=== PATIENT | male | born 1950 | race Caucasian/White ===

== ENCOUNTER → 2018-02-14 14:43 | Outpatient (CLI) | payer OTHER, SELFPAY ==
[2018-02-14 14:51] LABS: Bacteria Urine None Seen; RBC Urine None Seen (0-5/HPF); WBC Urine None Seen (0-5/HPF)
[2018-02-14 15:17] LABS: Appearance Urine UA CLEAR; Bilirubin Urine UA NEGATIVE (NEGATIVE); Color Urine UA YELLOW; Glucose Urine UA NEGATIVE (Negative); Ketones Urine UA NEGATIVE (NEGATIVE); Leukocyte Esterase Urine UA NEGATIVE (NEGATIVE); Nitrite Urine UA Negative (Negative); Occult Blood Urine UA NEGATIVE (Negative); Protein Urine UA NEGATIVE (Negative); Specific Gravity Urine UA <=1.005 (1.000-1.035); Urobilinogen Urine UA 0.2 E.U./dL (0.2); pH Urine UA 6.5 (4.5-8.0)
[2018-02-14 15:29] LABS: Culture Indicated Urine Cult Not Indicated; Urine Comments Microscopic Normal
[2018-02-14 15:50] LABS: Add Manual Diff / Slide Review NO; Basophils Percent Auto 0.6 % (0-2); Eosinophils Percent Auto 2.7 % (2-4); Hematocrit 45.3 % (41-53); Lymphocytes Percent Auto 24.2 % (25-40); Mean Corpuscular HGB Conc 35.4 % (30-36); Mean Corpuscular Volume 90.1 fL (80-100); Monocytes Percent Auto 9.1 % (3-14); Neutrophils Absolute Auto 3600 /uL (3000-5900); Neutrophils Percent Auto 63.4 % (50-75); Platelet Count 209 X10^3/uL (150-400); Red Blood Cell Count 5.02 X10^6/uL (4.5-5.9); Red Cell Distribution Width 13.4 % (11.6-14.8); White Blood Cell Count 5.6 X10^3/uL (4.5-11.0)
[2018-02-14 16:05] LABS: Alanine Aminotransferase 32 IU/L (21-72); Albumin 4.4 g/dL (3.5-5.0); Albumin Globulin Ratio 1.6 (1.0-2.8); Alkaline Phosphatase 59 U/L (38-126); Aspartate Aminotransferase 33 IU/L (17-59); Bilirubin Total 0.6 mg/dL (0.2-1.3); Calcium 9.2 mg/dL (8.4-10.2); Estimated Glomerular Filt Rate > 60.0 mL/min (>60); Globulin 2.8 g/dL (1.7-4.1); Glucose 86 mg/dL (80-110); HEMOLYSIS 19 (0-50); Potassium 4.8 mmol/L (3.4-5.1); Sodium 132 mmol/L (137-145); Total Protein 7.2 g/dL (6.3-8.2)
[2018-02-14 16:52] LABS: TSH w/ Reflex to FT4 3.92 uIU/mL (0.47-4.68)
[2018-02-14 16:54] LABS: Vitamin B12 496 pg/mL (239-931)
== END ==
PROVIDERS: PCP Family Medicine; Visit Provider Internal Medicine
DX: R10.30 Lower abdominal pain, unspecified (principal); N48.89 Other specified disorders of penis
CPT/HCPCS: 36415; 80053; 81001; 82607; 84443; 85025

== ENCOUNTER 2018-02-18 09:03 | Emergency (ER) | payer OTHER, SELFPAY ==
[2018-02-18 09:07] VITALS: BP 159/94; PULSE 74; RESP 14; TEMP 35.9; O2SAT 100; BMI 30.1
--- NOTE | 2018-02-18 09:29 | ED.BACK ---
HPI - Back Pain/Injury General Chief Complaint: Back Pain/Injury Stated Complaint: 'REALLY SERIOUS CASE OF SCIATICA' Time Seen by Provider: 02/18/18 09:22 Source: patient Mode of arrival: wheelchair Limitations: no limitations History of Present Illness HPI Narrative: Patient is a 67-year-old male presenting with left-sided back pain. He feels like this is sciatica. He has been quite active over the past couple of weeks more so than normal. His back has been bothering him off and on for a bit however this morning is unbearable and he cannot stand up. He denies any changes in bowel or bladder habits. He has not had any fever. He does have some numbness and tingling down his left leg. He did not fall there was no direct trauma to his back. MD Complaint: back pain Onset (ago): week(s) Quality: tingling Related Data Previous Rx's Medication Instructions Recorded rosuvastatin 10 mg PO HS #90 tab 09/28/17 sildenafil (antihypertensive) 20 mg PO QDAY #20 tab 10/24/17 [Revatio] candesartan 8 mg PO QDAY #90 tab 01/03/18 levothyroxine [Synthroid] 50 mcg PO QDAY #90 tab 01/03/18 diazepam [Valium] 5 mg PO Q8HR PRN #14 tab 02/18/18 meloxicam [Mobic] 7.5 mg PO DAILY #20 tab 02/18/18 Allergies Allergy/AdvReac Type Severity Reaction Status Date / Time No Known Drug Allergies Allergy Verified 02/14/18 13:56 Review of Systems Review of Systems All systems reviewed & are unremarkable except as noted in HPI and below Constitutional Denies chills, Denies fever(s), Denies lethargy and Denies weakness ENT Ears, Nose, Mouth, and Throat: Denies vertigo Cardiovascular Denies dyspnea and Denies dyspnea on exertion Respiratory Denies cough, Denies dyspnea, Denies dyspnea on exertion and Denies wheezing Gastrointestinal Gastrointestinal: Denies abdominal pain, Denies change in bowel habits, Denies diarrhea, Denies nausea and Denies vomiting Genitourinary Denies hematuria, Denies flank pain, Denies urinary incontinence and Denies urinary urgency Musculoskeletal Reports system reviewed and no additional complaints, except as docu, Reports back pain and Reports tingling Integumentary/Breasts Denies pruritus, Denies erythema, Denies rash and Denies wounds Neurologic Denies vertigo, Reports tingling, Denies paresthesias and Denies weakness Allergic/Immunologic Denies wheezing PFSH Medical History Hyperlipidemia (Acute) Hypertension (Acute) Surgical History History of cataract removal with insertion of prosthetic lens Family History Sister Age: 69 Parkinson's disease Social History Smoking Status: Former smoker Exam Initial Vital Signs Initial Vital Signs: Vital Signs Temperature 96.6 F L 02/18/18 09:07 Pulse Rate 74 02/18/18 09:07 Respiratory Rate 14 02/18/18 09:07 Blood Pressure 159/94 H 02/18/18 09:07 Pulse Oximetry 100 02/18/18 09:07 Const General: cooperative and well developed Nutritional Appearance: well nourished Orientation: alert, awake, oriented x3 and not confused Resp Effort & Inspection: normal respiratory effort and able to speak in complete sentences Cardio Pulses: normal peripheral pulses Back/Spine/Pelvis Other: In tender in lumbar area more on the right and piriformis. No overt will tenderness no step-offs. Sensation intact bilaterally slightly decreased to soft touch in right medial thigh Skin General: no rashes or lesions noted, No jaundice and No petechiae Extrem Right lower extremity: normal to inspection and full ROM Left lower extremity: normal to inspection and full ROM Course Orders Ordered: Discontinued Medications Diazepam (Valium) 5 mg PO NOW ONE Stop: 02/18/18 09:40 Last Admin: 02/18/18 09:56 Dose: 5 mg Ketorolac Tromethamine (Toradol) 60 mg IM NOW ONE Stop: 02/18/18 09:40 Last Admin: 02/18/18 09:55 Dose: 60 mg Vital Signs - 8 hr 02/18/18 09:07 Temperature 96.6 F L Pulse Rate 74 Respiratory Rate 14 Blood Pressure 159/94 H Pulse Oximetry 100 Discharge Plan Departure Patient Disposition: Home, Self-Care Clinical Impression: Sciatic leg pain Discharge Date/Time: 02/18/18 10:48 Interventions: ED Discharge Assessment Last Done: 02/18/18 10:47 Instructions: DI for Back Pain With Sciatica Activity Restrictions/Additional Instructions: *You have been diagnosed with back pain with sciatic pain *What to do: May require physical therapy, increase activity as rate, no lifting more than 10-15, *Take medications as directed -Mobic 1 a day with food, do not combine with other and says that she has ibuprofen, Advil etc -Valium every 8 hr if needed for severe muscle spasm do not drive this causes sleepiness and dizziness *Follow up with your primary care provider in 2-3 days *Return to ER if you should have increasing weakness, loss of urine or stool, or any new, worsening or concerning symptoms Prescriptions: New meloxicam [Mobic] 7.5 mg tablet 7.5 mg PO DAILY Qty: 20 RF: 0 diazepam [Valium] 5 mg tablet 5 mg PO Q8HR PRN (Reason: muscle spasm) Qty: 14 RF: 0 No Action rosuvastatin 10 MG tablet 10 mg PO HS Qty: 90 RF: 2 sildenafil (antihypertensive) [Revatio] 20 MG tablet 20 mg PO QDAY Qty: 20 RF: 3 candesartan 8 MG tablet 8 mg PO QDAY Qty: 90 RF: 2 levothyroxine [Synthroid] 50 MCG tablet 50 mcg PO QDAY Qty: 90 RF: 2
[2018-02-18] MEDS: KETOROLAC 60 MG/2 ML VIAL IM (09:55)
[2018-02-18] MEDS: diazePAM 5 MG TABLET PO (09:56)
== END 2018-02-18 10:48 | disposition home or self-care (01) ==
PROVIDERS: Emergency Provider Emergency Medicine; PCP Family Medicine
DX: M54.30 Sciatica, unspecified side (principal)
CPT/HCPCS: 96372; 99282; 99283; J1885

== ENCOUNTER → 2018-04-03 09:22 | Outpatient (CLI) | payer OTHER, SELFPAY ==
[2018-04-03 11:29] LABS: BUN Creatinine Ratio 20.9 (6-22); Blood Urea Nitrogen 23 mg/dL (9-20); Calcium 9.1 mg/dL (8.4-10.2); Carbon Dioxide 28 mmol/L (22-32); Chloride 98 mmol/L (98-107); Estimated Glomerular Filt Rate > 60.0 mL/min (>60); Glucose 70 mg/dL (80-110); HEMOLYSIS < 15 (0-50); Potassium 5.2 mmol/L (3.4-5.1); Sodium 134 mmol/L (137-145)
== END ==
PROVIDERS: PCP Family Medicine; Visit Provider Internal Medicine
DX: E78.1 Pure hyperglyceridemia (principal); E87.1 Hypo-osmolality and hyponatremia
CPT/HCPCS: 36415; 80048

== ENCOUNTER → 2018-05-20 12:16 | Outpatient (CLI) | payer OTHER, SELFPAY ==
[2018-05-20 13:12] LABS: BUN Creatinine Ratio 19.1 (6-22); Blood Urea Nitrogen 21 mg/dL (9-20); Calcium 9.2 mg/dL (8.4-10.2); Carbon Dioxide 29 mmol/L (22-32); Chloride 101 mmol/L (98-107); Estimated Glomerular Filt Rate > 60.0 mL/min (>60); Glucose 102 mg/dL (80-110); HEMOLYSIS < 15 (0-50); Potassium 5.1 mmol/L (3.4-5.1); Sodium 140 mmol/L (137-145)
== END ==
PROVIDERS: PCP Family Medicine; Visit Provider Internal Medicine
DX: I10 Essential (primary) hypertension (principal)
CPT/HCPCS: 36415; 80048

== ENCOUNTER → 2018-10-22 07:13 | Outpatient (CLI) | payer MEDICARE, OTHER, SELFPAY ==
[2018-10-22 08:03] LABS: Add Manual Diff / Slide Review NO; Basophils Absolute Auto 0 /uL (0-100); Basophils Percent Auto 0.5 % (0-2); Eosinophils Absolute Auto 200 /uL (0-450); Eosinophils Percent Auto 3.5 % (2-4); Hematocrit 45.8 % (41-53); Hemoglobin 15.5 g/dL (13.5-17.5); Lymphocytes Absolute Auto 1700 /uL (1100-4500); Lymphocytes Percent Auto 34.1 % (25-40); Mean Corpuscular HGB Conc 33.9 % (30-36); Mean Corpuscular Hemoglobin 30.9 PG (26-34); Mean Corpuscular Volume 91.2 fL (80-100); Monocytes Absolute Auto 400 /uL (0-900); Monocytes Percent Auto 8.3 % (3-14); Neutrophils Absolute Auto 2600 /uL (1500-7000); Neutrophils Percent Auto 53.6 % (50-75); Platelet Count 216 X10^3/uL (150-400); Red Blood Cell Count 5.02 X10^6/uL (4.5-5.9); Red Cell Distribution Width 13.4 % (11.6-14.8); White Blood Cell Count 4.9 X10^3/uL (4.5-11.0)
[2018-10-22 08:54] LABS: Alanine Aminotransferase 44 IU/L (21-72); Albumin 4.5 g/dL (3.5-5.0); Albumin Globulin Ratio 1.6 (1.0-2.8); Alkaline Phosphatase 60 U/L (38-126); Aspartate Aminotransferase 40 IU/L (17-59); BUN Creatinine Ratio 15.8 (6-22); Bilirubin Total 0.7 mg/dL (0.2-1.3); Blood Urea Nitrogen 19 mg/dL (9-20); Calcium 9.4 mg/dL (8.4-10.2); Carbon Dioxide 28 mmol/L (22-32); Chloride 98 mmol/L (98-107); Cholesterol 200 mg/dL (140-199); Estimated Glomerular Filt Rate > 60.0 mL/min (>60); Globulin 2.8 g/dL (1.7-4.1); Glucose 101 mg/dL (80-110); HDL Cholesterol 52 mg/dL (40-60); HEMOLYSIS < 15 (0-50); LDL Cholesterol Calculated 104 mg/dL (<100); Potassium 4.2 mmol/L (3.4-5.1); Sodium 135 mmol/L (137-145); Total Protein 7.3 g/dL (6.3-8.2); Triglycerides 219 mg/dL (35-150)
[2018-10-22 09:53] LABS: Free T4, Direct Thyroxine 1.04 ng/dL (0.78-2.19)
== END ==
PROVIDERS: PCP Family Medicine; Visit Provider Family Medicine
DX: E03.9 Hypothyroidism, unspecified (principal); E78.5 Hyperlipidemia, unspecified; I10 Essential (primary) hypertension
CPT/HCPCS: 36415; 80053; 80061; 84439; 84443; 85025

== ENCOUNTER → 2019-10-23 07:42 | Outpatient (CLI) | payer MEDICARE, OTHER, SELFPAY ==
[2019-10-23 08:36] LABS: Add Manual Diff / Slide Review NO; Basophils Absolute Auto 0 /uL (0-100); Basophils Percent Auto 0.7 % (0-2); Eosinophils Absolute Auto 200 /uL (0-450); Eosinophils Percent Auto 3.2 % (2-4); Hematocrit 44.6 % (41-53); Hemoglobin 15.3 g/dL (13.5-17.5); Lymphocytes Absolute Auto 1800 /uL (1100-4500); Lymphocytes Percent Auto 34.8 % (25-40); Mean Corpuscular HGB Conc 34.4 % (30-36); Mean Corpuscular Hemoglobin 31.3 PG (26-34); Mean Corpuscular Volume 90.9 fL (80-100); Monocytes Absolute Auto 500 /uL (0-900); Monocytes Percent Auto 9.4 % (3-14); Neutrophils Absolute Auto 2600 /uL (1500-7000); Neutrophils Percent Auto 51.9 % (50-75); Platelet Count 224 X10^3/uL (150-400)
[2019-10-23 08:43] LABS: Alanine Aminotransferase 28 IU/L (<50); Albumin 4.2 g/dL (3.5-5.0); Albumin Globulin Ratio 1.4 (1.0-2.8); Alkaline Phosphatase 62 U/L (38-126); Aspartate Aminotransferase 31 IU/L (17-59); BUN Creatinine Ratio 13.3 (6-22); Bilirubin Total 0.7 mg/dL (0.2-1.3); Blood Urea Nitrogen 16 mg/dL (9-20); Calcium 9.5 mg/dL (8.4-10.2); Carbon Dioxide 25 mmol/L (22-32); Chloride 98 mmol/L (98-107); Cholesterol 195 mg/dL (140-199); Estimated Glomerular Filt Rate > 60.0 mL/min (>60); Globulin 2.9 g/dL (1.7-4.1); Glucose 100 mg/dL (80-110); HDL Cholesterol 44 mg/dL (40-60); HEMOLYSIS < 15 (0-50); LDL Cholesterol Calculated 96 mg/dL (<100); Potassium 4.7 mmol/L (3.4-5.1); Sodium 134 mmol/L (137-145); Total Protein 7.1 g/dL (6.3-8.2); Triglycerides 273 mg/dL (35-150)
[2019-10-23 09:13] LABS: TSH w/ Reflex to FT4 2.91 uIU/mL (0.47-4.68)
== END ==
PROVIDERS: PCP Family Medicine; Visit Provider Family Medicine
DX: E03.9 Hypothyroidism, unspecified (principal); E78.5 Hyperlipidemia, unspecified; I10 Essential (primary) hypertension; Z12.5 Encounter for screening for malignant neoplasm of prostate
CPT/HCPCS: 36415; 80053; 80061; 84443; 85025; G0103

== ENCOUNTER → 2019-12-18 11:57 | Outpatient (CLI) | payer MEDICARE, OTHER, SELFPAY ==
[2019-12-20 12:15] LABS: COVID19 Sendout Not Detected (Not Detected)
== END ==
PROVIDERS: PCP Family Medicine; Visit Provider Family Medicine
DX: R05 Cough (principal); R06.02 Shortness of breath
CPT/HCPCS: 87635

== ENCOUNTER → 2020-02-12 07:12 | Outpatient (CLI) | payer MEDICARE, OTHER, SELFPAY ==
--- NOTE | 2020-02-12 | DI.CT.S_ITS ---
PROCEDURE: CT SINUS SCREEN WO CON INDICATIONS: OTHER CHRONIC SINUSITIS TECHNIQUE: Noncontrast 3.0 mm axial images acquired from the frontal sinuses to the mid-sella, with coronal and sagittal reformats. For radiation dose reduction, the following was used: automated exposure control, adjustment of mA and/or kV according to patient size. COMPARISON: None. FINDINGS: Image quality: Excellent. Maxillary Sinuses: No bony remodeling or destruction. Sinuses are clear. Ethmoid Air Cells: No bony remodeling or destruction. Sinuses are clear. Sphenoid Sinuses: No bony remodeling or destruction. Sinuses are clear. Frontal Sinuses: No bony remodeling or destruction. Sinuses are clear. Ostiomeatal Complexes: Ostiomeatal complexes are patent. No Terri cells. Miscellaneous: Visualized intra-orbital contents are normal. No ness bullosa or paradoxical turbinate curvature. There is mild rightward nasal septal deviation with mild bilateral nasal airway stenosis. IMPRESSION: No acute sinusitis foun, no chronic mucosal thickening seen. Note is made of mild right midline nasal septal deviation with associated mild bilateral nasal airway stenosis. Dictated by: Devang Freitas M.D. on 02/12/2020 at 9:31 Approved by: Devang Freitas M.D. on 02/12/2020 at 9:33
== END ==
PROVIDERS: PCP Family Medicine; Referring Provider Otolaryngology; Visit Provider Otolaryngology
DX: J32.8 Other chronic sinusitis (principal); R09.82 Postnasal drip; R51 Headache; J34.2 Deviated nasal septum; J34.89 Other specified disorders of nose and nasal sinuses
CPT/HCPCS: 70486

== ENCOUNTER → 2020-10-27 08:10 | Outpatient (CLI) | payer MEDICARE, OTHER, SELFPAY ==
[2020-10-27 09:34] LABS: Add Manual Diff / Slide Review NO; Basophils Absolute Auto 0 /uL (0-100); Basophils Percent Auto 0.7 % (0-2); Eosinophils Absolute Auto 100 /uL (0-450); Eosinophils Percent Auto 2.8 % (2-4); Hematocrit 43.1 % (41-53); Hemoglobin 15.2 g/dL (13.5-17.5); Lymphocytes Absolute Auto 1200 /uL (1100-4500); Lymphocytes Percent Auto 29.3 % (25-40); Mean Corpuscular HGB Conc 35.2 % (30-36); Mean Corpuscular Hemoglobin 31.9 PG (26-34); Mean Corpuscular Volume 90.4 fL (80-100); Monocytes Absolute Auto 500 /uL (0-900); Neutrophils Absolute Auto 2200 /uL (1500-7000); Neutrophils Percent Auto 55.2 % (50-75); Platelet Count 212 X10^3/uL (150-400); Red Blood Cell Count 4.77 X10^6/uL (4.5-5.9); Red Cell Distribution Width 13.3 % (11.6-14.8)
[2020-10-27 09:48] LABS: Alanine Aminotransferase 31 IU/L (<50); Albumin 4.4 g/dL (3.5-5.0); Albumin Globulin Ratio 1.7 (1.0-2.8); Alkaline Phosphatase 66 U/L (38-126); Aspartate Aminotransferase 38 IU/L (17-59); BUN Creatinine Ratio 19.8 (6-22); Bilirubin Total 0.6 mg/dL (0.2-1.3); Blood Urea Nitrogen 20 mg/dL (9-20); Calcium 9.4 mg/dL (8.4-10.2); Carbon Dioxide 25 mmol/L (22-32); Chloride 95 mmol/L (98-107); Cholesterol 204 mg/dL (140-199); Estimated Glomerular Filt Rate > 60.0 mL/min (>60); Globulin 2.6 g/dL (1.7-4.1); Glucose 105 mg/dL (80-110); HDL Cholesterol 55 mg/dL (40-60); HEMOLYSIS < 15 (0-50); LDL Cholesterol Calculated 123 mg/dL (<100); Potassium 4.6 mmol/L (3.4-5.1); Sodium 127 mmol/L (137-145); Triglycerides 130 mg/dL (35-150)
[2020-10-27 10:28] LABS: Thyroid Stimulating Hormone 3.48 uIU/mL (0.47-4.68)
== END ==
PROVIDERS: PCP Family Medicine; Referring Provider Family Medicine; Visit Provider Family Medicine
DX: E03.9 Hypothyroidism, unspecified (principal); I10 Essential (primary) hypertension; E78.5 Hyperlipidemia, unspecified; Z12.5 Encounter for screening for malignant neoplasm of prostate
CPT/HCPCS: 36415; 80053; 80061; 84443; 85025; G0103

== ENCOUNTER → 2020-12-01 12:12 | Outpatient (CLI) | payer MEDICARE, OTHER, SELFPAY ==
[2020-12-01] MEDS: COVID-19 VACC, Ad26(JANSSEN)/PF 0.5 ML IM (12:34)
== END ==
PROVIDERS: PCP Family Medicine; Visit Provider Internal Medicine
DX: Z23 Encounter for immunization (principal)
CPT/HCPCS: 0031A; 91303

== ENCOUNTER → 2021-11-10 08:07 | Outpatient (CLI) | payer MEDICARE, OTHER, SELFPAY ==
[2021-11-10 09:19] LABS: Add Manual Diff / Slide Review NO; Basophils Absolute Auto 0 /uL (0-100); Eosinophils Absolute Auto 200 /uL (0-450); Eosinophils Percent Auto 4.7 % (2-4); Hematocrit 41.8 % (41-53); Hemoglobin 14.4 g/dL (13.5-17.5); Lymphocytes Absolute Auto 1200 /uL (1100-4500); Lymphocytes Percent Auto 30.8 % (25-40); Mean Corpuscular HGB Conc 34.4 % (30-36); Mean Corpuscular Hemoglobin 31.1 PG (26-34); Mean Corpuscular Volume 90.3 fL (80-100); Monocytes Absolute Auto 500 /uL (0-900); Monocytes Percent Auto 11.8 % (3-14); Neutrophils Absolute Auto 2100 /uL (1500-7000); Neutrophils Percent Auto 51.7 % (50-75); Platelet Count 218 X10^3/uL (150-400); Red Blood Cell Count 4.63 X10^6/uL (4.5-5.9); Red Cell Distribution Width 13.8 % (11.6-14.8)
[2021-11-10 09:35] LABS: Alanine Aminotransferase 21 IU/L (<50); Albumin 4.3 g/dL (3.5-5.0); Albumin Globulin Ratio 1.7 (1.0-2.8); Alkaline Phosphatase 50 U/L (38-126); Aspartate Aminotransferase 38 IU/L (17-59); BUN Creatinine Ratio 24.2 (6-22); Bilirubin Total 0.6 mg/dL (0.2-1.3); Blood Urea Nitrogen 30 mg/dL (9-20); Calcium 9.3 mg/dL (8.4-10.2); Carbon Dioxide 27 mmol/L (22-32); Chloride 96 mmol/L (98-107); Cholesterol 302 mg/dL (140-199); Estimated Glomerular Filt Rate 57.8 mL/min (>60); Globulin 2.6 g/dL (1.7-4.1); Glucose 97 mg/dL (80-110); HDL Cholesterol 68 mg/dL (40-60); HEMOLYSIS < 15 (0-50); LDL Cholesterol Calculated 206 mg/dL (<100); Potassium 4.7 mmol/L (3.4-5.1); Sodium 130 mmol/L (137-145); Total Protein 6.9 g/dL (6.3-8.2); Triglycerides 140 mg/dL (35-150)
[2021-11-10 10:16] LABS: Thyroid Stimulating Hormone 2.74 uIU/mL (0.47-4.68)
== END ==
PROVIDERS: PCP Family Medicine; Referring Provider Family Medicine; Visit Provider Family Medicine
DX: I10 Essential (primary) hypertension (principal); E78.5 Hyperlipidemia, unspecified
CPT/HCPCS: 36415; 80053; 80061; 84443; 85025

== ENCOUNTER → 2022-11-03 08:05 | Outpatient (CLI) | payer MEDICARE, OTHER, SELFPAY ==
[2022-11-03 09:04] LABS: Add Manual Diff / Slide Review NO; Basophils Absolute Auto 0 /uL (0-100); Basophils Percent Auto 0.8 % (0-2); Eosinophils Absolute Auto 200 /uL (0-450); Eosinophils Percent Auto 4.5 % (2-4); Hematocrit 41.4 % (41-53); Hemoglobin 14.1 g/dL (13.5-17.5); Lymphocytes Absolute Auto 1500 /uL (1100-4500); Lymphocytes Percent Auto 30.5 % (25-40); Mean Corpuscular HGB Conc 34.2 % (30-36); Mean Corpuscular Hemoglobin 30.3 PG (26-34); Mean Corpuscular Volume 88.5 fL (80-100); Monocytes Absolute Auto 500 /uL (0-900); Monocytes Percent Auto 11.5 % (3-14); Neutrophils Absolute Auto 2500 /uL (1500-7000); Neutrophils Percent Auto 52.7 % (50-75); Platelet Count 234 X10^3/uL (150-400); Red Blood Cell Count 4.67 X10^6/uL (4.5-5.9); White Blood Cell Count 4.8 X10^3/uL (4.5-11.0)
[2022-11-03 09:42] LABS: Alanine Aminotransferase 25 IU/L (<50); Albumin 4.3 g/dL (3.5-5.0); Albumin Globulin Ratio 1.5 (1.0-2.8); Alkaline Phosphatase 56 U/L (38-126); Aspartate Aminotransferase 35 IU/L (17-59); BUN Creatinine Ratio 20.2 (6-22); Bilirubin Total 0.7 mg/dL (0.2-1.3); Blood Urea Nitrogen 19 mg/dL (9-20); Calcium 8.9 mg/dL (8.4-10.2); Carbon Dioxide 25 mmol/L (22-32); Chloride 90 mmol/L (98-107); Cholesterol 313 mg/dL (140-199); Estimated Glomerular Filt Rate > 60 mL/min (>60); Globulin 2.8 g/dL (1.7-4.1); Glucose 92 mg/dL (80-110); HDL Cholesterol 66 mg/dL (40-60); HEMOLYSIS < 15 (0-50); LDL Cholesterol Calculated 220 mg/dL (<100); Potassium 4.6 mmol/L (3.4-5.1); Sodium 127 mmol/L (137-145); Total Protein 7.1 g/dL (6.3-8.2); Triglycerides 135 mg/dL (35-150)
[2022-11-03 10:11] LABS: Thyroid Stimulating Hormone 3.14 uIU/mL (0.47-4.68)
== END ==
PROVIDERS: PCP Family Medicine; Referring Provider Family Medicine; Visit Provider Family Medicine
DX: E03.9 Hypothyroidism, unspecified (principal); E78.2 Mixed hyperlipidemia; I10 Essential (primary) hypertension; Z79.899 Other long term (current) drug therapy
CPT/HCPCS: 36415; 80053; 80061; 84443; 85025

== ENCOUNTER 2022-12-28 12:21 | Day surgery (SDC) | payer MEDICARE, OTHER, SELFPAY ==
--- NOTE | 2022-12-28 | PATH_ITS ---
[facility] Accession Number: [id number] No. of containers..02 Tissue . 01 Material submitted: . PART A: hepatic flexure - HEPATIC FLEXURE COLON POLYP PART B: colon - TRANSVERSE COLON POLYP . 01 Diagnosis: A. Hepatic Flexure Polyp: Tubular adenoma. . B. Transverse Colon Polyp: Tubular adenoma. MRV 01/02/2023 1226 Local . 01 Electronically signed: . Toy Guerrero MD, PhD, Pathologist NPI- [id number] . 01 Gross description: . Part A: HEPATIC FLEXURE COLON POLYP: Received in formalin is 1 fragment(s) of bloom, soft tissue measuring 0.3 x 0.3 x 0.3 cm submitted entirely in 1 cassette(s) Part B: TRANSVERSE COLON POLYP: Received in formalin are 3 fragment(s) of bloom, soft tissue measuring 0.1 x 0.1 x 0.1 cm to 0.2 x 0.2 x 0.2 cm submitted entirely in 1 cassette(s) /ASHLEY 12/29/2022 2359 Local . 01 Pathologist provided ICD-10: D12.3 . 01 CPT . 775341, 248745 Specimen Comment: A courtesy copy of this report has been sent to [facility] Pathology Performed at: 01 [facility] [address] [place] [address] [address], [place], [place] [id number] MD Will Rosario MD Phone: [phone]
[2022-12-28 12:49] VITALS: BMI 28.1
[2022-12-28 12:56] VITALS: BP 172/92; PULSE 69; RESP 16; TEMP 36.2; O2SAT 99
[2022-12-28] MEDS: LACTATED RINGERS 1,000 ML 42 ML IV (13:00)
[2022-12-28 13:14] VITALS: BP 156/82
--- NOTE | 2022-12-28 13:53 | PM.HP.1 ---
History of Present Illness History of Present Illness Date Patient Seen: 12/28/22 Time Patient Seen: 13:53 Chief complaint: Colonoscopy Narrative: Mr. Rowley is 72-year-old relatively healthy man who presents today for a screening colonoscopy. He has had a colonoscopy before it was ?several years ago? (probably more than 10) and he does not recall having had any polyps at that time. He does not have any concerning symptoms no bleeding or changes in bowel habits. He has no family history of colon cancer. [facility] Medical History (Updated 12/28/22 @ 13:55 by Melina Goetz MD) Acne (~1965) Aortic stenosis (~1999) Cataract (2003) Chicken pox (~195) Coronary artery disease (~1999) Dengue fever (2007) Detached retina (2004) Hyperlipidemia Hypertension (2004) Measles (~195) Mumps (~195) Eliz's syndrome (2002) Surgical History Anesthesia H/O detached retina repair (2004) History of cataract removal with insertion of prosthetic lens (2003) Family History Sister Age: 74 Parkinson's disease Father Heart disease Mother Emphysema of lung Sister No problems noted. Social History marital status: household members: spouse Smoking Status: Former smoker alcohol intake: current substance use type: does not use Meds Home Medications and Allergies Home Medications Medication Instructions Recorded Confirmed Type fluticasone propionate 50 1 spray intranasal BID #15.8 mL 06/02/22 12/28/22 Rx mcg/actuation nasal spray,suspension (Flonase Allergy Relief) levothyroxine 75 mcg tablet See Rx Instructions .Route 11/06/22 12/28/22 Rx .COMPLEX #90 tabs amlodipine 10 mg-benazepril 20 mg 1 cap PO DAILY 12/28/22 12/28/22 History capsule ascorbic acid (vitamin C) 500 mg 500 mg PO DAILY 12/28/22 12/28/22 History tablet (Vitamin C) magnesium 200 mg tablet 400 mg PO DAILY 12/28/22 12/28/22 History multivitamin 1 tab PO DAILY 12/28/22 12/28/22 History omega 0-rax-auf-fish oil 1,000 mg 1 cap PO DAILY 12/28/22 12/28/22 History (120 mg-180 mg) capsule (Fish Oil) sildenafil (pulm.hypertension) 20 20 mg PO PRN PRN Erectile 12/28/22 12/28/22 History mg tablet (Revatio) Dysfunction Allergies Allergy/AdvReac Type Severity Reaction Status Date / Time No Known Drug Allergies Allergy Verified 12/28/22 12:48 Exam Vital Signs (past 8 hours): - 12/28/22 12:56 12/28/22 13:14 Temperature 97.2 F L Pulse Rate 69 Respiratory Rate 16 Blood Pressure 172/92 H 156/82 H Pulse Oximetry 99 Oxygen Delivery Method Room Air Oxygen Delivery Method Room Air Const General: cooperative, healthy appearing and comfortable HENMT Head: normal to inspection Eyes General: appearance normal, both eyes and all related structures Resp Effort & Inspection: normal respiratory effort and able to speak in complete sentences GI Inspection: normal to inspection Palpation: soft and No tender Assessment & Plan Assessment and plan (1) Screening for colon cancer: Status: Acute Assessment & Plan narrative: Presents today for screening colonoscopy I discussed the risks benefits and alternatives including but not limited to perforation of the colon and an incomplete exam he fully understands these risks and would like to proceed.
[2022-12-28 14:38] VITALS: BP 130/68; PULSE 61; RESP 17; TEMP 37.1; O2SAT 99
[2022-12-28 14:42] VITALS: BP 144/76; PULSE 58; RESP 13; TEMP 37; O2SAT 99
--- NOTE | 2022-12-28 14:44 | PM.OP.COLON ---
Operative Date/Time/Diagnoses Date of procedure: 12/28/22 Pre-op diagnosis: Screening for colon cancer Post-op diagnosis: same Procedure & Clinicians Study performed: Colonoscopy and biopsy Same procedure as scheduled: Yes Surgeon: Melina Goetz Procedure Notes Procedure in detail: Patient was taken to the endoscopy suite and placed in a left lateral decubitus position. Time-out was performed. Conscious sedation with the help of an anesthesiologist was performed and maintained throughout the procedure. A digital rectal exam was performed. The prostate was smooth and there were no masses or strictures. The colonoscope was introduced into the anal canal and advanced through to the cecum. Abdominal pressure was required to reach the cecum. Photograph was obtained of the appendiceal orifice. The prep was good [place] bowel prep score 2. The scope was then withdrawn slowly over the course of 19 minutes. A small very small polyp was seen at the hepatic flexure and removed in total with the biopsy forceps. A 2nd larger polyp though still less than 1 cm in size was seen in the transverse colon and removed with 2 sweeps of the biopsy forceps. There were a few small scattered diverticula within the sigmoid colon. It was retroflexed and a photograph obtained of the hemorrhoidal piles which appeared normal. Findings: divertiulosis and polyp(s) Specimen(s): other (1. Hepatic flexure colon polyp very small 2. Transverse colon polyps small) Complications: none Post-procedure Plan for aftercare: Usually the follow-up exam will be recommended in between 5 and 10 years based on the pathology of these polyps.
[2022-12-28 14:53] VITALS: BP 140/87; PULSE 60; RESP 18; TEMP 36.6; O2SAT 99
== END 2022-12-28 15:14 | disposition home or self-care (01) ==
PROVIDERS: PCP Family Medicine; Referring Provider Surgery; Visit Provider Surgery
PROC: 0DJD8ZZ Inspection of Lower Intestinal Tract, Via Natural or Artificial Opening Endoscopic (ICD-10-PCS; CPT 45378; principal; 2022-12-28 13:30)
DX: Z12.11 Encounter for screening for malignant neoplasm of colon (principal); K64.4 Residual hemorrhoidal skin tags; K57.30 Diverticulosis of large intestine without perforation or abscess without bleeding; D12.3 Benign neoplasm of transverse colon
CPT/HCPCS: 45380; J2704

== ENCOUNTER 2023-01-23 10:21 | Emergency (ER) | payer MEDICARE, OTHER, SELFPAY ==
[2023-01-23 10:22] VITALS: BP 200/91; PULSE 59; RESP 19; TEMP 36.9; O2SAT 98; BMI 27.9
--- NOTE | 2023-01-23 11:42 | ED.NEUROSD ---
HPI - Neuro Symptoms/Deficit General Chief Complaint: Neuro Symptoms/Deficit Stated Complaint: sent by [facility] poss stroke Time Seen by Provider: 01/23/23 11:25 Source: patient Mode of arrival: Ambulatory History of Present Illness HPI Narrative: Patient is a 72-year-old male who was sent over from the walk-in clinic for evaluation of a possible stroke. He states that a couple times a day only for a couple minutes he would have tingling to the right side of his tongue. He reports no other symptoms. No headache. No vision changes. No chest pain. No upper lower extremity symptoms. On Anticoagulants: No Related Data Home Medications Medication Instructions Recorded Confirmed amlodipine 10 mg-benazepril 20 mg 1 cap PO DAILY 12/28/22 01/23/23 capsule ascorbic acid (vitamin C) 500 mg 500 mg PO DAILY 12/28/22 01/23/23 tablet (Vitamin C) magnesium 200 mg tablet 400 mg PO DAILY 12/28/22 01/23/23 multivitamin 1 tab PO DAILY 12/28/22 01/23/23 omega 1-tui-lir-fish oil 1,000 mg 1 cap PO DAILY 12/28/22 01/23/23 (120 mg-180 mg) capsule (Fish Oil) sildenafil (pulm.hypertension) 20 20 mg PO PRN PRN Erectile 12/28/22 01/23/23 mg tablet (Revatio) Dysfunction Previous Rx's Medication Instructions Recorded fluticasone propionate 50 1 spray intranasal BID #15.8 mL 06/02/22 mcg/actuation nasal spray,suspension (Flonase Allergy Relief) levothyroxine 75 mcg tablet See Rx Instructions .Route 11/06/22 .COMPLEX #90 tabs Allergies Allergy/AdvReac Type Severity Reaction Status Date / Time No Known Drug Allergies Allergy Verified 01/23/23 10:46 Review of Systems Review of Systems ROS Unobtainable: All systems reviewed & are unremarkable except as noted in HPI and below Hematologic/Lymphatic On Anticoagulants: No Patient History Medical History Acne (~1965) Aortic stenosis (~1999) Cataract (2003) Chicken pox (~195) Coronary artery disease (~1999) Dengue fever (2007) Detached retina (2004) Hyperlipidemia Hypertension (2004) Measles (~195) Mumps (~1955) Eliz's syndrome (2002) Surgical History Anesthesia H/O detached retina repair (2004) History of cataract removal with insertion of prosthetic lens (2003) Family History Sister Age: 74 Parkinson's disease Father Heart disease Mother Emphysema of lung Sister No problems noted. Social History marital status: household members: spouse Smoking Status: Former smoker alcohol intake: current substance use type: does not use Smoking Status: Former smoker alcohol intake frequency: 0-2 drinks per day Substance Use Type: does not use Exam Initial Vital Signs Initial Vital Signs: Vital Signs Temperature 98.5 F 01/23/23 10:22 Pulse Rate 59 L 01/23/23 10:22 Respiratory Rate 19 01/23/23 10:22 Blood Pressure 200/91 H 01/23/23 10:22 Pulse Oximetry 98 01/23/23 10:22 Oxygen Delivery Method Room Air 01/23/23 10:22 Const General: cooperative, comfortable and No ill appearing HENMT Head: normal to inspection and normocephalic Eyes Pupils: PERRL EOM: EOM intact bilaterally Resp Effort & Inspection: normal respiratory effort Auscultation: clear to auscultation bilaterally Cardio Rate: regular rate Rhythm: regular rhythm GI Inspection: normal to inspection Skin General: no rashes or lesions noted Neuro General: patient alert, patient awake, patient oriented x3 and moves all extremities Cranial Nerves: CN's II-XI intact bilaterally Cognition: normal cognition Speech: speech normal Sensory Exam: no sensory deficits noted Extrem General: normal to inspection and capillary refill normal Scores GCS [place] coma scale eye opening: Spontaneous [place] coma scale verbal response: Orientated [place] coma scale motor response: Obey commands [place] coma scale total score: 15 Course Vital Signs Vital signs: Vital Signs - 8 hr 01/23/23 10:22 01/23/23 11:55 Temperature 98.5 F Pulse Rate 59 L 51 L Respiratory Rate 19 18 Blood Pressure 200/91 H 178/85 H Pulse Oximetry 98 96 Oxygen Delivery Method Room Air Room Air MDM - Neuro Symptoms/Deficit MDM Narrative Medical decision making narrative: Patient currently has no symptoms. His only symptom was tingling to the right side of his tongue but she is not having. It only last seconds to minutes when it occurs. He is no other associated symptoms. Nonfocal neurologic exam today. Low suspicion for CVA. Low suspicion for TIA. Low suspicion for Tracy's palsy. Unsure the exact etiology of the patient's symptoms and he understands this however if it continues he may need to see dental or potentially your nose and throat. He does not have any specific dental infection today. Patient expressed understanding and agreement with this plan. Discharge Plan Departure Patient Disposition: Home Clinical Impression: Paresthesia of tongue Instructions: DI for Numbness/Tingling Activity Restrictions/Additional Instructions: I recommend that you continue to take all of your medications as directed. I also recommend that you are taking your blood pressure at home on a regular basis and recording these numbers so that you can discuss this with your primary doctor to see if you need any changes in your blood pressure medications. Return to the emergency department for new or worsening symptoms. Prescriptions: No Action levothyroxine 75 mcg tablet See Rx Instructions .ROUTE .COMPLEX Qty: 90 3RF Dose Instruction: TAKE ONE TABLET BY MOUTH ONE TIME DAILY Rx Instructions: TAKE ONE TABLET BY MOUTH ONE TIME DAILY fluticasone propionate [Flonase Allergy Relief] 50 mcg/actuation spray,suspension 1 spray NASAL BID Qty: 15.8 3RF Rx Instructions: administer into each nostril multivitamin Tablet 1 tab PO DAILY ascorbic acid (vitamin C) [Vitamin C] 500 mg Tablet 500 mg PO DAILY magnesium 200 mg Tablet 400 mg PO DAILY omega 0-pgi-hmu-fish oil [Fish Oil] 1,000 mg (120 mg-180 mg) Capsule 1 cap PO DAILY amlodipine-benazepril 10-20 mg capsule 1 cap PO DAILY sildenafil (pulm.hypertension) [Revatio] 20 mg tablet 20 mg PO PRN PRN (Reason: Erectile Dysfunction) Referrals: Lam Bearden MD [Primary Care Provider] - Stand Alone Forms: Patient Portal/API
[2023-01-23 11:55] VITALS: BP 178/85; PULSE 51; RESP 18; O2SAT 96
== END 2023-01-23 12:02 | disposition home or self-care (01) ==
PROVIDERS: Emergency Provider Emergency Medicine; PCP Family Medicine
DX: R20.2 Paresthesia of skin (principal)
CPT/HCPCS: 99281

== ENCOUNTER → 2023-12-14 07:03 | Outpatient (CLI) | payer MEDICARE, OTHER, SELFPAY ==
[2023-12-14 07:44] LABS: Add Manual Diff / Slide Review NO; Basophils Absolute Auto 0 /uL (0-100); Basophils Percent Auto 0.7 % (0-2); Eosinophils Absolute Auto 100 /uL (0-450); Eosinophils Percent Auto 2.1 % (2-4); Hematocrit 44.2 % (41-53); Hemoglobin 15.2 g/dL (13.5-17.5); Lymphocytes Absolute Auto 1100 /uL (1100-4500); Lymphocytes Percent Auto 20.2 % (25-40); Mean Corpuscular HGB Conc 34.3 % (30-36); Mean Corpuscular Hemoglobin 30.8 PG (26-34); Mean Corpuscular Volume 89.6 fL (80-100); Monocytes Absolute Auto 600 /uL (0-900); Monocytes Percent Auto 11.2 % (3-14); Neutrophils Absolute Auto 3700 /uL (1500-7000); Neutrophils Percent Auto 65.8 % (50-75); Platelet Count 262 X10^3/uL (150-400); Red Blood Cell Count 4.93 X10^6/uL (4.5-5.9); Red Cell Distribution Width 13.8 % (11.6-14.8); White Blood Cell Count 5.6 X10^3/uL (4.5-11.0)
[2023-12-14 08:19] LABS: Alanine Aminotransferase 18 IU/L (<50); Albumin 4.3 g/dL (3.5-5.0); Albumin Globulin Ratio 1.4 (1.0-2.8); Alkaline Phosphatase 57 U/L (38-126); Aspartate Aminotransferase 27 IU/L (17-59); BUN Creatinine Ratio 14.3 (6-22); Bilirubin Total 0.9 mg/dL (0.2-1.3); Blood Urea Nitrogen 18 mg/dL (9-20); Calcium 9.4 mg/dL (8.4-10.2); Carbon Dioxide 24 mmol/L (22-32); Chloride 100 mmol/L (98-107); Cholesterol 310 mg/dL (140-199); Estimated Glomerular Filt Rate > 60 mL/min (>60); Glucose 119 mg/dL (80-110); HDL Cholesterol 59 mg/dL (40-60); HEMOLYSIS < 15 (0-50); LDL Cholesterol Calculated 216 mg/dL (<100); Potassium 4.7 mmol/L (3.4-5.1); Sodium 131 mmol/L (137-145); Total Protein 7.3 g/dL (6.3-8.2); Triglycerides 176 mg/dL (35-150)
[2023-12-14 08:44] LABS: Prostate Specific Antigen Scrn 0.846 ng/mL (0.1-4.0)
[2023-12-14 08:50] LABS: TSH w/ Reflex to FT4 3.25 uIU/mL (0.47-4.68)
== END ==
PROVIDERS: PCP Family Medicine; Referring Provider Physician Assistant; Visit Provider Physician Assistant
DX: R53.83 Other fatigue (principal); E03.9 Hypothyroidism, unspecified; Z12.5 Encounter for screening for malignant neoplasm of prostate
CPT/HCPCS: 36415; 80053; 80061; 84443; 85025; G0103

== ENCOUNTER → 2024-01-07 09:24 | Outpatient (CLI) | payer MEDICARE, OTHER, SELFPAY ==
--- NOTE | 2024-01-07 09:25 | DI.RAD.S_ITS ---
PROCEDURE: XR LUMBAR SPINE 2-3V INDICATIONS: hip pain TECHNIQUE: 3 views of the lumbar spine were acquired. COMPARISON: None. FINDINGS: Bones: 5 [id number] vertebrae are present. There is normal bony alignment. Loss of disc height and degenerative endplate changes are noted throughout lumbar spine most notably involving L4-5 level. No vertebral body compression fractures. No suspicious bony lesions. Soft tissues: Overlying bowel gas pattern is normal. No suspicious soft tissue calcifications. IMPRESSION: [id number] degenerative disc disease throughout lumbar spine most notably at L4-5 level. No acute compression fracture. Dictated by: Miguel Rice M.D. on 01/07/2024 at 10:26 Approved by: Miguel Rice M.D. on 01/07/2024 at 10:33
--- NOTE | 2024-01-07 09:25 | DI.RAD.S_ITS ---
PROCEDURE: XR HIP W PEL IF DONE RIGOBERTO MIN 4V INDICATIONS: hip pain TECHNIQUE: AP pelvis with lateral view(s) of the bilateral hip(s). COMPARISON: None. FINDINGS: Bones: No fractures or dislocations. [id number]-[id number] bilateral hip joint osteoarthritic changes are seen with superior joint space narrowing and subchondral sclerosis. No evidence of avascular necrosis of femoral head. Pelvic ring appears intact. No suspicious bony lesions. Degenerative disc disease in visualized lower lumbar spine is seen. Soft tissues: The visualized bowel gas pattern is normal. No suspicious soft tissue calcifications. IMPRESSION: Atsc-hz-[id number] bilateral hip joint osteoarthritis. No acute fracture or dislocation. No evidence of avascular necrosis. Dictated by: Miguel Rice M.D. on 01/07/2024 at 10:25 Approved by: Miguel Rice M.D. on 01/07/2024 at 10:26
== END ==
LOC: RAD 09:25
PROVIDERS: PCP Family Medicine; Referring Provider Family Medicine; Visit Provider Family Medicine
DX: M51.36 Other intervertebral disc degeneration, lumbar region (principal); M16.0 Bilateral primary osteoarthritis of hip; M54.50 Low back pain, unspecified; M25.559 Pain in unspecified hip; G89.29 Other chronic pain
CPT/HCPCS: 72100; 73522

== ENCOUNTER → 2024-03-20 13:42 | Outpatient (CLI) | payer MEDICARE, OTHER, SELFPAY ==
--- NOTE | 2024-03-20 13:43 | DI.MRI.S_ITS ---
PROCEDURE: MR LUMBAR SPINE WO CON INDICATIONS: lumbar back pain with ridculopathy on the right TECHNIQUE: Noncontrast sagittal T1 spin echo and T2 fast echo, sagittal STIR, and T2 fast spin echo through the lumbar spine. In cases with scoliosis, additional coronal T2 fast spin echo may be performed. COMPARISON: [facility], CR, XR LUMBAR SPINE 2-3V, 01/07/2024, 9:28. FINDINGS: Image quality: Excellent. Alignment and Curvature: Trace anterolisthesis of L2 on L3. Bone Marrow: Marrow is of normal overall signal. Moderate reactive endplate changes are present at L2-3, L3-4, moderate to severe L4-5. No acute vertebral body compression fractures. Spinal Cord: Conus medullaris terminates at the L1 level. Visualized cord demonstrates normal signal and size. Paraspinous Soft Tissues: No paravertebral masses. Discs: Multilevel moderate to severe disc desiccation most prominent L4-5. T12-L1: No disc bulge, spinal stenosis or foraminal narrowing. L1-L2: Minimal disc bulge without spinal stenosis or foraminal narrowing. L2-L3: Mild disc bulge with moderate spinal stenosis. Moderate left foraminal narrowing with facet and ligamentum flavum hypertrophy. L3-L4: Mild disc bulge with moderate spinal stenosis. Ldlr-[id number] left foraminal narrowing with facet and ligamentum flavum hypertrophy. L4-L5: Mild disc bulge including a right lateral/proximal foraminal component. Rdro-hn-ovhmpuyr spinal stenosis. Moderate right and mild left foraminal narrowing with facet and ligamentum flavum hypertrophy. L5-S1: Mild disc bulge without spinal stenosis. Minimal left foraminal narrowing with facet hypertrophy. IMPRESSION: Multilevel disc bulges. Multilevel spinal stenosis most severe at L2-3, L3-4 secondary to disc bulge with contributing effect of facet/ligamentum flavum arthropathy. Multilevel foraminal narrowing most severe at L4-5 secondary to facet/ligamentum flavum arthropathy. Dictated by: Carola Jones M.D. on 03/20/2024 at 16:51 Approved by: Carola Jones M.D. on 03/20/2024 at 16:59
== END ==
PROVIDERS: Family Provider Family Medicine; PCP Family Medicine; Referring Provider Family Medicine; Visit Provider Family Medicine
DX: M47.26 Other spondylosis with radiculopathy, lumbar region (principal); M51.16 Intervertebral disc disorders with radiculopathy, lumbar region; M51.17 Intervertebral disc disorders with radiculopathy, lumbosacral region; M48.061 Spinal stenosis, lumbar region without neurogenic claudication; M48.07 Spinal stenosis, lumbosacral region; M54.50 Low back pain, unspecified
CPT/HCPCS: 72148

== ENCOUNTER 2024-05-20 09:45 | Outpatient (RCR) | payer MEDICARE, OTHER, SELFPAY ==
--- NOTE | 2024-02-14 17:17 | PT.OIE ---
Current Diagnoses Other chronic pain (02/14/24) Pain in unspecified hip (02/14/24) Low back pain, unspecified (02/14/24) Past Medical History (Last Reviewed 01/23/23 @ 18:23 by David Nickerson DO) Acne (~1965) Aortic stenosis (~2000) Cataract (2003) Chicken pox (~1955) Coronary artery disease (~2000) Dengue fever (2007) Detached retina (2004) Hyperlipidemia Hypertension (2004) Measles (~1955) Mumps (~1955) Eilz's syndrome (2002) Past Surgical History (Last Reviewed 12/19/19 @ 07:27 by Isabella Reece DO) Anesthesia H/O detached retina repair (2004) History of cataract removal with insertion of prosthetic lens (2003) Visit Care Team Role Provider Type Lam Bearden MD Attending Provider Physician Family Provider Primary Care Provider Referring Provider Specialty: Family Practice Address: [address] [place] [address] Email: [email or web address] Physical Therapy Initial Evaluation PT-OP-A Visit Information Start: 02/14/24 08:14 Freq: Status: Active Protocol: Document 02/14/24 08:15 [facility] (Rec: 02/14/24 09:46 [facility] [id number]) Out-Patient Physical Therapy Visit Information Visit Information Visit Type Initial Evaluation Visit Start Time 08:15 Visit Stop Time 09:00 Visit Number 1 Evaluation Information Evaluation Date 02/14/24 PT-OP-B Current Condition Start: 02/14/24 08:14 Freq: Status: Active Protocol: Document 02/14/24 08:15 [facility] (Rec: 02/14/24 09:03 [facility] [id number]) Current Condition History of Current Condition Onset Date 3 years History of Current Condition 3 years ago had a episode where he couldn't walk due to pain in his right leg. He went to the ER and he was given a shot for pain relief but it did nothing for him. Then one day he had to crawl to the bathroom and once he got up from the toilet he could walk. Since that time his right leg on the top anterior quad is numb. He then started biking and he strained his right adductor and it has never gotten better . He notes the adductor wont relax. A few weeks ago he went and got a load of compost for his garden and after he finished the compost he sat down x 30 min afterwards his right ankle gave out and he couldn't walk. He also has a great amount of right calf tightness, if he tries to walk up a hill. He does have high blood pressure but he is on blood pressure medication. PT-OP-C Subjective Start: 02/14/24 08:14 Freq: Status: Active Protocol: Document 02/14/24 08:15 [facility] (Rec: 02/14/24 09:46 [facility] [id number]) Patient Questionnaires Lower Extremity Functional Scale LEFS Score 60 LEFS Impairment 20 to 39% Impaired (Score 48- 62) OP-PT Pain Assessment Pain Assessment Grid Paper Pain Assessment Grid Completed Yes Location right calf pain Pain Location Details right calf becomes very tight and painfull with walking [place] Intensity 6 Scale Used Numeric (0 - 10) Description Aching,Tightness Right Medial Thigh Pain Location Details adductor pain especially at insertion to the pubic bone ranges from 3-8 Intensity 8 Scale Used Numeric (0 - 10) Description Aching,Tender,Tightness,With Movement Description- Other with walking, or after cycling , difficult to relax adductors Frequency Intermittent PT-OP-F Manual Assessment Start: 02/14/24 08:14 Freq: Status: Active Protocol: Document 02/14/24 08:15 [facility] (Rec: 02/14/24 09:46 [facility] [id number]) Manual Assessments Soft Tissue Assessment Soft Tissue Mobility Assessment right sided calf tightness with decreased DF right foot right adductor tightness and tenderness especially at the proximal insertion Joint Mobility Assessment Joint Mobility Assessment right pubic upslip and right leg is shorter in supine decreased thoracic mobility and extension PT-OP-G Mobility & Gait Start: 02/14/24 08:14 Freq: Status: Active Protocol: Document 02/14/24 08:15 [facility] (Rec: 02/14/24 16:55 [facility] [id number]) OP Gait Assessment Gait Able to Maintain Weight Bearing Status Yes During Gait Comments Gait Comments Emmanuel walks with right LE in ER as compared to the left side. He says this is normal for him and he has always walked this way PT-OP-J Posture/Palpation/Skin Start: 02/14/24 08:14 Freq: Status: Active Protocol: Document 02/14/24 09:23 [facility] (Rec: 02/14/24 09:46 [facility] [id number]) Palpation Assessment Location right adductor Palpation Location tenderness to palpation at the pubic ramus attachment, Palpation Findings Soft Tissue Tightness,Spasm, Muscle Guarding Palpation Details muscle belly and proximal insertion tightness of the adductor right pubic bone Palpation Findings Tenderness Palpation Details right pubic bone is felt to be higher than the left and is tender PT-OP-K Range of Motion Start: 02/14/24 08:14 Freq: Status: Active Protocol: Document 02/14/24 09:23 [facility] (Rec: 02/14/24 09:46 [facility] [id number]) Lumbar Spine Range of Motion Lumbar Spine Active Testing Position Standing Flexion 50 Extension 10 Lateral Flexion Left 15 Lateral Flexion Right 15 ROM Limitations Soft Tissue Tightness Hip Goniometric Range of Motion Hip Left Hip ROM WFL Yes Right Hip ROM WFL Yes Ankle and Foot Goniometric Range of Motion Ankle and Foot Right Ankle/Foot ROM WFL No Testing Position Sitting Dorsiflexion with Knee Flexed 10 Dorsiflexion with Knee Extended 5 Comments right calf tightness limiting ankle dorsiflexion PT-OP-L Special Tests Start: 02/14/24 08:14 Freq: Status: Active Protocol: Document 02/14/24 09:23 [facility] (Rec: 02/14/24 09:46 [facility] [id number]) Special Tests Lumbar Spine Special Tests ASLR Test Results + Bilaterally Slump Test Results negative Straight Leg Raise Test Results negative PT-OP-M Strength Start: 02/14/24 08:14 Freq: Status: Active Protocol: Document 02/14/24 09:23 [facility] (Rec: 02/14/24 09:46 [facility] [id number]) Trunk Strength Trunk Manual Muscle Testing Flexion 3 Fair Core Stabilization poor transverse abdominal and pelvic floor recruitment, pt tends to bulge the abdominal muscle out verses pulling them in towards his spine for hip movement. PT-OP-Q Treatments Start: 02/14/24 08:14 Freq: Status: Active Protocol: Document 02/14/24 09:13 [facility] (Rec: 02/14/24 09:23 [facility] [id number]) Therapeutic Exercises Supine Exercises supine ball squeeze Reps/Minutes x 10 reps holding 5 seconds Supine TA and pelvic floor brace with march Supine Exercise Name needs cues to keep TA and pelvic floor engaged Side bilateral Reps/Minutes x 10 Comments Emmanuel did have some right sided adductor irritation with this Other Exercises quadruped TA brace Reps/Minutes hold 5-10 seconds x 10 reps Manual Therapy Treatment Manual Techniques MET for right pubic upslip Type MET right pubic upslip Body Position Supine Comments in shawn test position with right leg off plinth and left hip flexed to 90 degrees, manually resist right hip flexion and adduction while at the same time resist left hip extension x 5 reps and followed up with adductor squeeze with resistance Self-Care/Home Management Treatment Education Patient Education Home Exercise Program,Joint Protection,Pain Management Other Education Emmanuel was educated on the use of sports compression socks for his right calf tightness with walking and cycling He was given a HEP for SI joint stabilization/pubic bone stabilization PT-OP-T Assessment and Plan Start: 02/14/24 08:14 Freq: Status: Active Protocol: Document 02/14/24 08:15 [facility] (Rec: 02/14/24 09:46 [facility] [id number]) Physical Therapy Assessment Rehab Potential Rehabilitation Potential Excellent Evaluation Complexity Number of Personal Factors/Comorbidities 0 Number of Body Systems Impaired 1-2 Clinical Presentation at Evaluation Stable Impairments Impairments Activity Tolerance,Functional Activities,Functional Mobility ,Integument,Pain,Posture,ROM, Soft Tissue Mobility,Strength Goals 4 Impairment Decreased ankle ROM on the right side into DF Short Term Goal (STG) pt is educated on a home flexibility program for the calf musculature STG Duration 4 weeks [facility] Goal (LTG) Emmanuel presents with improved ankle ROM into DF on the right side by 5 degrees 3 Impairment right sided adductor spasm and tightness with pain to palpation over the pubic bone on the right and throughout the muscle belly Internal Grinder Goal (LTG) pt no longer presents with tenderness and spasm over the right adductor LTG Duration 8 weeks 2 Impairment Decreased core strength for both lumbar and SI joint stabilization Short Term Goal (STG) Emmanuel is educated on a home exercise program for core stabilization STG Duration 4 weeks Internal Grinder Goal (LTG) Emmanuel demonstrates improved stabilization with core recruitment and strength and ASLR test is negative 1 Impairment right sided adductor pain and right calf pain that worsens with walking especially up hill and biking Pain levels range from 3-8/10 for the right adductors and 6/10 for the right calf Internal Grinder Goal (LTG) Emmanuel reprots a overall reduction of pain to 2-3/10 and is able to increase his walking distance and resume biking without increased pain LTG Duration 8 weeks Assessment Summary Assessment Emmanuel is a 73 year old active male with chief complaint of right sided addcutor pain and tightness with activity. He describes his adductor as becoming tight and guarded with activity and it is difficult to relax it. He also reports right sided calf tightness and cramping with walking especially up hill. Emmanuel has a 3 year history of low back and right hip pain with intermittent symptoms but at this time it is primarily his adductor and calf tightness that is his chief complaint. He has had x -rays taken of both the spine and hip and mild-moderate degeneratvie changes at the spine specifically the L4-5. With exam today I did examine the calf and there is no redness or swelling but he was advised to seek consult if this does occur and he was educated on blood clots. He is very tight in his right calf as compared to the left and lacks DF ROM. I did also advise to use a compression sleeve with walking to help decrease pain. He is tender along the adductor musculature on the right specifically at the attachment to the pubic ramus. He is tender at the right pubic bone and it is slightly elevated as compared to the left side. Emmanuel is weak in his inner core muscle and has difficulty with transverse abdominal stabilization and facilitating his core. I did start today with a manual technique to correct the right pubic upslip followed by stabilization exercises. Emmanuel tolerated this well and is a good candidate for core stability exercises to help stabilize his spine and pelvis. Physical Therapy Plan Frequency and Duration Frequency of Treatment 2x/Week Duration of treatment (weeks) 8 Plan of Care Start Date 02/14/24 Plan of Care End Date 04/10/24 Therapeutic Interventions Therapeutic Interventions Home Exercise Program,Joint Mobilizations,Manual Therapy, Neuromuscular Re-education, Patient/Caregiver Education, Self-Care/Home Management,Soft Tissue Mobilization, Therapeutic Exercises Modalities Cold Pack/Ice Massage Next Visit Focus/Plan Next Note Type Treatment Note Next Visit Plan recheck leg length and pubic symphysis levels, review stabilization exercises and perform MET if needed again for the pubic upslip. MFR techniques for the right adductor.
--- NOTE | 2024-02-14 17:18 | PT.OPPOC ---
Physical, Occupational & Speech Therapy At [facility] Current Diagnoses Other chronic pain (02/14/24) Pain in unspecified hip (02/14/24) Low back pain, unspecified (02/14/24) Visit Care Team Role Provider Type Lam Bearden MD Attending Provider Physician Family Provider Primary Care Provider Referring Provider Specialty: Family Practice Address: [address] [place] [address], [address], [facility] Email: [email or web address] Plan Of Care PT-OP-T Assessment and Plan Start: 02/14/24 08:14 Freq: Status: Active Protocol: Document 02/14/24 08:15 [facility] (Rec: 02/14/24 09:46 [facility] [id number]) Physical Therapy Assessment Rehab Potential Rehabilitation Potential Excellent Evaluation Complexity Number of Personal Factors/Comorbidities 0 Number of Body Systems Impaired 1-2 Clinical Presentation at Evaluation Stable Impairments Impairments Activity Tolerance,Functional Activities,Functional Mobility ,Integument,Pain,Posture,ROM, Soft Tissue Mobility,Strength Goals 4 Impairment Decreased ankle ROM on the right side into DF Short Term Goal (STG) pt is educated on a home flexibility program for the calf musculature STG Duration 4 weeks Alf Goal (LTG) Emmanuel presents with improved ankle ROM into DF on the right side by 5 degrees 3 Impairment right sided adductor spasm and tightness with pain to palpation over the pubic bone on the right and throughout the muscle belly Serger Goal (LTG) pt no longer presents with tenderness and spasm over the right adductor LTG Duration 8 weeks 2 Impairment Decreased core strength for both lumbar and SI joint stabilization Short Term Goal (STG) Emmanuel is educated on a home exercise program for core stabilization STG Duration 4 weeks Alf Goal (LTG) Emmanuel demonstrates improved stabilization with core recruitment and strength and ASLR test is negative 1 Impairment right sided adductor pain and right calf pain that worsens with walking especially up hill and biking Pain levels range from 3-8/10 for the right adductors and 6/10 for the right calf Alf Goal (LTG) Emmanuel reports a overall reduction of pain to 2-3/10 and is able to increase his walking distance and resume biking without increased pain LTG Duration 8 weeks Assessment Summary Assessment Emmanuel is a 73 year old active male with chief complaint of right sided adductor pain and tightness with activity. He describes his adductor as becoming tight and guarded with activity and it is difficult to relax it. He also reports right sided calf tightness and cramping with walking especially up hill. Emmanuel has a 3 year history of low back and right hip pain with intermittent symptoms but at this time it is primarily his adductor and calf tightness that is his chief complaint. He has had x -rays taken of both the spine and hip and mild-moderate degenerative changes at the spine specifically the L4-5. With exam today I did examine the calf and there is no redness or swelling but he was advised to seek consult if this does occur and he was educated on blood clots. He is very tight in his right calf as compared to the left and lacks DF ROM. I did also advise to use a compression sleeve with walking to help decrease pain. He is tender along the adductor musculature on the right specifically at the attachment to the pubic ramus. He is tender at the right pubic bone and it is slightly elevated as compared to the left side. Emmanuel is weak in his inner core muscle and has difficulty with transverse abdominal stabilization and facilitating his core. I did start today with a manual technique to correct the right pubic upslip followed by stabilization exercises. Emmanuel tolerated this well and is a good candidate for core stability exercises to help stabilize his spine and pelvis. Physical Therapy Plan Frequency and Duration Frequency of Treatment 2x/Week Duration of treatment (weeks) 8 Plan of Care Start Date 02/14/24 Plan of Care End Date 04/10/24 Therapeutic Interventions Therapeutic Interventions Home Exercise Program,Joint Mobilizations,Manual Therapy, Neuromuscular Re-education, Patient/Caregiver Education, Self-Care/Home Management,Soft Tissue Mobilization, Therapeutic Exercises Modalities Cold Pack/Ice Massage Next Visit Focus/Plan Next Note Type Treatment Note Next Visit Plan recheck leg length and pubic symphysis levels, review stabilization exercises and perform MET if needed again for the pubic upslip. MFR techniques for the right adductor. Plan of Care Dates Plan of Care Start Date 02/14/24 Plan of Care End Date 04/10/24 Electronically Signed by: Sunshine Narvaez, PT 02/14/24 [id number] If you are in agreement with this Plan of Care, please return a signed and dated copy. I have reviewed this Plan of Care and certify that the skilled therapy services above are required to meet the patient?s needs. Physician Signature Date Printed Name and Credentials Clinical Instructor Signature Printed Name and Credentials
--- NOTE | 2024-02-19 12:12 | PT.OTN ---
Current Diagnoses Other chronic pain (02/19/24) Pain in unspecified hip (02/19/24) Low back pain, unspecified (02/19/24) Physical Therapy Treatment Note PT-OP-A Visit Information Start: 02/14/24 08:14 Freq: Status: Active Protocol: Document 02/19/24 08:10 AB (Rec: 02/19/24 12:12 AB [id number]) Out-Patient Physical Therapy Visit Information Visit Information Visit Type Treatment Note Visit Start Time 09:04 Visit Stop Time 09:49 Visit Number 2 Number of STARCH COOKER Visits 1 Evaluation Information Evaluation Date 02/14/24 PT-OP-B Current Condition Start: 02/14/24 08:14 Freq: Status: Active Protocol: Document 02/14/24 08:15 [facility] (Rec: 02/14/24 09:03 [facility] [id number]) Current Condition History of Current Condition Onset Date 3 years History of Current Condition 3 years ago had a episode where he couldn't walk due to pain in his right leg. He went to the ER and he was given a shot for pain relief but it did nothing for him. Then one day he had to crawl to the bathroom and once he got up from the toilet he could walk. Since that time his right leg on the top anterior quad is numb. He then started biking and he strained his right adductor and it has never gotten better . He notes the adductor wont relax. A few weeks ago he went and got a load of compost for his garden and after he finished the compost he sat down x 30 min afterwards his right ankle gave out and he couldn't walk. He also has a great amount of right calf tightness, if he tries to walk up a hill. He does have high blood pressure but he is on blood pressure medication. 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 Patient reports the pain at the groin has lessened, but he has not gotten back on the back and that is what aggravates it. PT-OP-F Manual Assessment Start: 02/14/24 08:14 Freq: Status: Active Protocol: Document 02/14/24 08:15 [facility] (Rec: 02/14/24 09:46 [facility] [id number]) Manual Assessments Soft Tissue Assessment Soft Tissue Mobility Assessment right sided calf tightness with decreased DF right foot right adductor tightness and tenderness especially at the proximal insertion Joint Mobility Assessment Joint Mobility Assessment right pubic upslip and right leg is shorter in supine decreased thoracic mobility and extension PT-OP-G Mobility & Gait Start: 02/14/24 08:14 Freq: Status: Active Protocol: Document 02/14/24 08:15 [facility] (Rec: 02/14/24 16:55 [facility] [id number]) OP Gait Assessment Gait Able to Maintain Weight Bearing Status Yes During Gait Comments Gait Comments Emmanuel walks with right LE in ER as compared to the left side. He says this is normal for him and he has always walked this way PT-OP-J Posture/Palpation/Skin Start: 02/14/24 08:14 Freq: Status: Active Protocol: Document 02/14/24 09:23 [facility] (Rec: 02/14/24 09:46 [facility] [id number]) Palpation Assessment Location right adductor Palpation Location tenderness to palpation at the pubic ramus attachment, Palpation Findings Soft Tissue Tightness,Spasm, Muscle Guarding Palpation Details muscle belly and proximal insertion tightness of the adductor right pubic bone Palpation Findings Tenderness Palpation Details right pubic bone is felt to be higher than the left and is tender PT-OP-K Range of Motion Start: 02/14/24 08:14 Freq: Status: Active Protocol: Document 02/14/24 09:23 [facility] (Rec: 02/14/24 09:46 [facility] [id number]) Lumbar Spine Range of Motion Lumbar Spine Active Testing Position Standing Flexion 50 Extension 10 Lateral Flexion Left 15 Lateral Flexion Right 15 ROM Limitations Soft Tissue Tightness Hip Goniometric Range of Motion Hip Left Hip ROM WFL Yes Right Hip ROM WFL Yes Ankle and Foot Goniometric Range of Motion Ankle and Foot Right Ankle/Foot ROM WFL No Testing Position Sitting Dorsiflexion with Knee Flexed 10 Dorsiflexion with Knee Extended 5 Comments right calf tightness limiting ankle dorsiflexion PT-OP-L Special Tests Start: 02/14/24 08:14 Freq: Status: Active Protocol: Document 02/14/24 09:23 [facility] (Rec: 02/14/24 09:46 [facility] [id number]) Special Tests Lumbar Spine Special Tests ASLR Test Results + Bilaterally Slump Test Results negative Straight Leg Raise Test Results negative PT-OP-M Strength Start: 02/14/24 08:14 Freq: Status: Active Protocol: Document 02/14/24 09:23 [facility] (Rec: 02/14/24 09:46 [facility] [id number]) Trunk Strength Trunk Manual Muscle Testing Flexion 3 Fair Core Stabilization poor transverse abdominal and pelvic floor recruitment, pt tends to bulge the abdominal muscle out verses pulling them in towards his spine for hip movement. PT-OP-Q Treatments Start: 02/14/24 08:14 Freq: Status: Active Protocol: Document 02/19/24 08:10 AB (Rec: 02/19/24 12:12 AB [id number]) Therapeutic Exercises Supine Exercises abdominal bracing with LE extension Supine Exercise Name verbal cues Side bilateral Reps/Minutes X10 bent knee fall out Side bilateral Reps/Minutes X10 Comments Verbal and tactile cues quadratus lumborum stretch Side bilateral Reps/Minutes X1 each LE 60 seconds Comments verbal cues buttlerfly/groin stretch Side bilateral Equipment Used 60 seconds X 2 piriformis stretch Supine Exercise Name bilateral figure 4 piriformis right LE Side bilateral Reps/Minutes 60 seconds X 1 each Standing Exercises Pallof press Side bilateral Resistance level 3 and level 4 X 10 each Reps/Minutes X10 X 2 each side Comments verbal and visual cues Manual Therapy Treatment Soft Tissue Mobilization back/hip Body Location quadratus, piriformis/glute, adductors right LE Mobilization Type Cross-Friction,Rolling Intensity/Depth Moderate Body Position Sidelying Manual Techniques MET for right pubic upslip Type MET right pubic upslip and pubic shot gun Body Position Supine Comments in shawn test position with right leg off plinth and left hip flexed to 90 degrees, manually resist right hip flexion and adduction while at the same time resist left hip extension x 5 reps and followed up with adductor squeeze with resistance, hip abd add in hooklying 6 sec X 5 PT-OP-T Assessment and Plan Start: 02/14/24 08:14 Freq: Status: Active Protocol: Document 02/19/24 08:10 AB (Rec: 05/28/24 12:12 AB [id number]) Physical Therapy Assessment Goals 4 Impairment Decreased ankle ROM on the right side into DF Short Term Goal (STG) pt is educated on a home flexibility program for the calf musculature STG Duration 4 weeks Assisted Goal (LTG) Emmanuel presents with improved ankle ROM into DF on the right side by 5 degrees 3 Impairment right sided adductor spasm and tightness with pain to palpation over the pubic bone on the right and throughout the muscle belly Assistant Plant Manager Goal (LTG) pt no longer presents with tenderness and spasm over the right adductor LTG Duration 8 weeks 2 Impairment Decreased core strength for both lumbar and SI joint stabilization Short Term Goal (STG) Emmanuel is educated on a home exercise program for core stabilization STG Duration 4 weeks Assisted Goal (LTG) Emmanuel demonstrates improved stabilization with core recruitment and strength and ASLR test is negative 1 Impairment right sided adductor pain and right calf pain that worsens with walking especially up hill and biking Pain levels range from 3-8/10 for the right adductors and 6/10 for the right calf Assistant Plant Manager Goal (LTG) Emmanuel reprots a overall reduction of pain to 2-3/10 and is able to increase his walking distance and resume biking without increased pain LTG Duration 8 weeks Assessment Summary Assessment Emmanuel reports right glute feels a little sore end of session. Physical Therapy Plan Frequency and Duration Frequency of Treatment 2x/Week Duration of treatment (weeks) 8 Plan of Care Start Date 02/14/24 Plan of Care End Date 04/10/24 Next Visit Focus/Plan Next Note Type Treatment Note Next Visit Plan possibly bent knee fall out with band, Pallof press seated on ball, assess squats, possibly progress to bug, walk outs with ball, patient reports he wants to return to the gym
--- NOTE | 2024-02-21 14:46 | PT.OTN ---
Current Diagnoses Other chronic pain (02/21/24) Pain in unspecified hip (02/21/24) Low back pain, unspecified (02/21/24) Physical Therapy Treatment Note PT-OP-A Visit Information Start: 02/14/24 08:14 Freq: Status: Active Protocol: Document 02/21/24 13:45 [facility] (Rec: 02/21/24 14:44 [facility] [id number]) Out-Patient Physical Therapy Visit Information Visit Information Visit Type Treatment Note Visit Start Time 13:45 Visit Stop Time 14:30 Visit Number 3 Number of PLASTIC DESIGN APPLIER Visits 0 PT-OP-B Current Condition Start: 02/14/24 08:14 Freq: Status: Active Protocol: Document 02/14/24 08:15 [facility] (Rec: 02/14/24 09:03 [facility] [id number]) Current Condition History of Current Condition Onset Date 3 years History of Current Condition 3 years ago had a episode where he couldn't walk due to pain in his right leg. He went to the ER and he was given a shot for pain relief but it did nothing for him. Then one day he had to crawl to the bathroom and once he got up from the toilet he could walk. Since that time his right leg on the top anterior quad is numb. He then started biking and he strained his right adductor and it has never gotten better . He notes the adductor wont relax. A few weeks ago he went and got a load of compost for his garden and after he finished the compost he sat down x 30 min afterwards his right ankle gave out and he couldn't walk. He also has a great amount of right calf tightness, if he tries to walk up a hill. He does have high blood pressure but he is on blood pressure medication. PT-OP-C Subjective Start: 02/14/24 08:14 Freq: Status: Active Protocol: Document 02/21/24 13:45 [facility] (Rec: 02/21/24 14:44 [facility] [id number]) OP-PT Subjective Patient Comments Patient Comments pt notes his adductor pain has been better but he has been building on his house and hasn 't done a lot of his exercises . His calf is still tight PT-OP-F Manual Assessment Start: 02/14/24 08:14 Freq: Status: Active Protocol: Document 02/14/24 08:15 [facility] (Rec: 02/14/24 09:46 [facility] [id number]) Manual Assessments Soft Tissue Assessment Soft Tissue Mobility Assessment right sided calf tightness with decreased DF right foot right adductor tightness and tenderness especially at the proximal insertion Joint Mobility Assessment Joint Mobility Assessment right pubic upslip and right leg is shorter in supine decreased thoracic mobility and extension PT-OP-G Mobility & Gait Start: 02/14/24 08:14 Freq: Status: Active Protocol: Document 02/14/24 08:15 [facility] (Rec: 02/14/24 16:55 [facility] [id number]) OP Gait Assessment Gait Able to Maintain Weight Bearing Status Yes During Gait Comments Gait Comments Emmanuel walks with right LE in ER as compared to the left side. He says this is normal for him and he has always walked this way PT-OP-J Posture/Palpation/Skin Start: 02/14/24 08:14 Freq: Status: Active Protocol: Document 02/14/24 09:23 [facility] (Rec: 02/14/24 09:46 [facility] [id number]) Palpation Assessment Location right adductor Palpation Location tenderness to palpation at the pubic ramus attachment, Palpation Findings Soft Tissue Tightness,Spasm, Muscle Guarding Palpation Details muscle belly and proximal insertion tightness of the adductor right pubic bone Palpation Findings Tenderness Palpation Details right pubic bone is felt to be higher than the left and is tender PT-OP-K Range of Motion Start: 02/14/24 08:14 Freq: Status: Active Protocol: Document 02/14/24 09:23 [facility] (Rec: 02/14/24 09:46 [facility] [id number]) Lumbar Spine Range of Motion Lumbar Spine Active Testing Position Standing Flexion 50 Extension 10 Lateral Flexion Left 15 Lateral Flexion Right 15 ROM Limitations Soft Tissue Tightness Hip Goniometric Range of Motion Hip Left Hip ROM WFL Yes Right Hip ROM WFL Yes Ankle and Foot Goniometric Range of Motion Ankle and Foot Right Ankle/Foot ROM WFL No Testing Position Sitting Dorsiflexion with Knee Flexed 10 Dorsiflexion with Knee Extended 5 Comments right calf tightness limiting ankle dorsiflexion PT-OP-L Special Tests Start: 02/14/24 08:14 Freq: Status: Active Protocol: Document 02/14/24 09:23 [facility] (Rec: 02/14/24 09:46 [facility] [id number]) Special Tests Lumbar Spine Special Tests ASLR Test Results + Bilaterally Slump Test Results negative Straight Leg Raise Test Results negative PT-OP-M Strength Start: 02/14/24 08:14 Freq: Status: Active Protocol: Document 02/14/24 09:23 [facility] (Rec: 02/14/24 09:46 [facility] [id number]) Trunk Strength Trunk Manual Muscle Testing Flexion 3 Fair Core Stabilization poor transverse abdominal and pelvic floor recruitment, pt tends to bulge the abdominal muscle out verses pulling them in towards his spine for hip movement. PT-OP-Q Treatments Start: 02/14/24 08:14 Freq: Status: Active Protocol: Document 02/21/24 13:45 [facility] (Rec: 02/21/24 14:44 [facility] [id number]) Therapeutic Exercises Supine Exercises supine curl up with TA activation Reps/Minutes x 10 Comments cues not to bulge through the abdominal wall TA with SLR Reps/Minutes x 10 reps Comments more challanging on left side today buttlerfly/groin stretch Side bilateral Equipment Used 60 seconds X 2 supine ball squeeze Reps/Minutes x 10 reps holding 5 seconds Supine TA and pelvic floor brace with march Reps/Minutes x 10 Comments no pain into the groin Manual Therapy Treatment Soft Tissue Mobilization MFR to the right calf Body Location right calf Mobilization Type Myofascial Release Comments worked in supine and prone on MFR and manual calf stretching . Roller was also used as a assist adductor MFR on the right side Mobilization Type Myofascial Release Intensity/Depth Moderate Body Position Supine PT-OP-T Assessment and Plan Start: 02/14/24 08:14 Freq: Status: Active Protocol: Document 02/21/24 13:45 [facility] (Rec: 02/21/24 14:44 [facility] [id number]) Physical Therapy Assessment Assessment Summary Assessment Emmanuel is doing better with improved symmetry of leg length and decreased adductor pain. I did try having him try a supine pelvic floor stretch hugging knees to chest then opening out to the side and this did cause a spasm in the right adductor today. I encouraged him to continue with stretches for home Physical Therapy Plan Frequency and Duration Frequency of Treatment 2x/Week Duration of treatment (weeks) 8 Plan of Care Start Date 02/14/24 Plan of Care End Date 04/10/24 Therapeutic Interventions Therapeutic Interventions Home Exercise Program,Joint Mobilizations,Manual Therapy, Neuromuscular Re-education, Patient/Caregiver Education, Self-Care/Home Management,Soft Tissue Mobilization, Therapeutic Exercises Modalities Cold Pack/Ice Massage Next Visit Focus/Plan Next Note Type Treatment Note Next Visit Plan review TA brace with curl up not letting Emmanuel bulge through with his rectus abdominals, reassess the calf and adductor tightness.
--- NOTE | 2024-02-26 09:05 | PT.OTN ---
Current Diagnoses Other chronic pain (02/26/24) Pain in unspecified hip (02/26/24) Low back pain, unspecified (02/26/24) Physical Therapy Treatment Note PT-OP-A Visit Information Start: 02/14/24 08:14 Freq: Status: Active Protocol: Document 02/26/24 08:07 AB (Rec: 02/26/24 09:05 AB [id number]) Out-Patient Physical Therapy Visit Information Visit Information Visit Type Treatment Note Visit Note Access Code [email or web address] Visit Start Time 08:16 Visit Stop Time 09:02 Visit Number 4 Number of YOUNG ADULT LIBRARIAN Visits 1 Evaluation Information Evaluation Date 02/14/24 PT-OP-B Current Condition Start: 02/14/24 08:14 Freq: Status: Active Protocol: Document 02/14/24 08:15 [facility] (Rec: 02/14/24 09:03 [facility] [id number]) Current Condition History of Current Condition Onset Date 3 years History of Current Condition 3 years ago had a episode where he couldn't walk due to pain in his right leg. He went to the ER and he was given a shot for pain relief but it did nothing for him. Then one day he had to crawl to the bathroom and once he got up from the toilet he could walk. Since that time his right leg on the top anterior quad is numb. He then started biking and he strained his right adductor and it has never gotten better . He notes the adductor wont relax. A few weeks ago he went and got a load of compost for his garden and after he finished the compost he sat down x 30 min afterwards his right ankle gave out and he couldn't walk. He also has a great amount of right calf tightness, if he tries to walk up a hill. He does have high blood pressure but he is on blood pressure medication. PT-OP-C Subjective Start: 02/14/24 08:14 Freq: Status: Active Protocol: Document 02/26/24 08:07 AB (Rec: 02/26/24 09:05 AB [id number]) OP-PT Subjective Patient Comments Patient Comments Patient reports he is doing good, has been busy with the porch, but was able to do all the exercises over the weekend . Patient reports he hasn't had any pain in the adductors. Patient reports planning bike tomorrow PT-OP-F Manual Assessment Start: 02/14/24 08:14 Freq: Status: Active Protocol: Document 02/14/24 08:15 [facility] (Rec: 02/14/24 09:46 [facility] [id number]) Manual Assessments Soft Tissue Assessment Soft Tissue Mobility Assessment right sided calf tightness with decreased DF right foot right adductor tightness and tenderness especially at the proximal insertion Joint Mobility Assessment Joint Mobility Assessment right pubic upslip and right leg is shorter in supine decreased thoracic mobility and extension PT-OP-G Mobility & Gait Start: 02/14/24 08:14 Freq: Status: Active Protocol: Document 02/14/24 08:15 [facility] (Rec: 02/14/24 16:55 [facility] [id number]) OP Gait Assessment Gait Able to Maintain Weight Bearing Status Yes During Gait Comments Gait Comments Emmanuel walks with right LE in ER as compared to the left side. He says this is normal for him and he has always walked this way PT-OP-J Posture/Palpation/Skin Start: 02/14/24 08:14 Freq: Status: Active Protocol: Document 02/14/24 09:23 [facility] (Rec: 02/14/24 09:46 [facility] [id number]) Palpation Assessment Location right adductor Palpation Location tenderness to palpation at the pubic ramus attachment, Palpation Findings Soft Tissue Tightness,Spasm, Muscle Guarding Palpation Details muscle belly and proximal insertion tightness of the adductor right pubic bone Palpation Findings Tenderness Palpation Details right pubic bone is felt to be higher than the left and is tender PT-OP-K Range of Motion Start: 02/14/24 08:14 Freq: Status: Active Protocol: Document 02/14/24 09:23 [facility] (Rec: 02/14/24 09:46 [facility] [id number]) Lumbar Spine Range of Motion Lumbar Spine Active Testing Position Standing Flexion 50 Extension 10 Lateral Flexion Left 15 Lateral Flexion Right 15 ROM Limitations Soft Tissue Tightness Hip Goniometric Range of Motion Hip Left Hip ROM WFL Yes Right Hip ROM WFL Yes Ankle and Foot Goniometric Range of Motion Ankle and Foot Right Ankle/Foot ROM WFL No Testing Position Sitting Dorsiflexion with Knee Flexed 10 Dorsiflexion with Knee Extended 5 Comments right calf tightness limiting ankle dorsiflexion PT-OP-L Special Tests Start: 02/14/24 08:14 Freq: Status: Active Protocol: Document 02/14/24 09:23 [facility] (Rec: 02/14/24 09:46 [facility] [id number]) Special Tests Lumbar Spine Special Tests ASLR Test Results + Bilaterally Slump Test Results negative Straight Leg Raise Test Results negative PT-OP-M Strength Start: 02/14/24 08:14 Freq: Status: Active Protocol: Document 02/14/24 09:23 [facility] (Rec: 02/14/24 09:46 [facility] [id number]) Trunk Strength Trunk Manual Muscle Testing Flexion 3 Fair Core Stabilization poor transverse abdominal and pelvic floor recruitment, pt tends to bulge the abdominal muscle out verses pulling them in towards his spine for hip movement. PT-OP-Q Treatments Start: 02/14/24 08:14 Freq: Status: Active Protocol: Document 02/26/24 08:07 AB (Rec: 02/26/24 09:05 AB [id number]) Cardio Equipment Bicycle (Upright) Duration (Minutes) 3 Resistance 7 Seat Position 7 Other 3.5 min reports burning/ gestures to right quad Therapeutic Exercises Supine Exercises bent knee fall out Side bilateral Reps/Minutes X10 Comments Verbal and pt ed use of self tactile cues quadratus lumborum stretch Side bilateral Reps/Minutes X1 each LE 60 seconds Comments verbal cues buttlerfly/groin stretch Side bilateral Equipment Used 60 seconds X 1 piriformis stretch Supine Exercise Name piriformis Side bilateral Reps/Minutes 60 seconds X 1 each supine ball squeeze Reps/Minutes x 10 reps holding 5 seconds Manual Therapy Treatment Soft Tissue Mobilization MFR to the right calf Body Location right calf Mobilization Type Myofascial Release Intensity/Depth Superficial Body Position Sitting adductor MFR on the right side Mobilization Type Myofascial Release Intensity/Depth Moderate Body Position Hooklying Comments and superficial back/hip Body Location quadratus, piriformis/glute Mobilization Type Cross-Friction,Rolling Intensity/Depth Moderate Body Position Sidelying Manual Techniques MET for right pubic upslip Type MET right pubic upslip and pubic shot gun Body Position Supine Reps/Duration 6 X6 second Comments in shawn test position with right leg off plinth and left hip flexed to 90 degrees, manually resist right hip flexion and adduction while at the same time resist left hip extension x 5 reps and followed up with adductor squeeze with resistance, hip abd add in hooklying 6 sec X 5 Self-Care/Home Management Treatment Education Other Education Patient ed to discontinue quadratus stretch this week. PT-OP-T Assessment and Plan Start: 02/14/24 08:14 Freq: Status: Active Protocol: Document 02/26/24 08:07 AB (Rec: 02/26/24 09:05 AB [id number]) Physical Therapy Assessment Goals 4 Impairment Decreased ankle ROM on the right side into DF Short Term Goal (STG) pt is educated on a home flexibility program for the calf musculature STG Duration 4 weeks Residential Goal (LTG) Emmanuel presents with improved ankle ROM into DF on the right side by 5 degrees 3 Impairment right sided adductor spasm and tightness with pain to palpation over the pubic bone on the right and throughout the muscle belly New Accounts Banking Representative Goal (LTG) pt no longer presents with tenderness and spasm over the right adductor LTG Duration 8 weeks 2 Impairment Decreased core strength for both lumbar and SI joint stabilization Short Term Goal (STG) Emmanuel is educated on a home exercise program for core stabilization STG Duration 4 weeks Residential Goal (LTG) Emmanuel demonstrates improved stabilization with core recruitment and strength and ASLR test is negative 1 Impairment right sided adductor pain and right calf pain that worsens with walking especially up hill and biking Pain levels range from 3-8/10 for the right adductors and 6/10 for the right calf Residential Goal (LTG) Emmanuel reprots a overall reduction of pain to 2-3/10 and is able to increase his walking distance and resume biking without increased pain LTG Duration 8 weeks Assessment Summary Assessment Patient reports having no adductor pain on bike but did have burning pain right quad, which resolved by end of session. Patient reports muscle soreness post right thigh (gestures to hamstring) end of session. Physical Therapy Plan Frequency and Duration Frequency of Treatment 2x/Week Duration of treatment (weeks) 8 Plan of Care Start Date 02/14/24 Plan of Care End Date 04/10/24 Next Visit Focus/Plan Next Note Type Treatment Note Next Visit Plan review TA brace with curl up not letting Emmanuel bulge through with his rectus abdominals, reassess the calf and adductor tightness.
--- NOTE | 2024-02-28 16:58 | PT.OTN ---
Current Diagnoses Other chronic pain (02/28/24) Pain in unspecified hip (02/28/24) Low back pain, unspecified (02/28/24) Physical Therapy Treatment Note PT-OP-A Visit Information Start: 02/14/24 08:14 Freq: Status: Active Protocol: Document 02/28/24 08:06 AB (Rec: 02/28/24 09:48 AB [id number]) Out-Patient Physical Therapy Visit Information Visit Information Visit Type Treatment Note Visit Note Access Code [email or web address] Visit Start Time 08:16 Visit Stop Time 09:03 Visit Number 5 Number of CUSTOMS DIRECTOR Visits 2 Evaluation Information Evaluation Date 02/14/24 PT-OP-B Current Condition Start: 02/14/24 08:14 Freq: Status: Active Protocol: Document 02/14/24 08:15 [facility] (Rec: 02/14/24 09:03 [facility] [id number]) Current Condition History of Current Condition Onset Date 3 years History of Current Condition 3 years ago had a episode where he couldn't walk due to pain in his right leg. He went to the ER and he was given a shot for pain relief but it did nothing for him. Then one day he had to crawl to the bathroom and once he got up from the toilet he could walk. Since that time his right leg on the top anterior quad is numb. He then started biking and he strained his right adductor and it has never gotten better . He notes the adductor wont relax. A few weeks ago he went and got a load of compost for his garden and after he finished the compost he sat down x 30 min afterwards his right ankle gave out and he couldn't walk. He also has a great amount of right calf tightness, if he tries to walk up a hill. He does have high blood pressure but he is on blood pressure medication. PT-OP-C Subjective Start: 02/14/24 08:14 Freq: Status: Active Protocol: Document 02/28/24 08:06 AB (Rec: 02/28/24 09:48 AB [id number]) OP-PT Subjective Patient Comments Patient Comments Patient reports he is sore, muscles back and quads, comments he isn't sure if it is the exercises and putting the joists up on his home progject. Patient reports he felt better after performing the exercises. Great toe 5 cm from wall with knee to wall prior to heel off floor PROM DF righ ankle PT-OP-F Manual Assessment Start: 02/14/24 08:14 Freq: Status: Active Protocol: Document 02/14/24 08:15 [facility] (Rec: 02/14/24 09:46 [facility] [id number]) Manual Assessments Soft Tissue Assessment Soft Tissue Mobility Assessment right sided calf tightness with decreased DF right foot right adductor tightness and tenderness especially at the proximal insertion Joint Mobility Assessment Joint Mobility Assessment right pubic upslip and right leg is shorter in supine decreased thoracic mobility and extension PT-OP-G Mobility & Gait Start: 02/14/24 08:14 Freq: Status: Active Protocol: Document 02/14/24 08:15 [facility] (Rec: 02/14/24 16:55 [facility] [id number]) OP Gait Assessment Gait Able to Maintain Weight Bearing Status Yes During Gait Comments Gait Comments Emmanuel walks with right LE in ER as compared to the left side. He says this is normal for him and he has always walked this way PT-OP-J Posture/Palpation/Skin Start: 02/14/24 08:14 Freq: Status: Active Protocol: Document 02/14/24 09:23 [facility] (Rec: 02/14/24 09:46 [facility] [id number]) Palpation Assessment Location right adductor Palpation Location tenderness to palpation at the pubic ramus attachment, Palpation Findings Soft Tissue Tightness,Spasm, Muscle Guarding Palpation Details muscle belly and proximal insertion tightness of the adductor right pubic bone Palpation Findings Tenderness Palpation Details right pubic bone is felt to be higher than the left and is tender PT-OP-K Range of Motion Start: 02/14/24 08:14 Freq: Status: Active Protocol: Document 02/14/24 09:23 [facility] (Rec: 02/14/24 09:46 [facility] [id number]) Lumbar Spine Range of Motion Lumbar Spine Active Testing Position Standing Flexion 50 Extension 10 Lateral Flexion Left 15 Lateral Flexion Right 15 ROM Limitations Soft Tissue Tightness Hip Goniometric Range of Motion Hip Left Hip ROM WFL Yes Right Hip ROM WFL Yes Ankle and Foot Goniometric Range of Motion Ankle and Foot Right Ankle/Foot ROM WFL No Testing Position Sitting Dorsiflexion with Knee Flexed 10 Dorsiflexion with Knee Extended 5 Comments right calf tightness limiting ankle dorsiflexion PT-OP-L Special Tests Start: 02/14/24 08:14 Freq: Status: Active Protocol: Document 02/14/24 09:23 [facility] (Rec: 02/14/24 09:46 [facility] [id number]) Special Tests Lumbar Spine Special Tests ASLR Test Results + Bilaterally Slump Test Results negative Straight Leg Raise Test Results negative PT-OP-M Strength Start: 02/14/24 08:14 Freq: Status: Active Protocol: Document 02/14/24 09:23 [facility] (Rec: 02/14/24 09:46 [facility] [id number]) Trunk Strength Trunk Manual Muscle Testing Flexion 3 Fair Core Stabilization poor transverse abdominal and pelvic floor recruitment, pt tends to bulge the abdominal muscle out verses pulling them in towards his spine for hip movement. PT-OP-Q Treatments Start: 02/14/24 08:14 Freq: Status: Active Protocol: Document 02/28/24 08:06 AB (Rec: 02/28/24 09:48 AB [id number]) Cardio Equipment Bicycle (Upright) Resistance 2,4,6 Seat Position 7 Therapeutic Exercises Supine Exercises modified Arnie stretch edge of bed Side right Reps/Minutes 60 seconds X 1 abdominal bracing with LE extension Supine Exercise Name verbal cues Side bilateral Reps/Minutes X10 Comments Good TA contraction, no bulging piriformis stretch Supine Exercise Name piriformis Side bilateral Reps/Minutes 60 seconds X 1 each Standing Exercises calf stretches Standing Exercise Name Gastroc and soleus Side right Reps/Minutes 60 sec X 2 each Manual Therapy Treatment Soft Tissue Mobilization MFR to the right calf Body Location right calf Mobilization Type Myofascial Release Intensity/Depth Superficial Body Position Sidelying adductor MFR on the right side Body Location also proximal hip flexor Mobilization Type Myofascial Release Intensity/Depth Moderate Body Position Hooklying Comments and superficial back/hip Body Location Lumbar parspinal nerve slacking Mobilization Type Sustained Pressure Intensity/Depth Moderate Body Position Sidelying PT-OP-T Assessment and Plan Start: 02/14/24 08:14 Freq: Status: Active Protocol: Document 02/28/24 08:06 AB (Rec: 02/28/24 09:48 AB [id number]) Physical Therapy Assessment Goals 4 Impairment Decreased ankle ROM on the right side into DF Short Term Goal (STG) pt is educated on a home flexibility program for the calf musculature STG Duration 4 weeks Nursing Home Goal (LTG) Emmanuel presents with improved ankle ROM into DF on the right side by 5 degrees 3 Impairment right sided adductor spasm and tightness with pain to palpation over the pubic bone on the right and throughout the muscle belly Nursing Home Goal (LTG) pt no longer presents with tenderness and spasm over the right adductor LTG Duration 8 weeks 2 Impairment Decreased core strength for both lumbar and SI joint stabilization Short Term Goal (STG) Emmanuel is educated on a home exercise program for core stabilization STG Duration 4 weeks Gauge Maker Apprentice Goal (LTG) Emmanuel demonstrates improved stabilization with core recruitment and strength and ASLR test is negative 1 Impairment right sided adductor pain and right calf pain that worsens with walking especially up hill and biking Pain levels range from 3-8/10 for the right adductors and 6/10 for the right calf Gauge Maker Apprentice Goal (LTG) Emmanuel reprots a overall reduction of pain to 2-3/10 and is able to increase his walking distance and resume biking without increased pain LTG Duration 8 weeks Assessment Summary Assessment Trial of bike post manual therapy and stretches this session, initiated on decreased resistance with patient reporting the quad feels warm vs burn Physical Therapy Plan Frequency and Duration Frequency of Treatment 2x/Week Duration of treatment (weeks) 8 Plan of Care Start Date 02/14/24 Plan of Care End Date 04/10/24 Next Visit Focus/Plan Next Note Type Treatment Note Next Visit Plan review TA brace with curl up not letting Emmanuel bulge through with his rectus abdominals, reassess the calf and adductor tightness.
--- NOTE | 2024-03-03 09:04 | PT.OTN ---
Current Diagnoses Other chronic pain (03/03/24) Pain in unspecified hip (03/03/24) Low back pain, unspecified (03/03/24) Physical Therapy Treatment Note PT-OP-A Visit Information Start: 02/14/24 08:14 Freq: Status: Active Protocol: Document 03/03/24 08:17 SP (Rec: 03/03/24 09:15 SP [id number]) Out-Patient Physical Therapy Visit Information Visit Information Visit Type Treatment Note Visit Start Time 08:17 Visit Stop Time 09:04 Visit Number 6 Number of FIREAR[employer] SALES ASSOCIATE Visits 3 Evaluation Information Evaluation Date 02/14/24 PT-OP-B Current Condition Start: 02/14/24 08:14 Freq: Status: Active Protocol: Document 02/14/24 08:15 [facility] (Rec: 02/14/24 09:03 [facility] [id number]) Current Condition History of Current Condition Onset Date 3 years History of Current Condition 3 years ago had a episode where he couldn't walk due to pain in his right leg. He went to the ER and he was given a shot for pain relief but it did nothing for him. Then one day he had to crawl to the bathroom and once he got up from the toilet he could walk. Since that time his right leg on the top anterior quad is numb. He then started biking and he strained his right adductor and it has never gotten better . He notes the adductor wont relax. A few weeks ago he went and got a load of compost for his garden and after he finished the compost he sat down x 30 min afterwards his right ankle gave out and he couldn't walk. He also has a great amount of right calf tightness, if he tries to walk up a hill. He does have high blood pressure but he is on blood pressure medication. PT-OP-C Subjective Start: 02/14/24 08:14 Freq: Status: Active Protocol: Document 03/03/24 08:17 SP (Rec: 03/03/24 09:15 SP [id number]) OP-PT Subjective Patient Comments Patient Comments Pt reports is pretty sore R HS , LB but thinks from project going up /down ladders putting roof over porch. He reports still has numbness distal quad superior patella. PT-OP-F Manual Assessment Start: 02/14/24 08:14 Freq: Status: Active Protocol: Document 02/14/24 08:15 [facility] (Rec: 02/14/24 09:46 [facility] [place] [id number]) Manual Assessments Soft Tissue Assessment Soft Tissue Mobility Assessment right sided calf tightness with decreased DF right foot right adductor tightness and tenderness especially at the proximal insertion Joint Mobility Assessment Joint Mobility Assessment right pubic upslip and right leg is shorter in supine decreased thoracic mobility and extension PT-OP-G Mobility & Gait Start: 02/14/24 08:14 Freq: Status: Active Protocol: Document 02/14/24 08:15 AM[facility] (Rec: 02/14/24 16:55 [facility] [place] [id number]) OP Gait Assessment Gait Able to Maintain Weight Bearing Status Yes During Gait Comments Gait Comments Emmanuel walks with right LE in ER as compared to the left side. He says this is normal for him and he has always walked this way PT-OP-J Posture/Palpation/Skin Start: 02/14/24 08:14 Freq: Status: Active Protocol: Document 02/14/24 09:23 [facility]H (Rec: 02/14/24 09:46 [facility] [place] [id number]) Palpation Assessment Location right adductor Palpation Location tenderness to palpation at the pubic ramus attachment, Palpation Findings Soft Tissue Tightness,Spasm, Muscle Guarding Palpation Details muscle belly and proximal insertion tightness of the adductor right pubic bone Palpation Findings Tenderness Palpation Details right pubic bone is felt to be higher than the left and is tender PT-OP-K Range of Motion Start: 02/14/24 08:14 Freq: Status: Active Protocol: Document 02/14/24 09:23 [facility] (Rec: 02/14/24 09:46 [facility] [place] [id number]) Lumbar Spine Range of Motion Lumbar Spine Active Testing Position Standing Flexion 50 Extension 10 Lateral Flexion Left 15 Lateral Flexion Right 15 ROM Limitations Soft Tissue Tightness Hip Goniometric Range of Motion Hip Left Hip ROM WFL Yes Right Hip ROM WFL Yes Ankle and Foot Goniometric Range of Motion Ankle and Foot Right Ankle/Foot ROM WFL No Testing Position Sitting Dorsiflexion with Knee Flexed 10 Dorsiflexion with Knee Extended 5 Comments right calf tightness limiting ankle dorsiflexion PT-OP-L Special Tests Start: 02/14/24 08:14 Freq: Status: Active Protocol: Document 02/14/24 09:23 AMH (Rec: 02/14/24 09:46 [facility] [id number]) Special Tests Lumbar Spine Special Tests ASLR Test Results + Bilaterally Slump Test Results negative Straight Leg Raise Test Results negative PT-OP-M Strength Start: 02/14/24 08:14 Freq: Status: Active Protocol: Document 02/14/24 09:23 AM[facility] (Rec: 02/14/24 09:46 [facility] [id number]) Trunk Strength Trunk Manual Muscle Testing Flexion 3 Fair Core Stabilization poor transverse abdominal and pelvic floor recruitment, pt tends to bulge the abdominal muscle out verses pulling them in towards his spine for hip movement. PT-OP-Q Treatments Start: 02/14/24 08:14 Freq: Status: Active Protocol: Document 03/03/24 08:17 SP (Rec: 03/03/24 09:15 SP [id number]) Therapeutic Exercises Supine Exercises isometric bridge Supine Exercise Name added to HEP: adduction isometric bridge hold Reps/Minutes 5 SH x10 Comments cued PPT TA, pnfree and challenging self MET Supine Exercise Name isometric hip flex & ext /c dowel Reps/Minutes 10 SH x5 reps Comments pnfree modified Arnie stretch edge of bed Side right Equipment Used /c strap at ankle Reps/Minutes 60 seconds X 1 Comments not effective positioning stretch abdominal bracing with LE extension Supine Exercise Name verbal cues Side bilateral Reps/Minutes X10 Comments Good TA contraction, draw in not bulging bent knee fall out Side bilateral Resistance AROM> TB #2 at thighs Reps/Minutes x5 reps, x12 reps Comments occ cues for TA draw in, slower eccentric control, improved ROM buttlerfly/groin stretch Side bilateral Reps/Minutes 60 seconds X 1 Comments good adductor stretch supine ball squeeze Reps/Minutes x 5 reps holding 5 seconds Comments pre bridge 6/10 Supine TA and pelvic floor brace with march Reps/Minutes x 10 Comments no pain into the groin Other Exercises 1/2 kneel hip flexor stretch Other Exercise Name trialed, pt prefers self version see comments Side right Equipment Used foot on chair, cushion under knee Reps/Minutes 60 SHx1 Comments good anterior thigh- pt stated like self enrico long sit stretch lean back quadruped TA brace Other Exercise Name 1. TA bracing 2. bird dog- added to HEP Side bilateral Reps/Minutes 1. 5 SH x10 reps 2. x10 each side Comments REported good TA draw in for bird dog slower pace & level pelvis PT-OP-T Assessment and Plan Start: 02/14/24 08:14 Freq: Status: Active Protocol: Document 03/03/24 08:17 SP (Rec: 03/03/24 09:15 SP [id number]) Physical Therapy Assessment Goals 4 Impairment Decreased ankle ROM on the right side into DF Short Term Goal (STG) pt is educated on a home flexibility program for the calf musculature STG Duration 4 weeks Shelter Goal (LTG) Emmanuel presents with improved ankle ROM into DF on the right side by 5 degrees 3 Impairment right sided adductor spasm and tightness with pain to palpation over the pubic bone on the right and throughout the muscle belly Diesel Service Apprentice Goal (LTG) pt no longer presents with tenderness and spasm over the right adductor LTG Duration 8 weeks 2 Impairment Decreased core strength for both lumbar and SI joint stabilization Short Term Goal (STG) Emmanuel is educated on a home exercise program for core stabilization STG Duration 4 weeks Diesel Service Apprentice Goal (LTG) Emmanuel demonstrates improved stabilization with core recruitment and strength and ASLR test is negative 1 Impairment right sided adductor pain and right calf pain that worsens with walking especially up hill and biking Pain levels range from 3-8/10 for the right adductors and 6/10 for the right calf Shelter Goal (LTG) Emmanuel reprots a overall reduction of pain to 2-3/10 and is able to increase his walking distance and resume biking without increased pain LTG Duration 8 weeks Assessment Summary Assessment Pt good feedback stretch and flexibility to R quad, adductor and calf review self carry over home application, provided HO. Occ cues for TA draw in during supine ther ex. Pt responded well to progression bird dog and standing triple extension glut firing and calf raise, improved elevation with reps and cues for TA to support up/ down ladder strength. Physical Therapy Plan Frequency and Duration Frequency of Treatment 2x/Week Duration of treatment (weeks) 8 Plan of Care Start Date 02/14/24 Plan of Care End Date 04/10/24 Therapeutic Interventions Therapeutic Interventions Home Exercise Program,Joint Mobilizations,Manual Therapy, Neuromuscular Re-education, Patient/Caregiver Education, Self-Care/Home Management,Soft Tissue Mobilization, Therapeutic Exercises Modalities Cold Pack/Ice Massage Next Visit Focus/Plan Next Note Type Treatment Note Next Visit Plan Review bird dog and triple extension and TA brace with curl up not letting Emmanuel bulge through with his rectus abdominals. Reassess the calf and adductor tightness.
--- NOTE | 2024-03-12 10:31 | PT.OTN ---
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 He went to the ER and he was given a shot for pain relief but it did nothing for him. Then one day he had to crawl to the bathroom and once he got up from the toilet he could walk. Since that time his right leg on the top anterior quad is numb. He then started biking and he strained his right adductor and it has never gotten better . He notes the adductor wont relax. A few weeks ago he went and got a load of compost for his garden and after he finished the compost he sat down x 30 min afterwards his right ankle gave out and he couldn't walk. He also has a great amount of right calf tightness, if he tries to walk up a hill. He does have high blood pressure but he is on blood pressure medication. PT-OP-C Subjective Start: 02/14/24 08:14 Freq: Status: Active Protocol: Document 03/12/24 09:53 SP (Rec: 03/12/24 10:41 SP [id number]) OP-PT Subjective Patient Comments Patient Comments Pt reports LB and down R glut and HS tightness. Finished building deck roof and now gardening pulling weeds so contributes to tightness. Hadn 't been doing HEP ex and stretching due to to tired. Is back to doing HEP, found bird dog tiring and work but no painful. When walks longer distances especially uneven surfaces legs really start hurting. He also can't ride bike due to causing anterior R thigh/leg pain. PT-OP-F Manual Assessment Start: 02/14/24 08:14 Freq: Status: Active Protocol: Document 02/14/24 08:15 [facility] (Rec: 02/14/24 09:46 [facility] [id number]) Manual Assessments Soft Tissue Assessment Soft Tissue Mobility Assessment right sided calf tightness with decreased DF right foot right adductor tightness and tenderness especially at the proximal insertion Joint Mobility Assessment Joint Mobility Assessment right pubic upslip and right leg is shorter in supine decreased thoracic mobility and extension PT-OP-G Mobility & Gait Start: 02/14/24 08:14 Freq: Status: Active Protocol: Document 02/14/24 08:15 [facility] (Rec: 02/14/24 16:55 [facility] [id number]) OP Gait Assessment Gait Able to Maintain Weight Bearing Status Yes During Gait Comments Gait Comments Emmanuel walks with right LE in ER as compared to the left side. He says this is normal for him and he has always walked this way PT-OP-J Posture/Palpation/Skin Start: 02/14/24 08:14 Freq: Status: Active Protocol: Document 02/14/24 09:23 [facility] (Rec: 02/14/24 09:46 [facility] [id number]) Palpation Assessment Location right adductor Palpation Location tenderness to palpation at the pubic ramus attachment, Palpation Findings Soft Tissue Tightness,Spasm, Muscle Guarding Palpation Details muscle belly and proximal insertion tightness of the adductor right pubic bone Palpation Findings Tenderness Palpation Details right pubic bone is felt to be higher than the left and is tender PT-OP-K Range of Motion Start: 02/14/24 08:14 Freq: Status: Active Protocol: Document 02/14/24 09:23 [facility] (Rec: 02/14/24 09:46 [facility] [id number]) Lumbar Spine Range of Motion Lumbar Spine Active Testing Position Standing Flexion 50 Extension 10 Lateral Flexion Left 15 Lateral Flexion Right 15 ROM Limitations Soft Tissue Tightness Hip Goniometric Range of Motion Hip Left Hip ROM WFL Yes Right Hip ROM WFL Yes Ankle and Foot Goniometric Range of Motion Ankle and Foot Right Ankle/Foot ROM WFL No Testing Position Sitting Dorsiflexion with Knee Flexed 10 Dorsiflexion with Knee Extended 5 Comments right calf tightness limiting ankle dorsiflexion PT-OP-L Special Tests Start: 02/14/24 08:14 Freq: Status: Active Protocol: Document 02/14/24 09:23 [facility] (Rec: 02/14/24 09:46 [facility] [id number]) Special Tests Lumbar Spine Special Tests ASLR Test Results + Bilaterally Slump Test Results negative Straight Leg Raise Test Results negative PT-OP-M Strength Start: 02/14/24 08:14 Freq: Status: Active Protocol: Document 02/14/24 09:23 [facility] (Rec: 02/14/24 09:46 [facility] [id number]) Trunk Strength Trunk Manual Muscle Testing Flexion 3 Fair Core Stabilization poor transverse abdominal and pelvic floor recruitment, pt tends to bulge the abdominal muscle out verses pulling them in towards his spine for hip movement. PT-OP-Q Treatments Start: 02/14/24 08:14 Freq: Status: Active Protocol: Document 03/12/24 09:53 SP (Rec: 03/12/24 10:41 SP [id number]) Therapeutic Exercises Supine Exercises isometric bridge Supine Exercise Name hip adduction /c isometric bridge hold Resistance HEP reviewed Equipment Used ball between knees Reps/Minutes 5 SH x10 Comments cued PPT TA as needed, pnfree reported modified Arnie stretch edge of bed Supine Exercise Name trialed- better stretch long sit pull leg back abdominal bracing with LE extension Supine Exercise Name TKE SLR- HEP may be able to DC next tx Side bilateral Reps/Minutes X10 Comments Good TA contraction, ab draw in not bulging bent knee fall out Supine Exercise Name in PT- not adding to HEP to easy Side bilateral Resistance AROM> TB #2 at thighs Reps/Minutes x5 reps, x12 reps Comments occ cues for TA draw in, slower eccentric control, improved ROM buttlerfly/groin stretch Supine Exercise Name HEP Side bilateral Reps/Minutes 60 seconds X 1 Comments good adductor stretch piriformis stretch Supine Exercise Name piriformis-HEP Side bilateral Resistance foot across opp knee, pull knee to opp shld Reps/Minutes 60 seconds X 1 each Comments good stretch with cuing proper set up Sitting Exercises adductor stretch Sitting Exercise Name reviewed self HEP Side bilateral Reps/Minutes 30 SH x2 Comments reaches forward- good stretch HS stretch Sitting Exercise Name trialed in PT Side bilateral Reps/Minutes 1 reps 60 sec after bird dog Comments HS tension improved Standing Exercises triple extension Standing Exercise Name REviewed HEP: plank on wall, SL heel raise (opp LE 90/90 flex front) Side bilateral Resistance SL Reps/Minutes 10 reps 2 SH Comments ed repeat on each side calf stretches Standing Exercise Name Gastroc and soleus- HEP Side bilateral Resistance R>L Equipment Used rail support bottom step Reps/Minutes 60 sec X 2 each Pallof press Standing Exercise Name HEP Side bilateral Resistance level 3 and level 4 X 10 each Reps/Minutes X10 X 2 each side Comments verbal and visual cues Other Exercises bird dog Other Exercise Name HEP Reps/Minutes x10 Comments cued slower pacing, level pelvis- good core leg tiring PT-OP-T Assessment and Plan Start: 02/14/24 08:14 Freq: Status: Active Protocol: Document 03/12/24 09:53 SP (Rec: 03/12/24 10:41 SP [id number]) Physical Therapy Assessment Goals 4 Impairment Decreased ankle ROM on the right side into DF Short Term Goal (STG) pt is educated on a home flexibility program for the calf musculature STG Duration 4 weeks Skilled Nursing Goal (LTG) Emmanuel presents with improved ankle ROM into DF on the right side by 5 degrees 3 Impairment right sided adductor spasm and tightness with pain to palpation over the pubic bone on the right and throughout the muscle belly Skilled Nursing Goal (LTG) pt no longer presents with tenderness and spasm over the right adductor LTG Duration 8 weeks 2 Impairment Decreased core strength for both lumbar and SI joint stabilization Short Term Goal (STG) Emmanuel is educated on a home exercise program for core stabilization STG Duration 4 weeks Java Application Engineer Goal (LTG) Emmanuel demonstrates improved stabilization with core recruitment and strength and ASLR test is negative 1 Impairment right sided adductor pain and right calf pain that worsens with walking especially up hill and biking Pain levels range from 3-8/10 for the right adductors and 6/10 for the right calf Java Application Engineer Goal (LTG) Emmanuel reprots a overall reduction of pain to 2-3/10 and is able to increase his walking distance and resume biking without increased pain LTG Duration 8 weeks Assessment Summary Assessment Tx focused on Initiated condense HEP for flexibility and strength that will perform and not take longer than 20- 30 min, manageable. Will bring all HOs next tx to assist finalize. Reports good stretch and increase ROM, good effort muscle tiring. Pt reports feels good after PT tx but still limited on length walking adn biking before legs start cause pain then need tostop, miller anterior L thigh continues. Will benefit and request condense gym program helps pain reduction legs and improve community mobility. Physical Therapy Plan Frequency and Duration Frequency of Treatment 2x/Week Duration of treatment (weeks) 8 Plan of Care Start Date 02/14/24 Plan of Care End Date 04/10/24 Therapeutic Interventions Therapeutic Interventions Home Exercise Program,Joint Mobilizations,Manual Therapy, Neuromuscular Re-education, Patient/Caregiver Education, Self-Care/Home Management,Soft Tissue Mobilization, Therapeutic Exercises Modalities Cold Pack/Ice Massage Next Visit Focus/Plan Next Note Type Treatment Note Next Visit Plan 5th visit next. Condense HEP for manageable .Review HEP bird dog and triple extension and TA brace with curl up not letting Emmanuel bulge through with his rectus abdominals. Reassess the calf and adductor tightness.
--- NOTE | 2024-03-13 10:30 | PT.OTN ---
Current Diagnoses Other chronic pain (03/13/24) Pain in unspecified hip (03/13/24) Low back pain, unspecified (03/13/24) Physical Therapy Treatment Note PT-OP-A Visit Information Start: 02/14/24 08:14 Freq: Status: Active Protocol: Document 03/13/24 08:16 [facility] (Rec: 03/13/24 09:03 [facility] [id number]) Out-Patient Physical Therapy Visit Information Visit Information Visit Type Treatment Note Visit Start Time 08:15 Visit Stop Time 09:00 Visit Number 8 PT-OP-B Current Condition Start: 02/14/24 08:14 Freq: Status: Active Protocol: Document 02/14/24 08:15 [facility] (Rec: 02/14/24 09:03 [facility] [id number]) Current Condition History of Current Condition Onset Date 3 years History of Current Condition 3 years ago had a episode where he couldn't walk due to pain in his right leg. He went to the ER and he was given a shot for pain relief but it did nothing for him. Then one day he had to crawl to the bathroom and once he got up from the toilet he could walk. Since that time his right leg on the top anterior quad is numb. He then started biking and he strained his right adductor and it has never gotten better . He notes the adductor wont relax. A few weeks ago he went and got a load of compost for his garden and after he finished the compost he sat down x 30 min afterwards his right ankle gave out and he couldn't walk. He also has a great amount of right calf tightness, if he tries to walk up a hill. He does have high blood pressure but he is on blood pressure medication. PT-OP-C Subjective Start: 02/14/24 08:14 Freq: Status: Active Protocol: Document 03/13/24 08:16 [facility] (Rec: 03/13/24 09:03 [facility] [id number]) OP-PT Subjective Patient Comments Patient Comments pt notes he is sore but not from his original problem. He has been working 8 hours a day up and down a ladder working on his porch. He notes his adductor seems much better and his pelvis hasnt popped. His right quad does burn when he tries to do his bike or when walking uphill Walking is better but the calf still feels really tight Patient Reported Progress Improving PT-OP-F Manual Assessment Start: 02/14/24 08:14 Freq: Status: Active Protocol: Document 02/14/24 08:15 [facility] (Rec: 02/14/24 09:46 [facility] [id number]) Manual Assessments Soft Tissue Assessment Soft Tissue Mobility Assessment right sided calf tightness with decreased DF right foot right adductor tightness and tenderness especially at the proximal insertion Joint Mobility Assessment Joint Mobility Assessment right pubic upslip and right leg is shorter in supine decreased thoracic mobility and extension PT-OP-G Mobility & Gait Start: 02/14/24 08:14 Freq: Status: Active Protocol: Document 02/14/24 08:15 [facility] (Rec: 02/14/24 16:55 [facility] [id number]) OP Gait Assessment Gait Able to Maintain Weight Bearing Status Yes During Gait Comments Gait Comments Emmanuel walks with right LE in ER as compared to the left side. He says this is normal for him and he has always walked this way PT-OP-J Posture/Palpation/Skin Start: 02/14/24 08:14 Freq: Status: Active Protocol: Document 02/14/24 09:23 [facility] (Rec: 02/14/24 09:46 [facility] [id number]) Palpation Assessment Location right adductor Palpation Location tenderness to palpation at the pubic ramus attachment, Palpation Findings Soft Tissue Tightness,Spasm, Muscle Guarding Palpation Details muscle belly and proximal insertion tightness of the adductor right pubic bone Palpation Findings Tenderness Palpation Details right pubic bone is felt to be higher than the left and is tender PT-OP-K Range of Motion Start: 02/14/24 08:14 Freq: Status: Active Protocol: Document 02/14/24 09:23 [facility] (Rec: 02/14/24 09:46 [facility] [id number]) Lumbar Spine Range of Motion Lumbar Spine Active Testing Position Standing Flexion 50 Extension 10 Lateral Flexion Left 15 Lateral Flexion Right 15 ROM Limitations Soft Tissue Tightness Hip Goniometric Range of Motion Hip Left Hip ROM WFL Yes Right Hip ROM WFL Yes Ankle and Foot Goniometric Range of Motion Ankle and Foot Right Ankle/Foot ROM WFL No Testing Position Sitting Dorsiflexion with Knee Flexed 10 Dorsiflexion with Knee Extended 5 Comments right calf tightness limiting ankle dorsiflexion PT-OP-L Special Tests Start: 02/14/24 08:14 Freq: Status: Active Protocol: Document 02/14/24 09:23 [facility] (Rec: 02/14/24 09:46 [facility] [id number]) Special Tests Lumbar Spine Special Tests ASLR Test Results + Bilaterally Slump Test Results negative Straight Leg Raise Test Results negative PT-OP-M Strength Start: 02/14/24 08:14 Freq: Status: Active Protocol: Document 02/14/24 09:23 [facility] (Rec: 02/14/24 09:46 [facility] [id number]) Trunk Strength Trunk Manual Muscle Testing Flexion 3 Fair Core Stabilization poor transverse abdominal and pelvic floor recruitment, pt tends to bulge the abdominal muscle out verses pulling them in towards his spine for hip movement. PT-OP-Q Treatments Start: 02/14/24 08:14 Freq: Status: Active Protocol: Document 03/13/24 08:16 [facility] (Rec: 03/13/24 09:03 [facility] [id number]) Cardio Equipment Treadmill Duration (Minutes) 5 Speed 1.7 Other gait assessment was performed while walking Therapeutic Exercises Other Exercises standing sidebeds Reps/Minutes x 10 reps bird dog Other Exercise Name HEP Reps/Minutes x10 Comments cued slower pacing, level pelvis- good core leg tiring quadruped TA brace Other Exercise Name 1. TA bracing 2. bird dog- added to HEP Side bilateral Reps/Minutes 1. 5 SH x10 reps 2. x10 each side Comments REported good TA draw in for bird dog slower pace & level pelvis Manual Therapy Treatment Soft Tissue Mobilization right quadratus lumborum Body Location right quadratus lumborum Mobilization Type Myofascial Release Intensity/Depth Moderate Body Position left sidelying Comments worked on releasing the right side of the QL as pt is leaning to the right with gait assessment and it is his right quad that then gets a nerve pain after a few min of walking Manual Techniques manual quad and hip stretch R Comments manual quad and hip stretch on the right side in left sidelying PT-OP-T Assessment and Plan Start: 02/14/24 08:14 Freq: Status: Active Protocol: Document 03/13/24 08:15 [facility] (Rec: 03/16/24 06:56 [facility] [id number]) Physical Therapy Assessment Goals 4 Impairment Decreased ankle ROM on the right side into DF Short Term Goal (STG) pt is educated on a home flexibility program for the calf musculature STG Duration 4 weeks Usp Goal (LTG) Emmanuel presents with improved ankle ROM into DF on the right side by 5 degrees 3 Impairment right sided adductor spasm and tightness with pain to palpation over the pubic bone on the right and throughout the muscle belly Usp Goal (LTG) pt no longer presents with tenderness and spasm over the right adductor LTG Duration 8 weeks 2 Impairment Decreased core strength for both lumbar and SI joint stabilization Short Term Goal (STG) Emmanuel is educated on a home exercise program for core stabilization STG Duration 4 weeks Usp Goal (LTG) Emmanuel demonstrates improved stabilization with core recruitment and strength and ASLR test is negative 1 Impairment right sided adductor pain and right calf pain that worsens with walking especially up hill and biking Pain levels range from 3-8/10 for the right adductors and 6/10 for the right calf Usp Goal (LTG) Emmanuel reprots a overall reduction of pain to 2-3/10 and is able to increase his walking distance and resume biking without increased pain LTG Duration 8 weeks Assessment Summary Assessment Emmanuel is making improvements with decreased adductor pain. He continues to experience the anterior quad burning pain with walking especially up hill and while on the bike. I did a gait assessment on the treadmill and right away with walking her leans to the right side. This starts with his neck and then his whole body follows. He notes this is because of his vision. We worked today on awareness of this, adding in streches for the right side of the body as well as manual therapy work to open up the quadratus lumborum on the right side. He will monitor if he is leaning to the right while on the stationary bike. He has one visit left in March Physical Therapy Plan Frequency and Duration Frequency of Treatment 2x/Week Duration of treatment (weeks) 8 Plan of Care Start Date 02/14/24 Plan of Care End Date 04/10/24 Therapeutic Interventions Therapeutic Interventions Home Exercise Program,Joint Mobilizations,Manual Therapy, Neuromuscular Re-education, Patient/Caregiver Education, Self-Care/Home Management,Soft Tissue Mobilization, Therapeutic Exercises Modalities Cold Pack/Ice Massage Next Visit Focus/Plan Next Note Type Treatment Note Next Visit Plan Review HEP, check in with symptoms into the right quad with walking and cycling
--- NOTE | 2024-03-26 12:52 | PT.OTN ---
Current Diagnoses Other chronic pain (03/26/24) Pain in unspecified hip (03/26/24) Low back pain, unspecified (03/26/24) Physical Therapy Treatment Note PT-OP-A Visit Information Start: 02/14/24 08:14 Freq: Status: Active Protocol: Document 03/26/24 08:15 [facility] (Rec: 03/26/24 09:04 [facility] [id number]) Out-Patient Physical Therapy Visit Information Visit Information Visit Type Treatment Note Visit Start Time 08:15 Visit Stop Time 09:00 Visit Number 9 PT-OP-B Current Condition Start: 02/14/24 08:14 Freq: Status: Active Protocol: Document 02/14/24 08:15 [facility] (Rec: 02/14/24 09:03 [facility] [id number]) Current Condition History of Current Condition Onset Date 3 years History of Current Condition 3 years ago had a episode where he couldn't walk due to pain in his right leg. He went to the ER and he was given a shot for pain relief but it did nothing for him. Then one day he had to crawl to the bathroom and once he got up from the toilet he could walk. Since that time his right leg on the top anterior quad is numb. He then started biking and he strained his right adductor and it has never gotten better . He notes the adductor wont relax. A few weeks ago he went and got a load of compost for his garden and after he finished the compost he sat down x 30 min afterwards his right ankle gave out and he couldn't walk. He also has a great amount of right calf tightness, if he tries to walk up a hill. He does have high blood pressure but he is on blood pressure medication. PT-OP-C Subjective Start: 02/14/24 08:14 Freq: Status: Active Protocol: Document 03/26/24 08:15 [facility] (Rec: 03/26/24 08:30 [facility] [id number]) OP-PT Subjective Patient Comments Patient Comments he notes he has been taking it easy since he finished his porch, he notes his piriformis really started aching and after stretching its gone away . Now he feels like his back is his problem. He know he has a tendency to slide off to the right side on his bike. He notes lately he hasn't had almost any pain in his right quad. He also hasn't had any calf pain recently PT-OP-F Manual Assessment Start: 02/14/24 08:14 Freq: Status: Active Protocol: Document 02/14/24 08:15 [facility] (Rec: 02/14/24 09:46 [facility] [id number]) Manual Assessments Soft Tissue Assessment Soft Tissue Mobility Assessment right sided calf tightness with decreased DF right foot right adductor tightness and tenderness especially at the proximal insertion Joint Mobility Assessment Joint Mobility Assessment right pubic upslip and right leg is shorter in supine decreased thoracic mobility and extension PT-OP-G Mobility & Gait Start: 02/14/24 08:14 Freq: Status: Active Protocol: Document 02/14/24 08:15 [facility] (Rec: 02/14/24 16:55 [facility] [id number]) OP Gait Assessment Gait Able to Maintain Weight Bearing Status Yes During Gait Comments Gait Comments Emmanuel walks with right LE in ER as compared to the left side. He says this is normal for him and he has always walked this way PT-OP-J Posture/Palpation/Skin Start: 02/14/24 08:14 Freq: Status: Active Protocol: Document 02/14/24 09:23 [facility] (Rec: 02/14/24 09:46 [facility] [id number]) Palpation Assessment Location right adductor Palpation Location tenderness to palpation at the pubic ramus attachment, Palpation Findings Soft Tissue Tightness,Spasm, Muscle Guarding Palpation Details muscle belly and proximal insertion tightness of the adductor right pubic bone Palpation Findings Tenderness Palpation Details right pubic bone is felt to be higher than the left and is tender PT-OP-K Range of Motion Start: 02/14/24 08:14 Freq: Status: Active Protocol: Document 02/14/24 09:23 [facility] (Rec: 02/14/24 09:46 [facility] [id number]) Lumbar Spine Range of Motion Lumbar Spine Active Testing Position Standing Flexion 50 Extension 10 Lateral Flexion Left 15 Lateral Flexion Right 15 ROM Limitations Soft Tissue Tightness Hip Goniometric Range of Motion Hip Left Hip ROM WFL Yes Right Hip ROM WFL Yes Ankle and Foot Goniometric Range of Motion Ankle and Foot Right Ankle/Foot ROM WFL No Testing Position Sitting Dorsiflexion with Knee Flexed 10 Dorsiflexion with Knee Extended 5 Comments right calf tightness limiting ankle dorsiflexion PT-OP-L Special Tests Start: 02/14/24 08:14 Freq: Status: Active Protocol: Document 02/14/24 09:23 [facility] (Rec: 02/14/24 09:46 [facility] [id number]) Special Tests Lumbar Spine Special Tests ASLR Test Results + Bilaterally Slump Test Results negative Straight Leg Raise Test Results negative PT-OP-M Strength Start: 02/14/24 08:14 Freq: Status: Active Protocol: Document 02/14/24 09:23 [facility] (Rec: 02/14/24 09:46 [facility] [id number]) Trunk Strength Trunk Manual Muscle Testing Flexion 3 Fair Core Stabilization poor transverse abdominal and pelvic floor recruitment, pt tends to bulge the abdominal muscle out verses pulling them in towards his spine for hip movement. PT-OP-Q Treatments Start: 02/14/24 08:14 Freq: Status: Active Protocol: Document 03/26/24 08:15 [facility] (Rec: 03/26/24 09:04 [facility] [id number]) Therapeutic Exercises Supine Exercises single knee to chest stretch Reps/Minutes 2 x 30 sec hold each side windshield wipers Reps/Minutes x 10 reps double knee to chest stretch Reps/Minutes x 30 sec piriformis stretch Supine Exercise Name piriformis-HEP Side bilateral Resistance foot across opp knee, pull knee to opp shld Reps/Minutes 60 seconds X 1 each Comments good stretch with cuing proper set up Other Exercises standing sidebeds Reps/Minutes x 10 reps bird dog Other Exercise Name HEP, needs to break it down and contract abs prior to each rep Reps/Minutes x10 Comments cued slower pacing, level pelvis- good core leg tiring Manual Therapy Treatment Soft Tissue Mobilization right quadratus lumborum Body Location right quadratus lumborum Mobilization Type Myofascial Release Intensity/Depth Moderate Body Position left sidelying Comments worked on releasing the right side of the QL as pt is leaning to the right with gait assessment and it is his right quad that then gets a nerve pain after a few min of walking PT-OP-T Assessment and Plan Start: 02/14/24 08:14 Freq: Status: Active Protocol: Document 03/26/24 12:48 [facility] (Rec: 03/26/24 12:51 [facility] [id number]) Physical Therapy Assessment Goals 4 Impairment Decreased ankle ROM on the right side into DF Short Term Goal (STG) pt is educated on a home flexibility program for the calf musculature STG Duration 4 weeks Pelt Inspector Goal (LTG) Emmanuel presents with improved ankle ROM into DF on the right side by 5 degrees 3 Impairment right sided adductor spasm and tightness with pain to palpation over the pubic bone on the right and throughout the muscle belly Pelt Inspector Goal (LTG) pt no longer presents with tenderness and spasm over the right adductor LTG Duration 8 weeks 2 Impairment Decreased core strength for both lumbar and SI joint stabilization Short Term Goal (STG) Emmanuel is educated on a home exercise program for core stabilization STG Duration 4 weeks Assisted Goal (LTG) Emmanuel demonstrates improved stabilization with core recruitment and strength and ASLR test is negative 1 Impairment right sided adductor pain and right calf pain that worsens with walking especially up hill and biking Pain levels range from 3-8/10 for the right adductors and 6/10 for the right calf Pelt Inspector Goal (LTG) Emmanuel reprots a overall reduction of pain to 2-3/10 and is able to increase his walking distance and resume biking without increased pain LTG Duration 8 weeks Assessment Summary Assessment radicular pain into the right calf and quad has decreased. Emmanuel needs cueing to keep core on and pelvis level for his bird dog as he is rotating his pelvis with this and he feels some back strain afterwards. I cued him to re- engage his core before each rep. He needs continued abdominal stabilization as well as I have been working on Quadratus lumborum release on the right side as he leans to the right with walking and cycling. Physical Therapy Plan Frequency and Duration Frequency of Treatment 2x/Week Duration of treatment (weeks) 8 Plan of Care Start Date 02/14/24 Plan of Care End Date 04/10/24 Therapeutic Interventions Therapeutic Interventions Home Exercise Program,Joint Mobilizations,Manual Therapy, Neuromuscular Re-education, Patient/Caregiver Education, Self-Care/Home Management,Soft Tissue Mobilization, Therapeutic Exercises Modalities Cold Pack/Ice Massage Next Visit Focus/Plan Next Note Type Progress Note Next Visit Plan watch pts alignment on both the bike and treadmill to check with right lateral lean continue with core stabilization
--- NOTE | 2024-04-10 16:54 | PT.OTN ---
Current Diagnoses Other chronic pain (04/10/24) Pain in unspecified hip (04/10/24) Low back pain, unspecified (04/10/24) Physical Therapy Treatment Note PT-OP-A Visit Information Start: 02/14/24 08:14 Freq: Status: Active Protocol: Document 04/10/24 16:40 [facility] (Rec: 04/10/24 16:52 [facility] [id number]) Out-Patient Physical Therapy Visit Information Visit Information Visit Type Treatment Note Visit Start Time 13:00 Visit Stop Time 13:45 Visit Number 10 PT-OP-B Current Condition Start: 02/14/24 08:14 Freq: Status: Active Protocol: Document 02/14/24 08:15 [facility] (Rec: 02/14/24 09:03 [facility] [id number]) Current Condition History of Current Condition Onset Date 3 years History of Current Condition 3 years ago had a episode where he couldn't walk due to pain in his right leg. He went to the ER and he was given a shot for pain relief but it did nothing for him. Then one day he had to crawl to the bathroom and once he got up from the toilet he could walk. Since that time his right leg on the top anterior quad is numb. He then started biking and he strained his right adductor and it has never gotten better . He notes the adductor wont relax. A few weeks ago he went and got a load of compost for his garden and after he finished the compost he sat down x 30 min afterwards his right ankle gave out and he couldn't walk. He also has a great amount of right calf tightness, if he tries to walk up a hill. He does have high blood pressure but he is on blood pressure medication. PT-OP-C Subjective Start: 02/14/24 08:14 Freq: Status: Active Protocol: Document 04/10/24 16:40 [facility] (Rec: 04/10/24 16:52 [facility] [id number]) OP-PT Subjective Patient Comments Patient Comments Emmanuel notes the anterior quad pain and calf pain has calmed down. He had traveled for a family emergency and noted his right hamstring was sore especially with lifting his 60# suitcase and then once home he slipped and his right leg went out straining his hamstring. PT-OP-F Manual Assessment Start: 02/14/24 08:14 Freq: Status: Active Protocol: Document 02/14/24 08:15 [facility] (Rec: 02/14/24 09:46 [facility] [id number]) Manual Assessments Soft Tissue Assessment Soft Tissue Mobility Assessment right sided calf tightness with decreased DF right foot right adductor tightness and tenderness especially at the proximal insertion Joint Mobility Assessment Joint Mobility Assessment right pubic upslip and right leg is shorter in supine decreased thoracic mobility and extension PT-OP-G Mobility & Gait Start: 02/14/24 08:14 Freq: Status: Active Protocol: Document 02/14/24 08:15 [facility] (Rec: 02/14/24 16:55 [facility] [id number]) OP Gait Assessment Gait Able to Maintain Weight Bearing Status Yes During Gait Comments Gait Comments Emmanuel walks with right LE in ER as compared to the left side. He says this is normal for him and he has always walked this way PT-OP-J Posture/Palpation/Skin Start: 02/14/24 08:14 Freq: Status: Active Protocol: Document 02/14/24 09:23 [facility] (Rec: 02/14/24 09:46 [facility] [id number]) Palpation Assessment Location right adductor Palpation Location tenderness to palpation at the pubic ramus attachment, Palpation Findings Soft Tissue Tightness,Spasm, Muscle Guarding Palpation Details muscle belly and proximal insertion tightness of the adductor right pubic bone Palpation Findings Tenderness Palpation Details right pubic bone is felt to be higher than the left and is tender PT-OP-K Range of Motion Start: 02/14/24 08:14 Freq: Status: Active Protocol: Document 02/14/24 09:23 [facility] (Rec: 02/14/24 09:46 [facility] [id number]) Lumbar Spine Range of Motion Lumbar Spine Active Testing Position Standing Flexion 50 Extension 10 Lateral Flexion Left 15 Lateral Flexion Right 15 ROM Limitations Soft Tissue Tightness Hip Goniometric Range of Motion Hip Left Hip ROM WFL Yes Right Hip ROM WFL Yes Ankle and Foot Goniometric Range of Motion Ankle and Foot Right Ankle/Foot ROM WFL No Testing Position Sitting Dorsiflexion with Knee Flexed 10 Dorsiflexion with Knee Extended 5 Comments right calf tightness limiting ankle dorsiflexion PT-OP-L Special Tests Start: 02/14/24 08:14 Freq: Status: Active Protocol: Document 02/14/24 09:23 [facility] (Rec: 02/14/24 09:46 [facility] [id number]) Special Tests Lumbar Spine Special Tests ASLR Test Results + Bilaterally Slump Test Results negative Straight Leg Raise Test Results negative PT-OP-M Strength Start: 02/14/24 08:14 Freq: Status: Active Protocol: Document 02/14/24 09:23 [facility] (Rec: 02/14/24 09:46 [facility] [id number]) Trunk Strength Trunk Manual Muscle Testing Flexion 3 Fair Core Stabilization poor transverse abdominal and pelvic floor recruitment, pt tends to bulge the abdominal muscle out verses pulling them in towards his spine for hip movement. PT-OP-Q Treatments Start: 02/14/24 08:14 Freq: Status: Active Protocol: Document 04/10/24 13:18 [facility] (Rec: 04/10/24 13:47 [facility] [id number]) Therapeutic Exercises Supine Exercises single knee to chest stretch Reps/Minutes 2 x 30 sec hold each side windshield wipers Reps/Minutes x 10 reps double knee to chest stretch Reps/Minutes x 30 sec Supine TA and pelvic floor brace with march Reps/Minutes x 10 Comments no pain into the groin Standing Exercises dynamic hamstring stretching Reps/Minutes x 10 Comments from a squat position with forearms resting on legs modified down dog using the plinth Reps/Minutes x 10 reps holding 10-20 seconds Other Exercises standing sidebeds Reps/Minutes x 10 reps bird dog Other Exercise Name HEP, needs to break it down and contract abs prior to each rep Reps/Minutes x10 Comments cued slower pacing, level pelvis- good core leg tiring 1/2 kneel hip flexor stretch Other Exercise Name trialed, pt prefers self version see comments Side right Equipment Used foot on chair, cushion under knee Reps/Minutes 60 SHx1 Comments good anterior thigh- pt stated like self enrico long sit stretch lean back quadruped TA brace Other Exercise Name 1. TA bracing 2. bird dog- added to HEP Side bilateral Reps/Minutes 1. 5 SH x10 reps 2. x10 each side Comments REported good TA draw in for bird dog slower pace & level pelvis PT-OP-T Assessment and Plan Start: 02/14/24 08:14 Freq: Status: Active Protocol: Document 04/10/24 16:40 [facility] (Rec: 04/10/24 16:52 [facility] [id number]) Physical Therapy Assessment Goals 4 Impairment Decreased ankle ROM on the right side into DF Short Term Goal (STG) pt is educated on a home flexibility program for the calf musculature GOAL MET STG Duration 4 weeks Mcfp Goal (LTG) Emmanuel presents with improved ankle ROM into DF on the right side by 5 degrees GOAL MET 3 Impairment right sided adductor spasm and tightness with pain to palpation over the pubic bone on the right and throughout the muscle belly [employer] Goal (LTG) pt no longer presents with tenderness and spasm over the right adductor GOAL MET LTG Duration 8 weeks 2 Impairment Decreased core strength for both lumbar and SI joint stabilization Short Term Goal (STG) Emmanuel is educated on a home exercise program for core stabilization good progress STG Duration 4 weeks [employer] Consultant Goal (LTG) Emmanuel demonstrates improved stabilization with core recruitment and strength and ASLR test is negative Goal not yet met 1 Impairment right sided adductor pain and right calf pain that worsens with walking especially up hill and biking Pain levels range from 3-8/10 for the right adductors and 6/10 for the right calf Mcfp Goal (LTG) Emmanuel reprots a overall reduction of pain to 2-3/10 and is able to increase his walking distance and resume biking without increased pain good progress LTG Duration 8 weeks Assessment Summary Assessment Emmanuel is no longer experiencing the right adductor pain and his radicular pain into his quad and calf have decreased. He is feeling tension in his low back. He has been able to ride his bike x 20 min. He reports slipping last week pulling his right hamstring. I assessed Emmanuel's right hamstring today and he has no pain with MMT, he is able to gently go into a stretch. I did show him a dynamic hamstring stretch from a squat position and he tolerated this well. He is still needing cues for abdominal stabilization as he tends to bulge through the abdominal wall. He would benefit from continued PT Physical Therapy Plan Frequency and Duration Frequency of Treatment 2x/Week Duration of treatment (weeks) 8 Plan of Care Start Date 04/10/24 Plan of Care End Date 06/05/24 Therapeutic Interventions Therapeutic Interventions Home Exercise Program,Joint Mobilizations,Manual Therapy, Neuromuscular Re-education, Patient/Caregiver Education, Self-Care/Home Management,Soft Tissue Mobilization, Therapeutic Exercises Modalities Cold Pack/Ice Massage Next Visit Focus/Plan Next Note Type Treatment Note Next Visit Plan watch pts alignment on both the bike and treadmill to check with right lateral lean continue with core stabilization
--- NOTE | 2024-04-17 12:09 | PT.OPPN ---
Current Diagnoses Other chronic pain (04/10/24) Pain in unspecified hip (04/10/24) Low back pain, unspecified (04/10/24) Physical Therapy Progress Note PT-OP-A Visit Information Start: 02/14/24 08:14 Freq: Status: Active Protocol: Document 04/10/24 16:40 [facility] (Rec: 04/10/24 16:52 [facility] [id number]) Out-Patient Physical Therapy Visit Information Visit Information Visit Type Progress Note Visit Start Time 13:00 Visit Stop Time 13:45 Visit Number 10 PT-OP-B Current Condition Start: 02/14/24 08:14 Freq: Status: Active Protocol: Document 02/14/24 08:15 [facility] (Rec: 02/14/24 09:03 [facility] [id number]) Current Condition History of Current Condition Onset Date 3 years History of Current Condition 3 years ago had a episode where he couldn't walk due to pain in his right leg. He went to the ER and he was given a shot for pain relief but it did nothing for him. Then one day he had to crawl to the bathroom and once he got up from the toilet he could walk. Since that time his right leg on the top anterior quad is numb. He then started biking and he strained his right adductor and it has never gotten better . He notes the adductor wont relax. A few weeks ago he went and got a load of compost for his garden and after he finished the compost he sat down x 30 min afterwards his right ankle gave out and he couldn't walk. He also has a great amount of right calf tightness, if he tries to walk up a hill. He does have high blood pressure but he is on blood pressure medication. PT-OP-C Subjective Start: 02/14/24 08:14 Freq: Status: Active Protocol: Document 04/10/24 16:40 [facility] (Rec: 04/10/24 16:52 [facility] [id number]) OP-PT Subjective Patient Comments Patient Comments Emmanuel notes the anterior quad pain and calf pain has calmed down. He had traveled for a family emergency and noted his right hamstring was sore especially with lifting his 60# suitcase and then once home he slipped and his right leg went out straining his hamstring. PT-OP-F Manual Assessment Start: 02/14/24 08:14 Freq: Status: Active Protocol: Document 02/14/24 08:15 [facility] (Rec: 02/14/24 09:46 [facility] [id number]) Manual Assessments Soft Tissue Assessment Soft Tissue Mobility Assessment right sided calf tightness with decreased DF right foot right adductor tightness and tenderness especially at the proximal insertion Joint Mobility Assessment Joint Mobility Assessment right pubic upslip and right leg is shorter in supine decreased thoracic mobility and extension PT-OP-G Mobility & Gait Start: 02/14/24 08:14 Freq: Status: Active Protocol: Document 02/14/24 08:15 [facility] (Rec: 02/14/24 16:55 [facility] [id number]) OP Gait Assessment Gait Able to Maintain Weight Bearing Status Yes During Gait Comments Gait Comments Emmanuel walks with right LE in ER as compared to the left side. He says this is normal for him and he has always walked this way PT-OP-J Posture/Palpation/Skin Start: 02/14/24 08:14 Freq: Status: Active Protocol: Document 02/14/24 09:23 [facility] (Rec: 02/14/24 09:46 [facility] [id number]) Palpation Assessment Location right adductor Palpation Location tenderness to palpation at the pubic ramus attachment, Palpation Findings Soft Tissue Tightness,Spasm, Muscle Guarding Palpation Details muscle belly and proximal insertion tightness of the adductor right pubic bone Palpation Findings Tenderness Palpation Details right pubic bone is felt to be higher than the left and is tender PT-OP-K Range of Motion Start: 02/14/24 08:14 Freq: Status: Active Protocol: Document 02/14/24 09:23 [facility] (Rec: 02/14/24 09:46 [facility] [id number]) Lumbar Spine Range of Motion Lumbar Spine Active Testing Position Standing Flexion 50 Extension 10 Lateral Flexion Left 15 Lateral Flexion Right 15 ROM Limitations Soft Tissue Tightness Hip Goniometric Range of Motion Hip Measured in Degrees Left Hip ROM WFL Yes Right Hip ROM WFL Yes Ankle and Foot Goniometric Range of Motion Ankle and Foot Measured in Degrees Right Ankle/Foot ROM WFL No Testing Position Sitting Dorsiflexion with Knee Flexed 10 Dorsiflexion with Knee Extended 5 Comments right calf tightness limiting ankle dorsiflexion PT-OP-L Special Tests Start: 02/14/24 08:14 Freq: Status: Active Protocol: Document 02/14/24 09:23 [facility] (Rec: 02/14/24 09:46 [facility] [id number]) Special Tests Lumbar Spine Special Tests ASLR Test Results + Bilaterally Slump Test Results negative Straight Leg Raise Test Results negative PT-OP-M Strength Start: 02/14/24 08:14 Freq: Status: Active Protocol: Document 02/14/24 09:23 [facility] (Rec: 02/14/24 09:46 [facility] [id number]) Trunk Strength Trunk Manual Muscle Testing Flexion 3 Fair Core Stabilization poor transverse abdominal and pelvic floor recruitment, pt tends to bulge the abdominal muscle out verses pulling them in towards his spine for hip movement. PT-OP-T Assessment and Plan Start: 02/14/24 08:14 Freq: Status: Active Protocol: Document 04/10/24 16:40 [facility] (Rec: 04/10/24 16:52 [facility] [id number]) Physical Therapy Assessment Goals 4 Impairment Decreased ankle ROM on the right side into DF Short Term Goal (STG) pt is educated on a home flexibility program for the calf musculature GOAL MET STG Duration 4 weeks Director Corporate Sales Goal (LTG) Emmanuel presents with improved ankle ROM into DF on the right side by 5 degrees GOAL MET 3 Impairment right sided adductor spasm and tightness with pain to palpation over the pubic bone on the right and throughout the muscle belly [facility] Goal (LTG) pt no longer presents with tenderness and spasm over the right adductor GOAL MET LTG Duration 8 weeks 2 Impairment Decreased core strength for both lumbar and SI joint stabilization Short Term Goal (STG) Emmanuel is educated on a home exercise program for core stabilization good progress STG Duration 4 weeks [facility] Goal (LTG) Emmanuel demonstrates improved stabilization with core recruitment and strength and ASLR test is negative Goal not yet met 1 Impairment right sided adductor pain and right calf pain that worsens with walking especially up hill and biking Pain levels range from 3-8/10 for the right adductors and 6/10 for the right calf Director Corporate Sales Goal (LTG) Emmanuel reprots a overall reduction of pain to 2-3/10 and is able to increase his walking distance and resume biking without increased pain good progress LTG Duration 8 weeks Assessment Summary Assessment Emmanuel is no longer experiencing the right adductor pain and his radicular pain into his quad and calf have decreased. He is feeling tension in his low back. He has been able to ride his bike x 20 min. He reports slipping last week pulling his right hamstring. I assessed Emmanuel's right hamstring today and he has no pain with MMT, he is able to gently go into a stretch. I did show him a dynamic hamstring stretch from a squat position and he tolerated this well. He is still needing cues for abdominal stabilization as he tends to bulge through the abdominal wall. He would benefit from continued PT Physical Therapy Plan Frequency and Duration Frequency of Treatment 2x/Week Duration of treatment (weeks) 8 Plan of Care Start Date 04/10/24 Plan of Care End Date 06/05/24 Therapeutic Interventions Therapeutic Interventions Home Exercise Program,Joint Mobilizations,Manual Therapy, Neuromuscular Re-education, Patient/Caregiver Education, Self-Care/Home Management,Soft Tissue Mobilization, Therapeutic Exercises Modalities Cold Pack/Ice Massage Next Visit Focus/Plan Next Note Type Treatment Note Next Visit Plan watch pts alignment on both the bike and treadmill to check with right lateral lean continue with core stabilization
--- NOTE | 2024-04-17 12:10 | PT.OPPOC ---
Physical, Occupational & Speech Therapy At [facility] Current Diagnoses Other chronic pain (04/10/24) Pain in unspecified hip (04/10/24) Low back pain, unspecified (04/10/24) Visit Care Team Role Provider Type Lam Bearden MD Attending Provider Physician Family Provider Primary Care Provider Referring Provider Specialty: Family Practice Address: [address] [place] [address], [address], [facility] Email: [email or web address] Plan Of Care PT-OP-B Current Condition Start: 02/14/24 08:14 Freq: Status: Active Protocol: Document 02/14/24 08:15 ON LICENSE OF [facility] (Rec: 02/14/24 09:03 ON LICENSE OF [facility] [id number]) Current Condition History of Current Condition Onset Date 3 years History of Current Condition 3 years ago had a episode where he couldn't walk due to pain in his right leg. He went to the ER and he was given a shot for pain relief but it did nothing for him. Then one day he had to crawl to the bathroom and once he got up from the toilet he could walk. Since that time his right leg on the top anterior quad is numb. He then started biking and he strained his right adductor and it has never gotten better . He notes the adductor wont relax. A few weeks ago he went and got a load of compost for his garden and after he finished the compost he sat down x 30 min afterwards his right ankle gave out and he couldn't walk. He also has a great amount of right calf tightness, if he tries to walk up a hill. He does have high blood pressure but he is on blood pressure medication. PT-OP-T Assessment and Plan Start: 02/14/24 08:14 Freq: Status: Active Protocol: Document 04/10/24 16:40 ON LICENSE OF [facility] (Rec: 04/10/24 16:52 ON LICENSE OF [facility] [id number]) Physical Therapy Assessment Goals 4 Impairment Decreased ankle ROM on the right side into DF Short Term Goal (STG) pt is educated on a home flexibility program for the calf musculature GOAL MET STG Duration 4 weeks Water Pollution Scientist Goal (LTG) Emmanuel presents with improved ankle ROM into DF on the right side by 5 degrees GOAL MET 3 Impairment right sided adductor spasm and tightness with pain to palpation over the pubic bone on the right and throughout the muscle belly Water Pollution Scientist Goal (LTG) pt no longer presents with tenderness and spasm over the right adductor GOAL MET LTG Duration 8 weeks 2 Impairment Decreased core strength for both lumbar and SI joint stabilization Short Term Goal (STG) Emmanuel is educated on a home exercise program for core stabilization good progress STG Duration 4 weeks [facility] Goal (LTG) Emmanuel demonstrates improved stabilization with core recruitment and strength and ASLR test is negative Goal not yet met 1 Impairment right sided adductor pain and right calf pain that worsens with walking especially up hill and biking Pain levels range from 3-8/10 for the right adductors and 6/10 for the right calf [facility] Goal (LTG) Emmanuel reports a overall reduction of pain to 2-3/10 and is able to increase his walking distance and resume biking without increased pain good progress LTG Duration 8 weeks Assessment Summary Assessment Emmanuel is no longer experiencing the right adductor pain and his radicular pain into his quad and calf have decreased. He is feeling tension in his low back. He has been able to ride his bike x 20 min. He reports slipping last week pulling his right hamstring. I assessed Emmanuel's right hamstring today and he has no pain with MMT, he is able to gently go into a stretch. I did show him a dynamic hamstring stretch from a squat position and he tolerated this well. He is still needing cues for abdominal stabilization as he tends to bulge through the abdominal wall. He would benefit from continued PT Physical Therapy Plan Frequency and Duration Frequency of Treatment 2x/Week Duration of treatment (weeks) 8 Plan of Care Start Date 04/10/24 Plan of Care End Date 06/05/24 Therapeutic Interventions Therapeutic Interventions Home Exercise Program,Joint Mobilizations,Manual Therapy, Neuromuscular Re-education, Patient/Caregiver Education, Self-Care/Home Management,Soft Tissue Mobilization, Therapeutic Exercises Modalities Cold Pack/Ice Massage Next Visit Focus/Plan Next Note Type Treatment Note Next Visit Plan watch pts alignment on both the bike and treadmill to check with right lateral lean continue with core stabilization Plan of Care Dates Plan of Care Start Date 04/10/24 Plan of Care End Date 06/05/24 Electronically Signed by: Sunshine Narvaez, PT 04/17/24 7420 If you are in agreement with this Plan of Care, please return a signed and dated copy. I have reviewed this Plan of Care and certify that the skilled therapy services above are required to meet the patient?s needs. Physician Signature Date Printed Name and Credentials Clinical Instructor Signature Printed Name and Credentials
--- NOTE | 2024-04-17 16:20 | PT.OTN ---
Current Diagnoses Other chronic pain (04/17/24) Pain in unspecified hip (04/17/24) Low back pain, unspecified (04/17/24) Physical Therapy Treatment Note PT-OP-A Visit Information Start: 02/14/24 08:14 Freq: Status: Active Protocol: Document 04/17/24 15:14 AB (Rec: 04/17/24 16:19 AB [id number]) Out-Patient Physical Therapy Visit Information Visit Information Visit Type Treatment Note Visit Start Time 15:21 Visit Stop Time 16:04 Visit Number 11 Number of TECHNICAL SALES ENGINEER Visits 1 Evaluation Information Evaluation Date 02/14/24 PT-OP-B Current Condition Start: 02/14/24 08:14 Freq: Status: Active Protocol: Document 02/14/24 08:15 [facility] (Rec: 02/14/24 09:03 [facility] [id number]) Current Condition History of Current Condition Onset Date 3 years History of Current Condition 3 years ago had a episode where he couldn't walk due to pain in his right leg. He went to the ER and he was given a shot for pain relief but it did nothing for him. Then one day he had to crawl to the bathroom and once he got up from the toilet he could walk. Since that time his right leg on the top anterior quad is numb. He then started biking and he strained his right adductor and it has never gotten better . He notes the adductor wont relax. A few weeks ago he went and got a load of compost for his garden and after he finished the compost he sat down x 30 min afterwards his right ankle gave out and he couldn't walk. He also has a great amount of right calf tightness, if he tries to walk up a hill. He does have high blood pressure but he is on blood pressure medication. PT-OP-C Subjective Start: 02/14/24 08:14 Freq: Status: Active Protocol: Document 04/17/24 15:14 AB (Rec: 04/17/24 16:19 AB [id number]) OP-PT Subjective Patient Comments Patient Comments Patient reports the hamstrings are causing the most pain now , attributes to lifting a 60 lb suitcase, and falling. Patient reports he does get burning right right foot daily , mostly the big toe. Glute med right 4/5 but with excessive hip flexor compensation PT-OP-F Manual Assessment Start: 02/14/24 08:14 Freq: Status: Active Protocol: Document 02/14/24 08:15 [facility] (Rec: 02/14/24 09:46 [facility] [id number]) Manual Assessments Soft Tissue Assessment Soft Tissue Mobility Assessment right sided calf tightness with decreased DF right foot right adductor tightness and tenderness especially at the proximal insertion Joint Mobility Assessment Joint Mobility Assessment right pubic upslip and right leg is shorter in supine decreased thoracic mobility and extension PT-OP-G Mobility & Gait Start: 02/14/24 08:14 Freq: Status: Active Protocol: Document 02/14/24 08:15 [facility] (Rec: 02/14/24 16:55 [facility] [id number]) OP Gait Assessment Gait Able to Maintain Weight Bearing Status Yes During Gait Comments Gait Comments Emmanuel walks with right LE in ER as compared to the left side. He says this is normal for him and he has always walked this way PT-OP-J Posture/Palpation/Skin Start: 02/14/24 08:14 Freq: Status: Active Protocol: Document 02/14/24 09:23 [facility] (Rec: 02/14/24 09:46 [facility] [id number]) Palpation Assessment Location right adductor Palpation Location tenderness to palpation at the pubic ramus attachment, Palpation Findings Soft Tissue Tightness,Spasm, Muscle Guarding Palpation Details muscle belly and proximal insertion tightness of the adductor right pubic bone Palpation Findings Tenderness Palpation Details right pubic bone is felt to be higher than the left and is tender PT-OP-K Range of Motion Start: 02/14/24 08:14 Freq: Status: Active Protocol: Document 02/14/24 09:23 [facility] (Rec: 02/14/24 09:46 [facility] [id number]) Lumbar Spine Range of Motion Lumbar Spine Active Testing Position Standing Flexion 50 Extension 10 Lateral Flexion Left 15 Lateral Flexion Right 15 ROM Limitations Soft Tissue Tightness Hip Goniometric Range of Motion Hip Left Hip ROM WFL Yes Right Hip ROM WFL Yes Ankle and Foot Goniometric Range of Motion Ankle and Foot Right Ankle/Foot ROM WFL No Testing Position Sitting Dorsiflexion with Knee Flexed 10 Dorsiflexion with Knee Extended 5 Comments right calf tightness limiting ankle dorsiflexion PT-OP-L Special Tests Start: 02/14/24 08:14 Freq: Status: Active Protocol: Document 02/14/24 09:23 [facility] (Rec: 02/14/24 09:46 [facility] [id number]) Special Tests Lumbar Spine Special Tests ASLR Test Results + Bilaterally Slump Test Results negative Straight Leg Raise Test Results negative PT-OP-M Strength Start: 02/14/24 08:14 Freq: Status: Active Protocol: Document 02/14/24 09:23 [facility] (Rec: 02/14/24 09:46 [facility] [id number]) Trunk Strength Trunk Manual Muscle Testing Flexion 3 Fair Core Stabilization poor transverse abdominal and pelvic floor recruitment, pt tends to bulge the abdominal muscle out verses pulling them in towards his spine for hip movement. PT-OP-Q Treatments Start: 02/14/24 08:14 Freq: Status: Active Protocol: Document 04/17/24 15:14 AB (Rec: 04/17/24 16:19 AB [id number]) Therapeutic Exercises Supine Exercises hip flexor stretch edge of bed Side bilateral Reps/Minutes 60 seconds X 2 each LE Comments with AROM knee flexion Sitting Exercises seated hip abduction with band Sitting Exercise Name HEP Side bilateral Resistance level 4 band Reps/Minutes one min X 1 Comments verbal cues Standing Exercises side stepping with band Standing Exercise Name HEP Side bilateral Resistance level 4 band Reps/Minutes 2 min then 40 sec Comments verbal cues to avoid toeing out, 40 sec in mini squat position ambulation with weight Standing Exercise Name HEP Reps/Minutes 10 feet X 3 Comments facing mirror, Pt ed to perform one minute, increase to twice a day if no i dynamic hamstring stretching Reps/Minutes x 10 Comments from a squat position with forearms resting on legs Pallof press Standing Exercise Name HEP Side bilateral Resistance level 4 band Reps/Minutes X15 each side Comments verbal and visual cues Manual Therapy Treatment Consent Patient gave verbal consent for manual Yes treatment Soft Tissue Mobilization right quadratus lumborum Body Location bilateral quadratus lumborum, and lumbar paraspinals Mobilization Type Cross-Friction,Myofascial Release,Sustained Pressure Intensity/Depth Moderate Body Position Sidelying Taping thoracic to SI Treatment Focus for pain and posture Type of Tape kinesiotape Skin Inspection WNL Comments thoracic, lumbar paraspinals to SI, horizontal across L5/SI area PT-OP-T Assessment and Plan Start: 02/14/24 08:14 Freq: Status: Active Protocol: Document 04/17/24 15:14 AB (Rec: 04/17/24 16:19 AB [id number]) Physical Therapy Assessment Goals 4 Impairment Decreased ankle ROM on the right side into DF Short Term Goal (STG) pt is educated on a home flexibility program for the calf musculature GOAL MET STG Duration 4 weeks Utility Bill Collection Clerk Goal (LTG) Emmanuel presents with improved ankle ROM into DF on the right side by 5 degrees GOAL MET 3 Impairment right sided adductor spasm and tightness with pain to palpation over the pubic bone on the right and throughout the muscle belly Skilled Nursing Goal (LTG) pt no longer presents with tenderness and spasm over the right adductor GOAL MET LTG Duration 8 weeks 2 Impairment Decreased core strength for both lumbar and SI joint stabilization Short Term Goal (STG) Emmanuel is educated on a home exercise program for core stabilization good progress STG Duration 4 weeks Utility Bill Collection Clerk Goal (LTG) Emmanuel demonstrates improved stabilization with core recruitment and strength and ASLR test is negative Goal not yet met 1 Impairment right sided adductor pain and right calf pain that worsens with walking especially up hill and biking Pain levels range from 3-8/10 for the right adductors and 6/10 for the right calf Skilled Nursing Goal (LTG) Emmanuel reprots a overall reduction of pain to 2-3/10 and is able to increase his walking distance and resume biking without increased pain good progress LTG Duration 8 weeks Assessment Summary Assessment Emmanuel reports having no pain end of session. Patient reports radicular right LE pain/burning in foot persists, at times with sitting, but changing position doesn't often make a difference. Physical Therapy Plan Frequency and Duration Frequency of Treatment 2x/Week Duration of treatment (weeks) 8 Plan of Care Start Date 04/10/24 Plan of Care End Date 06/05/24 Next Visit Focus/Plan Next Note Type Treatment Note Next Visit Plan Eliminated ipsilateral trunk sidebend right with ambulation with 3 lb weights held overhead. Glute med activation and strengthening added to HEP to decrease right lateral lean/sidebend during ambulation.
--- NOTE | 2024-04-23 12:40 | PT.OTN ---
Current Diagnoses Other chronic pain (04/23/24) Pain in unspecified hip (04/23/24) Low back pain, unspecified (04/23/24) Physical Therapy Treatment Note PT-OP-A Visit Information Start: 02/14/24 08:14 Freq: Status: Active Protocol: Document 04/23/24 09:50 [facility] (Rec: 04/23/24 10:33 [facility] [id number]) Out-Patient Physical Therapy Visit Information Visit Information Visit Type Treatment Note Visit Start Time 09:50 Visit Stop Time 10:30 Visit Number 12 Number of RESIDENTIAL HOUSEKEEPER Visits 0 PT-OP-B Current Condition Start: 02/14/24 08:14 Freq: Status: Active Protocol: Document 02/14/24 08:15 [facility] (Rec: 02/14/24 09:03 [facility] [id number]) Current Condition History of Current Condition Onset Date 3 years History of Current Condition 3 years ago had a episode where he couldn't walk due to pain in his right leg. He went to the ER and he was given a shot for pain relief but it did nothing for him. Then one day he had to crawl to the bathroom and once he got up from the toilet he could walk. Since that time his right leg on the top anterior quad is numb. He then started biking and he strained his right adductor and it has never gotten better . He notes the adductor wont relax. A few weeks ago he went and got a load of compost for his garden and after he finished the compost he sat down x 30 min afterwards his right ankle gave out and he couldn't walk. He also has a great amount of right calf tightness, if he tries to walk up a hill. He does have high blood pressure but he is on blood pressure medication. PT-OP-C Subjective Start: 02/14/24 08:14 Freq: Status: Active Protocol: Document 04/23/24 09:50 [facility] (Rec: 04/23/24 09:52 [facility] [id number]) OP-PT Subjective Patient Comments Patient Comments pt notes he is doing better, his hamstring still gives him fits and he has some episodes with with calf, he has been working on the boat going up and down the ramp and it hurts but he gets through PT-OP-F Manual Assessment Start: 02/14/24 08:14 Freq: Status: Active Protocol: Document 02/14/24 08:15 [facility] (Rec: 02/14/24 09:46 [facility] [id number]) Manual Assessments Soft Tissue Assessment Soft Tissue Mobility Assessment right sided calf tightness with decreased DF right foot right adductor tightness and tenderness especially at the proximal insertion Joint Mobility Assessment Joint Mobility Assessment right pubic upslip and right leg is shorter in supine decreased thoracic mobility and extension PT-OP-G Mobility & Gait Start: 02/14/24 08:14 Freq: Status: Active Protocol: Document 02/14/24 08:15 [facility] (Rec: 02/14/24 16:55 [facility] [id number]) OP Gait Assessment Gait Able to Maintain Weight Bearing Status Yes During Gait Comments Gait Comments Emmanuel walks with right LE in ER as compared to the left side. He says this is normal for him and he has always walked this way PT-OP-J Posture/Palpation/Skin Start: 02/14/24 08:14 Freq: Status: Active Protocol: Document 02/14/24 09:23 [facility] (Rec: 02/14/24 09:46 [facility] [id number]) Palpation Assessment Location right adductor Palpation Location tenderness to palpation at the pubic ramus attachment, Palpation Findings Soft Tissue Tightness,Spasm, Muscle Guarding Palpation Details muscle belly and proximal insertion tightness of the adductor right pubic bone Palpation Findings Tenderness Palpation Details right pubic bone is felt to be higher than the left and is tender PT-OP-K Range of Motion Start: 02/14/24 08:14 Freq: Status: Active Protocol: Document 02/14/24 09:23 [facility] (Rec: 02/14/24 09:46 [facility] [id number]) Lumbar Spine Range of Motion Lumbar Spine Active Testing Position Standing Flexion 50 Extension 10 Lateral Flexion Left 15 Lateral Flexion Right 15 ROM Limitations Soft Tissue Tightness Hip Goniometric Range of Motion Hip Left Hip ROM WFL Yes Right Hip ROM WFL Yes Ankle and Foot Goniometric Range of Motion Ankle and Foot Right Ankle/Foot ROM WFL No Testing Position Sitting Dorsiflexion with Knee Flexed 10 Dorsiflexion with Knee Extended 5 Comments right calf tightness limiting ankle dorsiflexion PT-OP-L Special Tests Start: 02/14/24 08:14 Freq: Status: Active Protocol: Document 02/14/24 09:23 [facility] (Rec: 02/14/24 09:46 [facility] [id number]) Special Tests Lumbar Spine Special Tests ASLR Test Results + Bilaterally Slump Test Results negative Straight Leg Raise Test Results negative PT-OP-M Strength Start: 02/14/24 08:14 Freq: Status: Active Protocol: Document 02/14/24 09:23 [facility] (Rec: 02/14/24 09:46 [facility] [id number]) Trunk Strength Trunk Manual Muscle Testing Flexion 3 Fair Core Stabilization poor transverse abdominal and pelvic floor recruitment, pt tends to bulge the abdominal muscle out verses pulling them in towards his spine for hip movement. PT-OP-Q Treatments Start: 02/14/24 08:14 Freq: Status: Active Protocol: Document 04/23/24 09:50 [facility] (Rec: 04/23/24 10:33 [facility] [id number]) Therapeutic Exercises Supine Exercises ball bridges with knees flexed as well as knees extended Reps/Minutes x 10 reps each Comments supine with feet on the ball ball rolls with hamstring engagement Reps/Minutes x 20 single knee to chest stretch Reps/Minutes 2 x 30 sec hold each side isometric bridge Supine Exercise Name hip adduction /c isometric bridge hold Resistance HEP reviewed Equipment Used ball between knees Reps/Minutes 5 SH x10 Comments cued PPT TA as needed, pnfree reported abdominal bracing with LE extension Supine Exercise Name TKE SLR- HEP may be able to DC next tx Side bilateral Reps/Minutes X10 Comments Good TA contraction, ab draw in not bulging Supine TA and pelvic floor brace with march Reps/Minutes x 10 Comments no pain into the groin Standing Exercises side stepping with band Standing Exercise Name reviewed for HEP dynamic hamstring stretching Reps/Minutes x 10 Comments from a squat position with forearms resting on legs modified down dog using the plinth Reps/Minutes x 10 reps holding 10-20 seconds PT-OP-T Assessment and Plan Start: 02/14/24 08:14 Freq: Status: Active Protocol: Document 04/23/24 12:37 [facility] (Rec: 04/23/24 12:39 [facility] [id number]) Physical Therapy Assessment Assessment Summary Assessment Emmanuel is making good progress with improved hip mobility. He is still having some right sided hamstring tightness from his fall in the kitchen straining his hamstring but this is getting getter. I did add in supine ball rolls and ball bridges and he tolerated these well with his hamstring. He feels the lateral steps with theraband fatigues him quickly and I encouraged him to continue with these exercises for stabilization Physical Therapy Plan Frequency and Duration Frequency of Treatment 2x/Week Duration of treatment (weeks) 8 Plan of Care Start Date 04/10/24 Plan of Care End Date 06/05/24 Therapeutic Interventions Therapeutic Interventions Home Exercise Program,Joint Mobilizations,Manual Therapy, Neuromuscular Re-education, Patient/Caregiver Education, Self-Care/Home Management,Soft Tissue Mobilization, Therapeutic Exercises Modalities Cold Pack/Ice Massage Next Visit Focus/Plan Next Note Type Treatment Note Next Visit Plan Continue with glut med stabilization, core stabilization, and progress hamstring stability as tolerated.
--- NOTE | 2024-05-14 16:29 | PT.OTN ---
Current Diagnoses Other chronic pain (05/14/24) Pain in unspecified hip (05/14/24) Low back pain, unspecified (05/14/24) Physical Therapy Treatment Note PT-OP-A Visit Information Start: 02/14/24 08:14 Freq: Status: Active Protocol: Document 05/14/24 12:08 [facility] (Rec: 05/14/24 16:29 [facility] [id number]) Out-Patient Physical Therapy Visit Information Visit Information Visit Type Treatment Note Visit Note Access Code [email or web address] Visit Start Time 13:49 Visit Stop Time 14:33 Visit Number 13 Number of APPLIED STATISTICIAN Visits 1 PT-OP-B Current Condition Start: 02/14/24 08:14 Freq: Status: Active Protocol: Document 02/14/24 08:15 [facility] (Rec: 02/14/24 09:03 [facility] [id number]) Current Condition History of Current Condition Onset Date 3 years History of Current Condition 3 years ago had a episode where he couldn't walk due to pain in his right leg. He went to the ER and he was given a shot for pain relief but it did nothing for him. Then one day he had to crawl to the bathroom and once he got up from the toilet he could walk. Since that time his right leg on the top anterior quad is numb. He then started biking and he strained his right adductor and it has never gotten better . He notes the adductor wont relax. A few weeks ago he went and got a load of compost for his garden and after he finished the compost he sat down x 30 min afterwards his right ankle gave out and he couldn't walk. He also has a great amount of right calf tightness, if he tries to walk up a hill. He does have high blood pressure but he is on blood pressure medication. PT-OP-C Subjective Start: 02/14/24 08:14 Freq: Status: Active Protocol: Document 05/14/24 12:08 AB (Rec: 05/14/24 16:29 AB [id number]) OP-PT Subjective Patient Comments Patient Comments Patient reports he is recovering, comments he had a hard time walking while in [place], had to do a lot of walking. Patient reports he has been taking it easy over the last week. Patient reports sometimes he can only walk a few steps without pain, but other times can walk up and down the ramp to his boat without pain. PT-OP-F Manual Assessment Start: 02/14/24 08:14 Freq: Status: Active Protocol: Document 02/14/24 08:15 [facility] (Rec: 02/14/24 09:46 [facility] [id number]) Manual Assessments Soft Tissue Assessment Soft Tissue Mobility Assessment right sided calf tightness with decreased DF right foot right adductor tightness and tenderness especially at the proximal insertion Joint Mobility Assessment Joint Mobility Assessment right pubic upslip and right leg is shorter in supine decreased thoracic mobility and extension PT-OP-G Mobility & Gait Start: 02/14/24 08:14 Freq: Status: Active Protocol: Document 02/14/24 08:15 [facility] (Rec: 02/14/24 16:55 [facility] [id number]) OP Gait Assessment Gait Able to Maintain Weight Bearing Status Yes During Gait Comments Gait Comments Emmanuel walks with right LE in ER as compared to the left side. He says this is normal for him and he has always walked this way PT-OP-J Posture/Palpation/Skin Start: 02/14/24 08:14 Freq: Status: Active Protocol: Document 02/14/24 09:23 [facility] (Rec: 02/14/24 09:46 [facility] [id number]) Palpation Assessment Location right adductor Palpation Location tenderness to palpation at the pubic ramus attachment, Palpation Findings Soft Tissue Tightness,Spasm, Muscle Guarding Palpation Details muscle belly and proximal insertion tightness of the adductor right pubic bone Palpation Findings Tenderness Palpation Details right pubic bone is felt to be higher than the left and is tender PT-OP-K Range of Motion Start: 02/14/24 08:14 Freq: Status: Active Protocol: Document 02/14/24 09:23 [facility] (Rec: 02/14/24 09:46 [facility] [id number]) Lumbar Spine Range of Motion Lumbar Spine Active Testing Position Standing Flexion 50 Extension 10 Lateral Flexion Left 15 Lateral Flexion Right 15 ROM Limitations Soft Tissue Tightness Hip Goniometric Range of Motion Hip Left Hip ROM WFL Yes Right Hip ROM WFL Yes Ankle and Foot Goniometric Range of Motion Ankle and Foot Right Ankle/Foot ROM WFL No Testing Position Sitting Dorsiflexion with Knee Flexed 10 Dorsiflexion with Knee Extended 5 Comments right calf tightness limiting ankle dorsiflexion PT-OP-L Special Tests Start: 02/14/24 08:14 Freq: Status: Active Protocol: Document 02/14/24 09:23 [facility] (Rec: 02/14/24 09:46 [facility] [id number]) Special Tests Lumbar Spine Special Tests ASLR Test Results + Bilaterally Slump Test Results negative Straight Leg Raise Test Results negative PT-OP-M Strength Start: 02/14/24 08:14 Freq: Status: Active Protocol: Document 02/14/24 09:23 [facility] (Rec: 02/14/24 09:46 [facility] [id number]) Trunk Strength Trunk Manual Muscle Testing Flexion 3 Fair Core Stabilization poor transverse abdominal and pelvic floor recruitment, pt tends to bulge the abdominal muscle out verses pulling them in towards his spine for hip movement. PT-OP-Q Treatments Start: 02/14/24 08:14 Freq: Status: Active Protocol: Document 05/14/24 12:08 [facility] (Rec: 05/14/24 16:29 AB [id number]) Therapeutic Exercises Supine Exercises hip flexor stretch edge of bed Side bilateral Reps/Minutes 60 seconds X 2 each LE Comments with AROM knee flexion abdominal bracing with LE extension Supine Exercise Name Possibly DC from HEP Side bilateral Reps/Minutes X10 Comments Good TA contraction, ab draw in not bulging Sitting Exercises seated hip abduction with band Sitting Exercise Name HEP Side bilateral Resistance level 4 band Reps/Minutes one min X 1 Comments verbal cues Standing Exercises standing hip ext with abdominal bracing Standing Exercise Name resting on 2 pillows on raised mat Side bilateral Reps/Minutes X10 Comments Verbal cues to brace gently with core when lifting LE's. squat with band Side bilateral Resistance level 4 band Reps/Minutes X10 X 2 Comments verbal cues for hip hinge side stepping with band Standing Exercise Name reviewed Reps/Minutes 2 min Comments Verbal cues to hold squat position calf stretches Standing Exercise Name Gastroc and soleus- HEP Side bilateral Resistance R>L Equipment Used rail support bottom step Reps/Minutes 60 sec X 1 each Manual Therapy Treatment Soft Tissue Mobilization back/hip Body Location bilateral hip flexors Mobilization Type Cross-Friction,Rolling Intensity/Depth Moderate Body Position Hooklying PT-OP-T Assessment and Plan Start: 02/14/24 08:14 Freq: Status: Active Protocol: Document 05/14/24 12:08 AB (Rec: 05/14/24 16:29 AB [id number]) Physical Therapy Assessment Goals 4 Impairment Decreased ankle ROM on the right side into DF Short Term Goal (STG) pt is educated on a home flexibility program for the calf musculature GOAL MET STG Duration 4 weeks Toll Test Worker Goal (LTG) Emmanuel presents with improved ankle ROM into DF on the right side by 5 degrees GOAL MET 3 Impairment right sided adductor spasm and tightness with pain to palpation over the pubic bone on the right and throughout the muscle belly Mcc Goal (LTG) pt no longer presents with tenderness and spasm over the right adductor GOAL MET LTG Duration 8 weeks 2 Impairment Decreased core strength for both lumbar and SI joint stabilization Short Term Goal (STG) Emmanuel is educated on a home exercise program for core stabilization good progress STG Duration 4 weeks Mcc Goal (LTG) Emmanuel demonstrates improved stabilization with core recruitment and strength and ASLR test is negative Goal not yet met 1 Impairment right sided adductor pain and right calf pain that worsens with walking especially up hill and biking Pain levels range from 3-8/10 for the right adductors and 6/10 for the right calf Mcc Goal (LTG) Emmanuel reprots a overall reduction of pain to 2-3/10 and is able to increase his walking distance and resume biking without increased pain good progress LTG Duration 8 weeks Assessment Summary Assessment Patient reports he feels a little sore ambulating out of session without device. Hip flexor stiffness and hamstring stiiffness likely continue to impact fuctional mobility, ie ambulation and squatting. Physical Therapy Plan Frequency and Duration Frequency of Treatment 2x/Week Duration of treatment (weeks) 8 Plan of Care Start Date 04/10/24 Plan of Care End Date 06/05/24 Next Visit Focus/Plan Next Note Type Progress Note Next Visit Plan Continue with glut med stabilization, core stabilization, and progress hamstring stability as tolerated. assess HS length possibly HS stretch followed by fwd T to chair height
--- NOTE | 2024-06-10 14:17 | PT.OPDS ---
Current Diagnoses Other chronic pain (05/20/24) Pain in unspecified hip (05/20/24) Low back pain, unspecified (05/20/24) Visit Care Team Role Provider Type Lam Bearden MD Attending Provider Physician Family Provider Primary Care Provider Referring Provider Specialty: Family Practice Address: [address] [place] [address], [address], [address] Email: [email or web address] Visit Number Visit Number 14 Discharge Summary PT-OP-B Current Condition Start: 02/14/24 08:14 Freq: Status: Active Protocol: Document 02/14/24 08:15 [facility] (Rec: 02/14/24 09:03 [facility] [id number]) Current Condition History of Current Condition Onset Date 3 years History of Current Condition 3 years ago had a episode where he couldn't walk due to pain in his right leg. He went to the ER and he was given a shot for pain relief but it did nothing for him. Then one day he had to crawl to the bathroom and once he got up from the toilet he could walk. Since that time his right leg on the top anterior quad is numb. He then started biking and he strained his right adductor and it has never gotten better . He notes the adductor wont relax. A few weeks ago he went and got a load of compost for his garden and after he finished the compost he sat down x 30 min afterwards his right ankle gave out and he couldn't walk. He also has a great amount of right calf tightness, if he tries to walk up a hill. He does have high blood pressure but he is on blood pressure medication. PT-OP-C Subjective Start: 02/14/24 08:14 Freq: Status: Active Protocol: Document 05/20/24 09:45 [facility] (Rec: 05/20/24 10:40 [facility] [id number]) OP-PT Subjective Patient Comments Patient Comments pt notes he isn't able to do what he wants to do at this time as his pain limits him. The adductor pain he was experiencing initially is better but he notes he is not able to push himself with walking due to low back and nerve pain into the right quad . He would like a consult for spinal injection PT-OP-F Manual Assessment Start: 02/14/24 08:14 Freq: Status: Active Protocol: Document 02/14/24 08:15 [facility] (Rec: 02/14/24 09:46 [facility] [id number]) Manual Assessments Soft Tissue Assessment Soft Tissue Mobility Assessment right sided calf tightness with decreased DF right foot right adductor tightness and tenderness especially at the proximal insertion Joint Mobility Assessment Joint Mobility Assessment right pubic upslip and right leg is shorter in supine decreased thoracic mobility and extension PT-OP-G Mobility & Gait Start: 02/14/24 08:14 Freq: Status: Active Protocol: Document 02/14/24 08:15 [facility] (Rec: 02/14/24 16:55 [facility] [id number]) OP Gait Assessment Gait Able to Maintain Weight Bearing Status Yes During Gait Comments Gait Comments Emmanuel walks with right LE in ER as compared to the left side. He says this is normal for him and he has always walked this way PT-OP-J Posture/Palpation/Skin Start: 02/14/24 08:14 Freq: Status: Active Protocol: Document 02/14/24 09:23 [facility] (Rec: 02/14/24 09:46 [facility] [id number]) Palpation Assessment Location right adductor Palpation Location tenderness to palpation at the pubic ramus attachment, Palpation Findings Soft Tissue Tightness,Spasm, Muscle Guarding Palpation Details muscle belly and proximal insertion tightness of the adductor right pubic bone Palpation Findings Tenderness Palpation Details right pubic bone is felt to be higher than the left and is tender PT-OP-K Range of Motion Start: 02/14/24 08:14 Freq: Status: Active Protocol: Document 02/14/24 09:23 [facility] (Rec: 02/14/24 09:46 [facility] [id number]) Lumbar Spine Range of Motion Lumbar Spine Active Testing Position Standing Flexion 50 Extension 10 Lateral Flexion Left 15 Lateral Flexion Right 15 ROM Limitations Soft Tissue Tightness Hip Goniometric Range of Motion Hip Left Hip ROM WFL Yes Right Hip ROM WFL Yes Ankle and Foot Goniometric Range of Motion Ankle and Foot Right Ankle/Foot ROM WFL No Testing Position Sitting Dorsiflexion with Knee Flexed 10 Dorsiflexion with Knee Extended 5 Comments right calf tightness limiting ankle dorsiflexion PT-OP-L Special Tests Start: 02/14/24 08:14 Freq: Status: Active Protocol: Document 02/14/24 09:23 [facility] (Rec: 02/14/24 09:46 [facility] [id number]) Special Tests Lumbar Spine Special Tests ASLR Test Results + Bilaterally Slump Test Results negative Straight Leg Raise Test Results negative PT-OP-M Strength Start: 02/14/24 08:14 Freq: Status: Active Protocol: Document 02/14/24 09:23 [facility] (Rec: 02/14/24 09:46 [facility] [id number]) Trunk Strength Trunk Manual Muscle Testing Flexion 3 Fair Core Stabilization poor transverse abdominal and pelvic floor recruitment, pt tends to bulge the abdominal muscle out verses pulling them in towards his spine for hip movement. PT-OP-T Assessment and Plan Start: 02/14/24 08:14 Freq: Status: Active Protocol: Document 05/20/24 09:45 [facility] (Rec: 05/20/24 10:40 [facility] [id number]) Physical Therapy Assessment Goals 4 Impairment Decreased ankle ROM on the right side into DF Short Term Goal (STG) pt is educated on a home flexibility program for the calf musculature GOAL MET STG Duration 4 weeks Search Marketing Coordinator Goal (LTG) Emmanuel presents with improved ankle ROM into DF on the right side by 5 degrees GOAL MET 3 Impairment right sided adductor spasm and tightness with pain to palpation over the pubic bone on the right and throughout the muscle belly Senior Care Goal (LTG) pt no longer presents with tenderness and spasm over the right adductor GOAL MET LTG Duration 8 weeks 2 Impairment Decreased core strength for both lumbar and SI joint stabilization Short Term Goal (STG) Emmanuel is educated on a home exercise program for core stabilization good progress STG Duration 4 weeks Senior Care Goal (LTG) Emmanuel demonstrates improved stabilization with core recruitment and strength and ASLR test is negative Goal not yet met 1 Impairment right sided adductor pain and right calf pain that worsens with walking especially up hill and biking Pain levels range from 3-8/10 for the right adductors and 6/10 for the right calf Senior Care Goal (LTG) Emmanuel reprots a overall reduction of pain to 2-3/10 and is able to increase his walking distance and resume biking without increased pain overall right side adductor pain has been reduced to 2-3/ 10 pain however Emmanuel feels he hasn't been able to push his walking distance due to back pain and referred pain into the quad and calf LTG Duration 8 weeks Assessment Summary Assessment Emmanuel has been seen for 14 visits in PT with a focus on core stabilization and improved hip and LE flexibility. He has done well with his exercise program and the initial adductor pain is improved. He however is still dealing with low back discomfort and referred pain into the anterior quad and calf muscles with walking. He notes especially walking on eneven surfaces such as the beach or on grass or with up hill that the referral of pain starts. He is not able to push his distances due to pain . At this time Emmanuel is independent with a HEP and he would benefit from ortho consult and possibly a referral for spinal injection. He will be discharged from PT at this time Physical Therapy Plan Discharge Physical Therapy Discharge Reasons Plateau in Progress
== END 2024-06-17 12:42 | disposition home or self-care (01) ==
LOC: PHYS 09:45
PROVIDERS: Family Provider Family Medicine; PCP Family Medicine; Referring Provider Family Medicine; Visit Provider Family Medicine
DX: M25.559 Pain in unspecified hip (principal); G89.29 Other chronic pain; M54.50 Low back pain, unspecified
CPT/HCPCS: 97110; 97140; 97161; 97535

== ENCOUNTER 2024-07-08 13:53 | Outpatient (CLI) | payer MEDICARE, OTHER, SELFPAY ==
[2024-07-08] VITALS (10 sets, daily range): BP systolic 137–194; BP diastolic 64–91; PULSE 54–64; RESP 18–20; O2SAT 96–100
--- NOTE | 2024-07-08 14:30 | DI.RAD.S_ITS ---
PROCEDURE: PAIN L/S TRANSFORAMINAL INJECT INDICATIONS: Right L5-S1 transforaminal ABHINAV COMPARISON: None. FINDINGS: Fluoroscopic spot filming was performed to verify placement of spinal needles at the right L5-S1 level(s), as labeled on the films. Appropriate location(s) of the needle tip(s) was confirmed by injection of iodinated contrast. IMPRESSION: Fluoroscopy for right L5-S1 transforaminal steroid injection. Dictated by: Neema Red M.D. on 07/08/2024 at 22:05 Approved by: Neema Red M.D. on 07/08/2024 at 22:22
[2024-07-08] MEDS: MIDAZOLAM 2 MG/2 ML VIAL IV (15:05)
[2024-07-08] MEDS: BUPIVACAINE 0.25% (PF) VIAL 2 ML INJ (15:10)
[2024-07-08] MEDS: BETAMETHASONE 30 MG/5 ML MDV 12 MG INJ (15:11)
[2024-07-08] MEDS: DEXAMETHASONE 10 MG/ML VIAL INJ (15:11)
[2024-07-08] MEDS: iopamidoL 15 ML VIAL 3 ML INJ (15:11)
--- NOTE | 2024-07-08 15:27 | P.PCN_ITS ---
Date/Time/Diagnoses Date of procedure: 07/08/24 Time of procedure: 15:27 Pre-procedure diagnosis: 1. FORAMINAL STENOSIS WITH LE SYMPTOMS Post-procedure diagnosis: same Procedure Notes Procedure: 1. FLUOROSCOPICALLY GUIDED CONTRAST CONTROLLED TRANSFORAMINAL EPIDURAL STEROID INJECTION - RIGHT L4/5 TFESI Indications: Emmanuel is referred by Dr. Bearden for treatment of Foraminal Stenosis with Right LE Symptoms Physician: Vern Shetty Total Fluoroscopy time (seconds): 9 Total sedation minutes: 17 Complications: none Procedure in detail & Post-procedure care: FINDINGS Foraminal Nerve Root Compression secondary to disc disease and facet hypertrophy DESCRIPTION OF PROCEDURE Following review of allergy and review of potential side effects and complications, including, but not necessarily limited to, infection, allergic reaction, local tissue breakdown, stroke, temporary or permanent nerve injury, paralysis, and possible , the patient indicated that the patient understood and agreed to proceed. An informed consent document was signed by the patient, witnessed by a nurse, and placed in the patient's chart. Additionally, other treatment options including medications, modalities, and physical therapy were reviewed with the patient. After review of previous anaesthesic history and IV conscious sedation the patient was deemed safe to proceed with today?s procedure with IV conscious sedation as ASA class II designation. Safety time-out was performed to confirm patient ID, procedure to be performed and site of procedure. IV sedation was accomplished with a combination of 2mg of Versed was administered by the RN after DO order, titrated to patient comfort during the course of the procedure while the patient remained responsive to all verbal commands In the prone position following sterile prep and drape of the lumbar region, the right L4/5 posterior neuroforamen was identified fluoroscopically. The skin was anesthetized via a 25-gauge 1.5-inch needle with 1% lidocaine solution. At this point, a 25-gauge 3.5-inch spinal needle was atraumatically introduced and advanced under fluoroscopic guidance through the posterior right L4/5 neuroforamen to approximately the anterior aspect of the canal. Depth was confirmed on lateral view. Following negative aspiration, injection of approximately 1.5cc of Isovue 200 under live fluoroscopy in the AP view co nfirmed excellent flow along the nerve root, into the epidural space without vascular or intrathecal uptake observed Radiological data, including multiple fluoroscopic views of the lumbosacral spin e, reveal a spinal needle at the right L4/5 posterior neuroforamen. Subsequent views show flow of contrast material flowing superiorly and inferiorly along the nerve root confirming epidural flow. Subsequently, a test dose of 1.5 cc of 1% lidocaine solution was administered and patient was observed for two minutes for signs or symptoms of complications, including abdominal pain, shortness of breath, bilateral upper or lower extremity weakness, nausea and vomiting, prior to steroid injection. At this point, a total of 2cc or 10mg of dexamethasone and 6mg of betamethasone was injected without incident. The procedure tolerated the procedure well without signs or symptoms of complications prior to transfer to the recovery area continued monitoring without incident. The patient was then transferred to the recovery area where they were observed for an appropriate time after the injection. The patient reported a VAS score of 7 prior to the procedure and a post- procedure VAS of 0. POST OP INSTRUCTIONS The patient was provided a Pain Log to continue to record their response to the target-specific procedure prior to follow-up visit with their referring physician. Additionally, specific post-injection care instructions and a contact number to our office were provided if concerns arise regarding possible complications associated with the procedure are suspected.
== END 2024-07-08 15:38 | disposition home or self-care (01) ==
LOC: RAD 13:53
PROVIDERS: Family Provider Family Medicine; PCP Family Medicine; Referring Provider Physical Medicine & Rehabilitation; Visit Provider Physical Medicine & Rehabilitation
DX: M48.061 Spinal stenosis, lumbar region without neurogenic claudication (principal); M51.16 Intervertebral disc disorders with radiculopathy, lumbar region; M47.26 Other spondylosis with radiculopathy, lumbar region
CPT/HCPCS: 64483; 99152; J0702; J1100; J2250; J3490

== ENCOUNTER 2024-09-04 08:14 | Outpatient (CLI) | payer MEDICARE, OTHER, SELFPAY ==
[2024-09-04] VITALS (7 sets, daily range): BP systolic 136–179; BP diastolic 65–84; PULSE 53–62; RESP 12–20; TEMP 36.6; O2SAT 96–99
--- NOTE | 2024-09-04 | DI.RAD.S_ITS ---
PROCEDURE: PAIN L INTERLAMINAR/CAUDAL INJ INDICATIONS: Lumbar Radiculopathy COMPARISON: None. FINDINGS/IMPRESSION: Fluoroscopic spot filming was performed to verify placement of spinal needles at the L4-5 level(s), as labeled on the films. Appropriate location(s) of the needle tip(s) was confirmed by injection of iodinated contrast. Dictated by: Miguel Rice M.D. on 09/04/2024 at 15:01 Approved by: Miguel Rice M.D. on 09/04/2024 at 15:01
[2024-09-04] MEDS: MIDAZOLAM 2 MG/2 ML VIAL IV (09:16)
[2024-09-04] MEDS: BUPIVACAINE 0.25% (PF) VIAL 2 ML INJ (09:20)
[2024-09-04] MEDS: iopamidoL 15 ML VIAL 3 ML INJ (09:27)
[2024-09-04] MEDS: BETAMETHASONE 30 MG/5 ML MDV 12 MG INJ (09:27)
[2024-09-04] MEDS: DEXAMETHASONE 10 MG/ML VIAL INJ (09:27)
--- NOTE | 2024-09-04 09:30 | P.PCN_ITS ---
Date/Time/Diagnoses Date of procedure: 09/04/24 Time of procedure: 09:30 Pre-procedure diagnosis: 1. HNP WITH RADICULAR FEATURES, 2. MULTILEVEL CENTRAL STENOSIS, Post-procedure diagnosis: same Procedure Notes Procedure: 1. FLUOROSCOPICALLY GUIDED CONTRAST CONTROLLED INTERLAMINAR EPIDURAL STEROID INJECTION -L4/5 Indications: Emmanuel is referred by Dr. Bearden for treatment of Bilateral Foraminal Stenosis R>L LE symptoms. Physician: Vern Shetty Total Fluoroscopy time (seconds): 5 Total sedation minutes: 8 Complications: none Procedure in detail & Post-procedure care: FINDINGS Multilevel Central Spinal Stenosis with Nerve Root Compression DESCRIPTION OF PROCEDURE Fluoroscopically guided, contrast-controlled L4/5 translaminar epidural steroid injection. Following review of allergy and review of potential side effects and complications, including, but not necessarily limited to, infection, allergic reaction, local tissue breakdown, temporary as well as permanent nerve injury, paralysis, stroke and possible , the patient indicated that the patient understood and agreed to proceed. An informed consent document was signed by the patient, witnessed by a nurse, and placed in the patient's chart. Additionally, other treatment options including modalities, medications, and physical therapy were reviewed with the patient. After review of previous anaesthesic history and IV conscious sedation the patient was deemed safe to proceed with today?s procedure with IV conscious sedation as ASA class II designation. Safety time-out was performed to confirm patient ID, procedure to be performed and site of procedure. IV sedation was accomplished with a combination of 2mg of Versed was administered by the RN after DO order, titrated to patient comfort during the course of the procedure while the patient remained responsive to all verbal commands In the prone position, following sterile prep and drape of the lumbar region, the L4/5 translaminar space was identified fluoroscopically. The skin was anesthetized via a 25-gauge, 1.5inch needle with 1% lidocaine solution. At this point, a 22-gauge short bevel spinal needle was atraumatically introduced and a dvanced under fluoroscopic guidance into the region of the L4/5 translaminar space. Depth was confirmed on lateral view. Radiological data, including multiple fluoroscopic views of the lumbar spine, reveal a spinal needle at the L4/5 translaminar space. Lateral views then show placement of the needle in the epidural space. Subsequent views show contrast material flowing superiorly and inferiorly in the epidural space. No vascular or intrathecal uptake is observed. At this point, using loss of resistance technique with saline and air, the epidural space was entered. This was confirmed following negative aspiration with injection of approximately 1.5cc of Isovue 200, showing excellent epidural flow without vascular or intrathecal uptake. At this point, 1cc of 1% lidocaine solution combined with 2cc or 10mg of dexamethasone and 6mg betamethasone was injected without incident. The patient tolerated the procedure well without signs or symptoms of complications prior to transfer to the recovery area continued monitoring without incident. The patient was then transferred to the recovery area where they were observed for an appropriate period of time after the injection. The patient reported a VAS score of 6 prior to the procedure and a post- procedure VAS of 0. POST OP INSTRUCTIONS The patient was provided a Pain Log to continue to record their response to the target-specific procedure prior to follow-up visit with their referring physician. Additionally, specific post-injection care instructions and a contact number to our office were provided if concerns arise regarding possible complications associated with the procedure are suspected.
== END 2024-09-04 09:55 | disposition home or self-care (01) ==
LOC: RAD 08:15
PROVIDERS: Family Provider Family Medicine; PCP Family Medicine; Referring Provider Physical Medicine & Rehabilitation; Visit Provider Physical Medicine & Rehabilitation
DX: M51.16 Intervertebral disc disorders with radiculopathy, lumbar region (principal); M48.061 Spinal stenosis, lumbar region without neurogenic claudication
CPT/HCPCS: 62323; J0702; J1100; J2250; J3490

== ENCOUNTER → 2024-10-30 09:06 | Outpatient (CLI) | payer MEDICARE, OTHER, SELFPAY ==
--- NOTE | 2024-10-30 09:07 | DI.US.S_ITS ---
PROCEDURE: US ARTERIAL DUPLEX LE RT INDICATIONS: Right LE vacular claudication TECHNIQUE: Color and pulse Doppler interrogation was performed of the right lower extremity arterial system, with image documentation. COMPARISON: None. FINDINGS: External iliac artery: 541 centimeter/second, monophasic, turbulent, high resistance flow Common femoral artery: 154 cm/sec, with turbulent biphasic flow. Deep femoral artery: 185 cm/sec, with monophasic flow. Proximal superficial femoral artery: 67 cm/sec, with biphasic flow. Mid superficial femoral artery: 67 cm/sec, with biphasic flow. Distal superficial femoral artery: 53 cm/sec, with biphasic flow. Popliteal artery: 46 cm/sec, with biphasic flow. Posterior tibial artery: 39 cm/sec, with biphasic flow. Anterior tibial artery/dorsalis pedis: 40 cm/sec, with biphasic flow. Teresa-scale imaging description: There is a severe/high-grade distal right external iliac artery stenosis. There is small vessel disease present with luminal narrowing noted on imaging in the posterior tibial and anterior tibial arteries. IMPRESSION: 1. Severe/high-grade right external iliac artery stenosis. 2. Distal runoff vessels are diseased. Comment: Consider referral for potential endovascular right iliac stent placement if the patient has lifestyle limiting short distance claudication. Dictated by: Fede Amin M.D. on 10/30/2024 at 10:36 Approved by: Fede Amin M.D. on 10/30/2024 at 10:41
== END ==
LOC: US 09:06
PROVIDERS: Family Provider Family Medicine; PCP Family Medicine; Referring Provider Physical Medicine & Rehabilitation; Visit Provider Physical Medicine & Rehabilitation
DX: I70.201 Unspecified atherosclerosis of native arteries of extremities, right leg (principal)
CPT/HCPCS: 93926

== ENCOUNTER → 2025-03-13 06:58 | Outpatient (CLI) | payer MEDICARE, OTHER, SELFPAY ==
[2025-03-13 07:39] LABS: Add Manual Diff / Slide Review NO; Basophils Absolute Auto 0 /uL (0-100); Basophils Percent Auto 0.9 % (0-2); Eosinophils Absolute Auto 200 /uL (0-450); Eosinophils Percent Auto 2.9 % (2-4); Hematocrit 43.3 % (41-53); Hemoglobin 14.7 g/dL (13.5-17.5); Lymphocytes Absolute Auto 1500 /uL (1100-4500); Lymphocytes Percent Auto 26.9 % (25-40); Mean Corpuscular HGB Conc 33.9 % (30-36); Mean Corpuscular Hemoglobin 30.8 PG (26-34); Mean Corpuscular Volume 90.7 fL (80-100); Monocytes Absolute Auto 700 /uL (0-900); Monocytes Percent Auto 12.3 % (3-14); Neutrophils Absolute Auto 3100 /uL (1500-7000); Platelet Count 214 X10^3/uL (150-400); Red Blood Cell Count 4.77 X10^6/uL (4.5-5.9); Red Cell Distribution Width 14.1 % (11.6-14.8); White Blood Cell Count 5.4 X10^3/uL (4.5-11.0)
[2025-03-13 07:59] LABS: Alanine Aminotransferase 18 IU/L (<50); Albumin 4.3 g/dL (3.5-5.0); Alkaline Phosphatase 62 U/L (38-126); Aspartate Aminotransferase 40 IU/L (17-59); BUN Creatinine Ratio 18.8 (6-22); Bilirubin Total 0.7 mg/dL (0.2-1.3); Blood Urea Nitrogen 26 mg/dL (9-20); Carbon Dioxide 23 mmol/L (22-32); Chloride 98 mmol/L (98-107); Cholesterol 309 mg/dL (140-199); Estimated Glomerular Filt Rate 54 mL/min (>60); Globulin 2.1 g/dL (1.7-4.1); Glucose 100 mg/dL (70-99); HDL Cholesterol 63 mg/dL (40-60); HEMOLYSIS < 15 (0-50); LDL Cholesterol Calculated 217 mg/dL (<100); Potassium 4.8 mmol/L (3.4-5.1); Sodium 128 mmol/L (137-145); Total Protein 6.4 g/dL (6.3-8.2); Triglycerides 146 mg/dL (35-150)
[2025-03-13 08:28] LABS: Prostate Specific Antigen Scrn 1.63 ng/mL (0.1-4.0)
[2025-03-13 08:59] LABS: Free T4, Direct Thyroxine 1.41 ng/dL (0.78-2.19)
== END ==
PROVIDERS: Family Provider Family Medicine; PCP Family Medicine; Referring Provider Family Medicine; Visit Provider Family Medicine
DX: I10 Essential (primary) hypertension (principal); Z12.5 Encounter for screening for malignant neoplasm of prostate; E78.2 Mixed hyperlipidemia; E03.9 Hypothyroidism, unspecified
CPT/HCPCS: 36415; 80053; 80061; 84439; 84443; 85025; G0103